=== PATIENT | female | born 1955 | race Caucasian/White ===

== ENCOUNTER → 2019-03-15 14:53 | Outpatient (BNVA) | payer MEDICAID, SELFPAY | PROVIDERS: Family Provider Registered Nurse; PCP Registered Nurse; Visit Provider Specialist | DX: G40.209 Localization-related (focal) (partial) symptomatic epilepsy and epileptic syndromes with complex partial seizures, not intractable, without status epilepticus (principal) | CPT/HCPCS: 99213 ==

== ENCOUNTER → 2019-07-28 15:02 | Outpatient (BNVA) | payer MEDICAID, SELFPAY | PROVIDERS: Family Provider Registered Nurse; PCP Registered Nurse; Visit Provider Specialist | DX: G40.209 Localization-related (focal) (partial) symptomatic epilepsy and epileptic syndromes with complex partial seizures, not intractable, without status epilepticus (principal) | CPT/HCPCS: 99214 ==

== ENCOUNTER → 2019-11-30 13:39 | Outpatient (BNVA) | payer MEDICAID, SELFPAY | PROVIDERS: Family Provider Registered Nurse; PCP Registered Nurse; Visit Provider Specialist | DX: G40.209 Localization-related (focal) (partial) symptomatic epilepsy and epileptic syndromes with complex partial seizures, not intractable, without status epilepticus (principal) | CPT/HCPCS: 99214 ==

== ENCOUNTER → 2020-05-02 12:50 | Outpatient (BNVA) | payer MEDICAID, SELFPAY | PROVIDERS: Family Provider Registered Nurse; PCP Registered Nurse; Visit Provider Specialist | DX: G40.209 Localization-related (focal) (partial) symptomatic epilepsy and epileptic syndromes with complex partial seizures, not intractable, without status epilepticus (principal) | CPT/HCPCS: 99213 ==

== ENCOUNTER → 2020-05-08 16:02 | Outpatient (BNVA) | payer MEDICAID, SELFPAY | PROVIDERS: Family Provider Registered Nurse; PCP Registered Nurse; Visit Provider Registered Nurse | DX: I10 Essential (primary) hypertension (principal) | CPT/HCPCS: 80053; 80061; 85025 ==

== ENCOUNTER → 2020-09-12 10:46 | Outpatient (BNVA) | payer MEDICAID, SELFPAY | PROVIDERS: Family Provider Registered Nurse; PCP Registered Nurse; Visit Provider Specialist | DX: M51.16 Intervertebral disc disorders with radiculopathy, lumbar region (principal); G40.209 Localization-related (focal) (partial) symptomatic epilepsy and epileptic syndromes with complex partial seizures, not intractable, without status epilepticus; G40.309 Generalized idiopathic epilepsy and epileptic syndromes, not intractable, without status epilepticus; R41.3 Other amnesia; R20.0 Anesthesia of skin | CPT/HCPCS: 99215 ==

== ENCOUNTER 2020-10-10 10:32 | Outpatient (CLI) | payer MEDICAID, SELFPAY ==
--- NOTE | 2020-10-10 11:00 | MR_ITS ---
WS: [id number] MRI LUMBAR SPINE NONCONTRAST TECHNIQUE: Sagittal T1, T2 and STIR imaging. Axial T1 and T2 imaging. CLINICAL INFORMATION: R20.0 - Anesthesia of skin COMPARISON: None. FINDINGS: Mild lumbar curve. No acute compression. Chronic compression superior endplate T12. Chronic biconcave compression at L1. Mild chronic biconcave compression L4. No acute compression fractures. L1 and L4 compression deformities have progressed since 2012. Mild disc bulging T12-L1 with slight effacement o f ventral thecal sac and mild central canal stenosis. L1-L2: Central disc protrusion with moderate central canal stenosis. Crowding of the cauda equina ner ve rootlets. Prominent dorsal epidural fat and facet arthropathy contributes to stenosis. This is sli ghtly progressed since 2012. Right foraminal protrusion impinges the exiting right L1 nerve root with moderate right foraminal narrowing. This is progressed from previous. L2-L3: Mild annular bulging with mild central canal stenosis. Moderate facet arthropathy with ligamen t flavum hypertrophy. Mild bilateral foraminal narrowing. L3-L4: Mild disc bulging with osteophytic ridging. Shallow central protrusion with moderate central c anal stenosis. Moderate facet arthropathy with ligament flavum hypertrophy. Left foraminal protrusion with moderate left foraminal narrowing. Mild right foraminal narrowing. Moderate facet arthropathy. Spinal canal narrowing at this level is new since 2012 L4-L5: Mild disc bulging with moderate central canal stenosis. Impingement traversing L5 nerve roots bilaterally. Moderate facet arthropathy and ligamentum flavum hypertrophy. Left facet edema. Left for aminal protrusion impinges the exiting left L4 nerve root with severe left foraminal narrowing. Centr al canal stenosis at this level has progressed. L5-S1: Mild disc bulging with osteophytic ridging. Central canal is patent. Moderate left and mild ri ght foraminal narrowing. Moderate facet arthropathy. Visualized pelvic bony structures: Normal. Paravertebral soft tissues: Normal. MR/MR lumbar spine wo con* [id number] IMPRESSION: 1. Chronic compression deformities described above. No acute compression fract ures. 2. Moderate central canal narrowing at L1-2, L3-4 and L4-5 progressed since 13. Prominent dorsal epidural fat in combination with facet arthropathy and lig amentum flavum hypertrophy contributes to central canal stenosis. 3. Moderate right L1-2 foraminal narrowing impinges the exiting right L1 nerv e root. This is progressed compared to previous. 4. Moderate left L3-4 and moderate to severe left L4-5 foraminal narrowing wit h small foraminal protrusions impinges the exiting left L3 and L4 nerve roots r espectively. This is progressed compared to previous. 5. Moderate facet arthropathy worse at left L4-L5 and bilateral L5-S1. 6. Mild central canal stenosis in the fighter pilot imaging cervical spine due to disc osteophyte complexes.
== END 2020-10-10 10:33 | disposition home or self-care (01) ==
LOC: RADSHAW 10:35
PROVIDERS: PCP Registered Nurse; Visit Provider Specialist
DX: R20.0 Anesthesia of skin (principal); M48.02 Spinal stenosis, cervical region; M25.78 Osteophyte, vertebrae; M47.816 Spondylosis without myelopathy or radiculopathy, lumbar region; M47.817 Spondylosis without myelopathy or radiculopathy, lumbosacral region; M48.061 Spinal stenosis, lumbar region without neurogenic claudication
CPT/HCPCS: 72148

== ENCOUNTER → 2020-11-01 09:35 | Outpatient (BNVA) | payer MEDICAID, SELFPAY | PROVIDERS: PCP Registered Nurse; Visit Provider Specialist | DX: G40.209 Localization-related (focal) (partial) symptomatic epilepsy and epileptic syndromes with complex partial seizures, not intractable, without status epilepticus (principal); R41.3 Other amnesia; M51.16 Intervertebral disc disorders with radiculopathy, lumbar region | CPT/HCPCS: 99214 ==

== ENCOUNTER 2021-05-06 14:48 | Observation (INO) | payer MEDICARE, MEDICAID, SELFPAY ==
--- NOTE | 2021-05-06 14:52 | ECG_ITS ---
[facility] Test Date: 2021-05-06 Pat Name: Kelly Kwong Department: Room: 250 Gender: Female Manager Customer: : 1955 Requested By: Zahira Dumont Order Number: [id number] Serafin MD: Silke Franco M.D. Measurements Intervals [place] Rate: 89 P: 28 SC: 175 QRS: -10 QRSD: 102 T: 13 QT: 351 QTc: 429 Interpretive Statements SINUS RHYTHM POSSIBLE LEFT ATRIAL ENLARGEMENT [-0.1mV P-WAVE IN V1/V2] POSSIBLE LEFT VENTRICULAR HYPERTROPHY [VOLTAGE CRITERIA PLUS LAE OR QRS WIDENING] POSSIBLE ANTERIOR MYOCARDIAL INFARCTION , PROBABLY OLD [30 ms Q WAVE IN V3/V4, OR R < 0.2 mV IN V4] No previous ECG available for comparison Electronically Signed On 05-07-2021 16:13:42 DAIRY PROCESSING SUPERVISOR by Silke Franco M.D. [id number]
--- NOTE | 2021-05-06 14:52 | XRR_ITS ---
PROCEDURE INFORMATION: Exam: XR Chest Exam date and time: 05/06/2021 2:52 PM Age: 66 years old Clinical indication: Pain; Chest pressure; Patient HX: C/O intermittent cp/pressure w near syncope x 2 weeks; Additional info: Dyspnea TECHNIQUE: Imaging protocol: XR of the chest. Views: 1 view. COMPARISON: No relevant prior studies available. FINDINGS: Lungs: Unremarkable. No consolidation. Pleural spaces: Unremarkable. No pleural effusion. No pneumothorax. Heart/Mediastinum: Unremarkable. No cardiomegaly. Bones/joints: Unremarkable. XR/XR chest 1V portable [id number] IMPRESSION: No acute findings.
[2021-05-06 14:54] VITALS: BP 135/87; PULSE 103; RESP 20; TEMP 36.3; O2SAT 95; BMI 36.5
[2021-05-06] MEDS: sodium chloride 0.9% 500 ML IV (15:00)
--- NOTE | 2021-05-06 15:07 | W.ED.GENADLT ---
HPI - General Adult General: Chief complaint: Arrhythmia/Palpitations Stated complaint: CHEST PAIN Time Seen by Provider: 05/06/21 14:51 History of Present Illness: CC: Chest Pain HPI: This is a [66] yo patient hx of HTN, HLD presenting to the ED w/ acute onset intermittent substernal chest pain since 2 hrs ago after experiencing 3 minutes of significant palptiations and diaphoresis. Patient alerted her son who is a cemetery vault installer and was told to call EMS. On arrival, patient still reports 5 out of 10 squeezing chest pain. Of note, patient tells me that she has had similar episodes of lightheadedness in the last 2 weeks. Pain is not tearing in nature and does not radiate to the back. Endorse nausea but has no associated with vomiting or decreased PO intake. Denies any recent sympathomimetic drug use. Patient denies any cough. Denies palpitations, syncope symptoms. Pain not positional. Norecent immobility, surgery, unilateral leg swelling, or prior PE. Patient denies any orthopnea, paroxysmal nocturnal dyspnea, weight gain, or increased leg swellings. En route, patient received nitroglycerin tablet and 325mg of ASA with some improvement in chest pain. Onset: 2 hrs of chest pain Duration: ongoing for the last 2 hrs Location: home Severity: moderate Associated symptoms: Reports chest pain and palpitations; Deny dyspnea, nausea, rash or vomiting Review of Systems Const: Denies: fever(s) or chills Eyes: Denies: change in vision ENMT: Denies: mouth pain Card: Reports: chest pain and palpitations Resp: Denies: dyspnea or non-productive cough GI: Denies: abdominal pain, nausea, vomiting or diarrhea : Denies: dysuria Musc: Denies: extremity pain Skin/Breast: Denies: rash or new lesions Neuro: Reports: other (+light-headedness); Denies: weakness in extremities Psych: Reports: other (Normal mood) [place]/Lymph: Denies: easy bruising PFSH ED PFSH: Medical History (Updated 05/06/21 @ 15:10 by Zahira Dumont MD) Hyperlipidemia Hypertension Family History Other CAD (coronary artery disease) Social History (Updated 05/06/21 @ 15:10 by Zahira Dumont MD) Smoking and tobacco status: never smoked Alcohol intake: never History of recent travel: No Physical Exam Const: COMMON NORMALS: alert HENMT: COMMON NORMALS: atraumatic HEAD & SCALP: atraumatic MOUTH: moist mucous membranes not abnormal Eye: COMMON NORMALS: EOMs intact bilaterally and conjunctivae normal CONJUNCTIVA: Yes conjunctivae normal Neck/C-Spine: COMMON NORMALS: full ROM and supple Resp: COMMON NORMALS: normal respiratory effort and clear to auscultation bilaterally AUSCULTATION: clear to auscultation bilaterally Cardio: COMMON NORMALS: regular rate RATE: regular rate OTHER: 2+ radial pulse, +diastolic murmur GI: COMMON NORMALS: Soft to palpation and non-tender PALPATION: Yes Soft to palpation Extremity: COMMON NORMALS: full ROM Neuro: SENSORIUM/ORIENTATION: Yes alert MOTOR EXAM: No Abnormal motor strength present and Other motor observations present (no focal motor deficits) OTHER: Mental status? Awake, alert, and oriented to self, year, month, location, and situation.? Following simple axial and appendicular commands.? Has appropriate fund of knowledge, comprehension, and insight.? Able to recall and understands pertinent aspects of medical history and current treatment status.? ? Language? Speech is fluent without word-finding difficulties.? Intact naming, expression, reception interviewer, and repetition.? ? Cranial nerves? 2,3,4,6: PERRL, EOMI with no nystagmus. 5: Intact sensation to light touch, symmetric? 7: Smile symmetrical, no facial droop.? 8: Hearing grossly intact.? 9,10: Normal palate movement.? 11: Normal strength in trapezius bilaterally 12: Tongue protrudes midline.? ? Motor examination? Normal bulk & tone. Strength as follows (R/L): Delts (5/5), Biceps (5/5), Triceps (5/5), Wrist ext (5/5), hip flexors (5/5), plantarflexors (5/5), dorsiflexors (5/5). ? Sensation? Light Touch: Grossly intact and equal in upper and lower extremities bilaterally? Romberg: Negative.? Distal joint position sense intact ? Coordination? [id number]-[id number]-finger movements intact without dysmetria or past-pointing.? Rapid fingertaps: preserved amplitude without decriment.? No tremor, myoclonus or truncal ataxia.? ? Gait/stance? Steady, normal narrow base gait with appropriate arm swing and turning.? Tandem gait without hesitation or loss of balance. Psych: COMMON NORMALS: speech normal SPEECH: Yes normal speech MOOD & AFFECT: Yes euthymic mood Course Vital Signs: Vital signs: Vital Signs Temperature 97.4 F L 05/06/21 14:54 Pulse Rate 84 05/06/21 15:42 Respiratory Rate 14 05/06/21 15:42 Blood Pressure 143/79 05/06/21 15:42 Pulse Oximetry 93 05/06/21 15:42 MDM - General Adult Medical Decision Making [66]yo patient w/ hx of HTN, HLD presenting to the ED With acute substernal chest pain X 2 hrs with hx of similar prior pain. Currently 5/10 chest pain. En route, patient received ASA 325mg and nitroSL. Given History And Exam today I have moderate to high suspicion for ACS/UA/NSTEMI. Today, I have NO suspicion for pneumothorax, pneumonia, pulmonary embolus, tamponade, aortic dissection or other emergent problem as a cause for this presentation. ECG did not show any signs of acute STEMI. Workup: ECG x2, CXR, CBC, BMP, Troponin x 2 Intervention: SL nitro, morphine, 500 cc of NS Findings: ECG: No overt evidence of STEMI, no hyperacute T waves, localizable STD or T wave inversions. No evidence of Brugada?s sign, delta wave, epsilon wave, significantly prolonged QTc, or malignant arrhythmia. No Q waves. Other Labs unremarkable for emergent problems. CXR: Without PTX, PNA, or widened mediastinum HEART score: 5 [4:30pm] On reassessment, the patient is currently chest pain free. S/p aspirin 325mg. Will defer antiplatelet and anticoagulation to the inpatient team. Pending repeat troponin. HDS, AAOx3. Troponin x 1 of 27. Chest pain improved after medication. Will be admitted for high risk light-headadness and chest pain workup. Disposition: Inpatient admission. Lab Data : 05/06/21 15:00 05/06/21 15:00 Radiology Impressions Chest X-Ray 05/06/21 14:52 IMPRESSION: No acute findings. Laboratory Results WBC 8.8 10^3/uL (4.0-10.0) 05/06/21 15:00 RBC 4.43 10^6/uL (4.1-5.3) 05/06/21 15:00 Hgb 13.9 g/dL (11.5-15.3) 05/06/21 15:00 Hct 41.9 % (37.0-47.0) 05/06/21 15:00 MCV 94.6 fl (81-99) 05/06/21 15:00 MCH 31.4 pg (28.0-34.0) 05/06/21 15:00 MCHC 33.2 g/dL (30.0-36.0) 05/06/21 15:00 RDW 12.5 % (12.1-15.1) 05/06/21 15:00 Plt Count 343 10^3/cmm (130-400) 05/06/21 15:00 MPV 11.0 fL (7.4-10.4) H 05/06/21 15:00 Neut % (Auto) 72.3 % 05/06/21 15:00 Lymph % (Auto) 20.9 % 05/06/21 15:00 [place] % (Auto) 5.5 % 05/06/21 15:00 Eos % (Auto) 0.3 % 05/06/21 15:00 Baso % (Auto) 0.8 % 05/06/21 15:00 Neut # (Auto) 6.38 10^3/uL (1.8-7.7) 05/06/21 15:00 Lymph # (Auto) 1.9 10^3/uL (0.8-4.8) 05/06/21 15:00 [place] # (Auto) 0.5 10^3/uL (0.2-0.9) 05/06/21 15:00 Eos # (Auto) 0.0 10^3/uL (0.0-0.8) 05/06/21 15:00 Baso # (Auto) 0.1 10^3/uL (0.0-0.1) 05/06/21 15:00 Nucleated RBC % (auto) 0 % 05/06/21 15:00 Nucleated RBCs # 0.0 /100WBC 05/06/21 15:00 Sodium 140 mmol/L (136-145) 05/06/21 15:00 Potassium 3.5 mmol/L (3.5-5.1) 05/06/21 15:00 Chloride 104 mmol/L (98-107) 05/06/21 15:00 Carbon Dioxide 24 mmol/L (22-29) 05/06/21 15:00 Anion Gap 15.5 (5-19) 05/06/21 15:00 BUN 12 mg/dL (8-23) 05/06/21 15:00 Creatinine 0.8 mg/dL (0.5-0.9) 05/06/21 15:00 GFR Calculation 72.0 mL/min (90-130) L 05/06/21 15:00 Glucose 146 mg/dL (65-115) H 05/06/21 15:00 Calculated Osmolality 292 mOsm/kg (285-295) 05/06/21 15:00 Calcium 9.4 mg/dL (8.5-10.5) 05/06/21 15:00 Troponin T Baseline 27 ng/L (0-10) H 05/06/21 15:00 Imaging Data Other Imaging: Radiologist's impression: [address] [address] XRay Report Signed Patient: Kelly Kwong Unit #: [id number] : 1955 Age/Sex: 66 / F ADM Date: 05/06/21 Loc: ER Room/Bed: Attending Dr: Ordering Provider/Ordering MD: Zahira Dumont MD Date of Service: 05/06/21 Procedure(s): XR chest 1V portable [id number] Accession Number(s): [id number] Report Number: [id number] PROCEDURE INFORMATION: Exam: XR Chest Exam date and time: 05/06/2021 2:52 PM Age: 66 years old Clinical indication: Pain; Chest pressure; Patient HX: C/O intermittent cp/pressure w near syncope x 2 weeks; Additional info: Dyspnea TECHNIQUE: Imaging protocol: XR of the chest. Views: 1 view. COMPARISON: No relevant prior studies available. FINDINGS: Lungs: Unremarkable. No consolidation. Pleural spaces: Unremarkable. No pleural effusion. No pneumothorax. Heart/Mediastinum: Unremarkable. No cardiomegaly. Bones/joints: Unremarkable. XR/XR chest 1V portable [id number] IMPRESSION: No acute findings. ? Dictated By: Angeline Barber MD Signed By: Angeline Barber MD Signed Date/Time: 05/06/21 154 DD/ 1452 Discharge Plan Discharge Patient Disposition: Admitted As Inpatient Clinical Impression: Near syncope, Diaphoresis, Chest pain Condition: Stable Coding Level of Care Code ED Correctional Officer Chief for Chg Fwd Exam Comprehensive
[2021-05-06 15:30] LABS: Basophils # 0.1 10^3/uL (0.0-0.1); Basophils % 0.8 %; Eosinophils % 0.3 %; Hematocrit 41.9 % (37.0-47.0); Hemoglobin 13.9 g/dL (11.5-15.3); Lymphocytes # 1.9 10^3/uL (0.8-4.8); Lymphocytes % 20.9 %; Mean Corpuscular HGB Conc 33.2 g/dL (30.0-36.0); Mean Corpuscular Hemoglobin 31.4 pg (28.0-34.0); Mean Corpuscular Volume 94.6 fl (81-99); Monocytes # 0.5 10^3/uL (0.2-0.9); Monocytes % 5.5 %; Neutrophils # 6.38 10^3/uL (1.8-7.7); Neutrophils % 72.3 %; Nucleated Red Blood Cells % 0 %; Platelet Count 343 10^3/cmm (130-400); Red Blood Count 4.43 10^6/uL (4.1-5.3); Red Cell Distribution Width 12.5 % (12.1-15.1); White Blood Count 8.8 10^3/uL (4.0-10.0)
[2021-05-06 15:42] VITALS: BP 143/79; PULSE 84; RESP 14; O2SAT 93
[2021-05-06 16:19] LABS: Anion Gap 15.5 (5-19); Blood Urea Nitrogen 12 mg/dL (8-23); Calcium 9.4 mg/dL (8.5-10.5); Carbon Dioxide 24 mmol/L (22-29); Chloride 104 mmol/L (98-107); Glucose 146 mg/dL (65-115); Osmolality Calculated 292 mOsm/kg (285-295); Potassium 3.5 mmol/L (3.5-5.1); Sodium 140 mmol/L (136-145)
[2021-05-06 16:21] LABS: Troponin(5th) Baseline 27 ng/L (0-10)
[2021-05-06 16:31] VITALS: BP 130/80; PULSE 88; RESP 16; O2SAT 95
[2021-05-06] MEDS: morphine 4 mg/mL SDV 1 mL 2 MG IVP (16:41)
--- NOTE | 2021-05-06 16:52 | ECG_ITS ---
[facility] Test Date: 2021-05-06 Pat Name: Kelly Kwong Department: Room: 250 Gender: Female Mover: : 1955 Requested By: Zahira Dumont Order Number: [id number] Serafin MD: Silke Franco M.D. Measurements Intervals [place] Rate: 72 P: 16 ME: 176 QRS: -14 QRSD: 86 T: 2 QT: 370 QTc: 408 Interpretive Statements SINUS RHYTHM VOLTAGE CRITERIA FOR LVH [MEETS CRITERIA IN ONE OF: R(aVL), S(V1), R(V5), R(V5/V6)+S(V1)] POSSIBLE ANTERIOR MYOCARDIAL INFARCTION , PROBABLY OLD [30 ms Q WAVE IN V3/V4, OR R < 0.2 mV IN V4] Compared to ECG 05/06/2021 15:16:15 No significant changes Electronically Signed On 05-07-2021 16:22:26 POWER PLANT SUPERINTENDENT by Silke Franco M.D. [id number]
--- NOTE | 2021-05-06 16:58 | PM.HP ---
Providers/Chief Complaint Admitting Physician: Spencer Napier MD Primary Care Provider: IVY Serra Chief Complaint: CHEST PAIN History of Present Illness Kelly Kwong is a 66 year old female with a past medical history of hypertension, lumbar disc disease, seizures, who presents to [facility] due to chest pain. Patient tells me that today after temple, she got home, and she felt lightheaded, dizzy almost as if she was in a pass out but never passed out that she start develop anterior chest pain, substernal, pressure-like pain, nonradiating, associate with shortness of breath, she also felt her heart beating she tells out of control, it was beating so hard and fast that she could hear in her ear, she is worried that she was having a heart attack so she called her brother who came over, who suggested for her to come to the hospital. Baseline troponin 29, EKG no acute ST-T wave changes, no current chest pain, hospitalist team was called for admission Review of Systems Const: Denies: fever(s) Eyes: Denies: change in vision or blurry vision ENMT: Denies: nasal congestion Resp: Denies: dyspnea, productive cough, non-productive cough or wheezing GI: Denies: abdominal pain, nausea, vomiting, hematemesis, diarrhea or constipation : Denies: flank pain, dysuria or urinary frequency Musc: Denies: neck pain or back pain Skin/Breast: Denies: rash Neuro: Denies: headache(s) Endo: Denies: polyuria or polydipsia Medications/Allergies Home Medications Medication Instructions Recorded Confirmed Last Taken Type ferrous sulfate 325 mg (65 mg 325 mg PO DAILY tab 03/15/19 05/06/21 05/06/21 History iron) tablet (iron) clobazam 20 mg tablet (Onfi) 20 mg PO BID #60 tab 04/02/21 05/06/21 05/06/21 Rx benazepril 20 mg tablet 20 mg PO DAILY 05/06/21 05/06/21 05/06/21 History citalopram 40 mg tablet 40 mg PO DAILY 05/06/21 05/06/21 05/06/21 History lovastatin 40 mg tablet 40 mg PO DAILY 05/06/21 05/06/21 05/05/21 History Allergies Allergy/AdvReac Type Severity Reaction Status Date / Time carbamazepine Allergy itching Verified 03/15/21 09:52 [From Carbatrol] PFSH Acute PFSH: Medical History Hyperlipidemia Hypertension Surgical History (Updated 05/06/21 @ 16:59 by Spencer Napier MD) History of open reduction and internal fixation (ORIF) procedure Family History Other CAD (coronary artery disease) Social History (Updated 05/06/21 @ 15:10 by Zahira Dumont MD) Smoking and tobacco status: never smoked Alcohol intake: never History of recent travel: No Vitals/I&O/Wt Last Vital Signs Temp 97.4 F L 05/06/21 14:54 Pulse 88 05/06/21 16:31 Resp 16 05/06/21 16:31 BP 130/80 05/06/21 16:31 Pulse Ox 95 05/06/21 16:31 Weight last 48 hrs Weight 93.44 kg Physical Exam Const: COMMON NORMALS: no acute distress and patient oriented x3 HENMT: COMMON NORMALS: normocephalic HEAD & SCALP: normocephalic Eye: COMMON NORMALS: Equal, round and reactive pupils present Neck/C-Spine: COMMON NORMALS: full ROM and no lymphadenopathy Lymph: LYMPHATIC: no lymphadenopathy noted Resp: COMMON NORMALS: normal respiratory effort, No retractions, No use of accessory muscles and clear to auscultation bilaterally AUSCULTATION: clear to auscultation bilaterally Cardio: COMMON NORMALS: no JVD, regular rate, regular rhythm, S1 normal heart sound present and S2 normal heart sound present RATE: regular rate RHYTHM: regular rhythm HEART SOUNDS: S1 normal heart sound present and S2 normal heart sound present GI: COMMON NORMALS: Normal to inspection, nondistended, normoactive bowel sounds present, Soft to palpation, non-tender, No hepatosplenomegaly present, no masses and no bruits PALPATION: Yes Soft to palpation and Yes No hepatosplenomegaly present Extremity: COMMON NORMALS: capillary refill normal, no clubbing, cyanosis or edema, no calf tenderness and no pedal edema Neuro: COMMON NORMALS: patient oriented x3 Psych: COMMON NORMALS: mental status grossly normal Data : 05/06/21 15:00 05/06/21 15:00 A&P Assessment and plan (1) Near syncope: Status: Acute (2) Chest pain: Status: Acute Plan Chest pain -Serial EKGs, serial troponins -Telemetry monitoring -Monitor for chest pain -Aspirin 325, 81 mg thereafter -Continue statin -Coreg 3.125 twice daily -Cardiac echocardiogram -Cardiac stress test tomorrow morning -N.p.o. midnight -Full code -Lovenox for DVT prophylaxis Presyncope -Monitor, telemetry monitoring -Cardiac echo -Carotid artery ultrasound History of seizures, continue clobazam Hypertension: Continue meds Attestations Medical Necessity Statement*: Patient requires hospitalization, outpatient with observation for chest pain Coding Level of Care Code Acute Field Account Manager for Shayy Guardado Diagnoses Near syncope R55 Chest pain R07.9
[2021-05-06 17:18] VITALS: BP 135/82; PULSE 81; RESP 18; O2SAT 96
--- NOTE | 2021-05-06 17:18 | ECG_ITS ---
[facility] Test Date: 2021-05-07 Pat Name: Kelly Kwong Department: Room: 250 Gender: Female Physician General Practice: Hetal Clark : 1955 Requested By: Spencer Napier Order Number: [id number] Betancourt MD: Silke Franco M.D. Interpretive Statements NAME OF STUDY: LEXISCAN SESTAMIBI STRESS TEST INDICATION: Chest Pain PROCEDURE: At the baseline, the blood pressure was 148/97 mmHg, oxygen saturation at 89% with a heart rate of 64 bpm. The electrocardiogram showed normal sinus rhythm, normal axis with poor anterior R wave progression. Nonspecific T wave inversion in lead III and aVF. The Lexiscan was infused over a period of 20 seconds. A total of 0.4 milligrams of Lexiscan was infused. The stress phase was continued for a total of 5 minutes. Heart rate at the end of the stress phase was 78 bpm and blood pressure of 154/85 mmHg. The EKG at the peak infusion revealed sinus rhythm with no significant ST-T wave changes. The study was terminated due to protocol completion. Sestamibi was injected 20 seconds after the Lexiscan infusion. Blood pressure at the end of the recovery phase was 152/90 mmHg, oxygen saturation 89% with a heart rate of 79 beats per minute. CONCLUSION: 1. No significant EKG changes with the LexiScan infusion. 2. No LexiScan induced chest pain or cardiac arrhythmia. 3. Normal blood pressure and heart rate response. 4. Sestamibi/sestamibi perfusion scan pending; see separate report. Electronically Signed On 05-07-2021 16:55:15 SALES DATA ANALYST by Silke Franco M.D. [id number]
[2021-05-06 17:19] VITALS: BMI 36.5
[2021-05-06] MEDS: aspirin 325 mg EC Tablet PO (17:45)
[2021-05-06] MEDS: enoxaparin 40 mg/0.4 mL Syringe SUBCUT (17:45)
[2021-05-06] MEDS: carvedilol 3.125 mg Tablet PO (17:45)
[2021-05-06] MEDS: famotidine 20 mg Tablet PO (17:45)
[2021-05-06 17:52] LABS: Troponin 5 2HR Delta 0 ABS# (0-10)
[2021-05-06 17:58] LABS: Estmated Average Glucose 108; Hemoglobin A1C 5.4 % (4.0-6.0)
[2021-05-06 18:37] LABS: Magnesium 1.8 mg/dL (1.7-2.3); NT Pro B Type Natriuretic Pept 85 pg/mL (0-125); Thyroid Stimulating Hormone 0.85 uIU/mL (0.27-4.20)
[2021-05-06 20:00] VITALS: BP 134/80; PULSE 72; RESP 17; TEMP 36.4; O2SAT 93
--- NOTE | 2021-05-06 20:52 | ECG_ITS ---
[facility] Test Date: 2021-05-07 Pat Name: Kelly Kwong Department: Room: 250 Gender: Female Practice Managers: : 1955 Requested By: Zahira Dumont Order Number: [id number] Serafin MD: Silke Franco M.D. Measurements Intervals [place] Rate: 57 P: 20 SC: 174 QRS: -8 QRSD: 92 T: 4 QT: 397 QTc: 389 Interpretive Statements SINUS BRADYCARDIA MINIMAL VOLTAGE CRITERIA FOR LVH, CONSIDER NORMAL VARIANT NONSPECIFIC T-WAVE ABNORMALITY Compared to ECG 05/06/2021 17:59:12 T-wave abnormality now present Sinus rhythm no longer present Myocardial infarct finding no longer present Electronically Signed On 05-07-2021 16:19:37 COMMISSIONING SPECIALIST by Silke Franco M.D. [id number]
[2021-05-06 21:26] LABS: Troponin 5 6HR 27.78 ng/L (0-10)
[2021-05-06 21:40] LABS: Troponin 5 6HR Delta 0.78 ng/L (0-12)
[2021-05-06 22:00] VITALS: PULSE 65
[2021-05-07] VITALS (7 sets, daily range): BP systolic 152–196; BP diastolic 79–92; PULSE 60–77; RESP 13–17; TEMP 36.6–37; O2SAT 94–96
[2021-05-07 04:30] LABS: Add Urine Microscopic? YES; Bilirubin Urine 1+ (Negative); Blood Urine 2+ (Negative); Glucose Urine UA Norm (Normal); Ketones Urine 1+ (Negative); Leukocyte Esterase Urine Negative (Negative); Nitrate Urine Negative (Negative); Protein Urine Trace (Negative); Specific Gravity, Urine 1.025 (1.005-1.030); Urine Appearance Clear (CLEAR); Urine Color Yellow (Yellow); Urobilinogen Urine 1 mg/dL (Negative); pH Urine 5 (5-7)
[2021-05-07 04:33] LABS: Add Urine Culture? No; Bacteria Urine 1+ /hpf; Mucus Urine 3+ /hpf; WBC Urine 0-4 /hpf (0-5)
[2021-05-07 04:55] LABS: Basophils % 0.7 %; Eosinophils # 0.1 10^3/uL (0.0-0.8); Eosinophils % 1.8 %; Hematocrit 35.7 % (37.0-47.0); Hemoglobin 11.7 g/dL (11.5-15.3); Lymphocytes # 1.6 10^3/uL (0.8-4.8); Lymphocytes % 27.1 %; Mean Corpuscular HGB Conc 32.8 g/dL (30.0-36.0); Mean Corpuscular Hemoglobin 31.6 pg (28.0-34.0); Mean Corpuscular Volume 96.5 fl (81-99); Mean Platelet Volume 10.1 fL (7.4-10.4); Monocytes # 0.6 10^3/uL (0.2-0.9); Monocytes % 9.1 %; Neutrophils # 3.71 10^3/uL (1.8-7.7); Neutrophils % 61.1 %; Nucleated Red Blood Cells % 0 %; Platelet Count 254 10^3/cmm (130-400); Red Cell Distribution Width 12.6 % (12.1-15.1); White Blood Count 6.1 10^3/uL (4.0-10.0)
[2021-05-07 05:19] LABS: Alanine Aminotransferase 10 U/L (0-33); Albumin Level 3.6 g/dL (3.5-5.2); Alkaline Phosphatase 70 IU/L (35-105); Anion Gap 13.3 (5-19); Aspartate Amino Transferase 16 U/L (0-32); Blood Urea Nitrogen 11 mg/dL (8-23); Calcium 8.7 mg/dL (8.5-10.5); Carbon Dioxide 26 mmol/L (22-29); Chloride 106 mmol/L (98-107); Chol HDL Ratio 2.63 mg/dL (0.0-4.40); Cholesterol 134 mg/dL (0-200); Globulin 1.9 g/dL (1.3-4.6); Glomerular Filtration Rate 100.3 mL/min (90-130); Glucose 103 mg/dL (65-115); HDL Cholesterol 51 mg/dL (60-100); LDL Cholesterol Calculated 71 mg/dL (50-129); LDL HDL Ratio 1.39 RATIO (0.00-3.22); Magnesium 1.9 mg/dL (1.7-2.3); Osmolality Calculated 292 mOsm/kg (285-295); Phosphorus 3.9 mg/dL (2.5-4.5); Potassium 4.3 mmol/L (3.5-5.1); Sodium 141 mmol/L (136-145); Total Bilirubin 0.2 mg/dL (0.15-1.2); Total Protein 5.5 g/dL (6.6-8.7); Triglycerides 61 mg/dL (0-150)
--- NOTE | 2021-05-07 06:36 | PC.NURSE ---
patient c/o chest pain, Bp 203/114, puse 72, tele reading normal sinus, 02 sat 95% in room air, c/o bilat carotid veins pounding, no bruitt, hospitalist notified, order received for nitro patch.
[2021-05-07] MEDS: nitroglycerin 1 gm/inch oint Pkt 1 INCH TOPICAL ×2 (06:50→14:18)
--- NOTE | 2021-05-07 07:00 | USCV_ITS ---
Kelly Kwong Age: 66 Gender: F : 1955 Exam Date: 05/07/2021 08:51 Ordering Phys: Spencer Napier MD Technologist: [place] [facility] [place]: [place] BP: 143 / 80 HR: 61 Rhythm: Sinus Technical Quality: Adequate MEASUREMENTS (Male / Female) Normal Values 2D ECHO LV Diastolic Diameter PLAX 4.0 cm 4.2 - 5.9 / 3.9 - 5.3 cm LV Systolic Diameter PLAX 2.3 cm IVS Diastolic Thickness 0.9 cm 0.6 - 1.0 / 0.6 - 0.9 cm IVS Systolic Thickness 1.3 cm LVPW Diastolic Thickness 1.1 cm 0.6 - 1.0 / 0.6 - 0.9 cm LVPW Systolic Thickness 1.5 cm LVOT Diameter 2.0 cm LV Ejection Fraction 2D Teich 72.1 % LV Ejection Fraction MOD 2C 64.8 % LV Ejection Fraction 2C AL 65.1 % LA Diameter 3.0 cm Aorta at Sinotubular Diameter 2.9 cm M-MODE Aortic Annulus Diameter 3.5 cm LA Ao Ratio MM 0.8 MV E Point Septal Separation 0.5 cm DOPPLER AV Peak Velocity 145.7 cm/s LVOT Peak Velocity 100.0 cm/s AV Area Cont Eq vti 2.3 cm squared AV Area Cont Eq pk 2.2 cm squared MV Area PHT 5.0 cm squared Mitral E to A Ratio 0.5 MV E' Velocity 30.5 cm/s Mitral E to MV E' Ratio 8.0 Mitral E to LV E' Lateral Ratio 6.9 Mitral E to LV E' Septal Ratio 9.4 TR Peak Velocity 237.7 cm/s TR Peak Gradient 22.6 mmHg TV Peak E Velocity 82.0 cm/s Right Atrial Pressure 3.0 mmHg Pulmonary Artery Systolic Pressu 25.6 mmHg RV Acceleration Time 0.1 s FINDINGS Left Ventricle Normal left ventricular size. LV systolic function is normal with EF of 55-60%. No regional wall motion abnormalities. Grade 1 diastolic dysfunction Right Ventricle The right ventricle is normal in size and function. Right Atrium The right atrium is normal in size. Left Atrium The left atrium is mildly dilated Mitral Valve Structurally normal mitral valve without significant stenosis or prolapse. There is mild mitral regurgitation. Aortic Valve Structurally normal aortic valve without significant sclerosis or stenosis. There is no aortic regurgitation. Tricuspid Valve Structurally normal tricuspid valve without significant stenosis. Trace tricuspid regurgitation. Pulmonary artery systolic pressure is normal. Pulmonic Valve Structurally normal pulmonic valve without significant stenosis. There is no pulmonic regurgitation. Pericardium Normal pericardium without effusion. Aorta Normal ascending aorta dimension. CONCLUSIONS LV systolic function is normal with EF of 55-60% Grade 1 diastolic dysfunction Left atrium is mildly dilated Mild mitral regurgitation No comparison studies are available Jose Luis Mcdonald MD (Electronically Signed) Final Date: 07 May 2021 17:12 S
--- NOTE | 2021-05-07 08:58 | ECG_ITS ---
[facility] Test Date: 2021-05-07 Pat Name: Kelly Kwong Department: Room: 250 Gender: Female Rouge Miller: : 1955 Requested By: Spencer Napier Order Number: [id number] Betancourt MD: Silke Franco M.D. Measurements Intervals [place] Rate: 63 P: 3 [place]: 165 QRS: -15 QRSD: 122 T: -11 QT: 378 QTc: 390 Interpretive Statements SINUS RHYTHM MODERATE INTRAVENTRICULAR CONDUCTION DELAY [110+ ms QRS DURATION] MODERATE VOLTAGE CRITERIA FOR LVH, CONSIDER NORMAL VARIANT [MEETS CRITERIA IN ONE OF: R(aVL), S(V1), R(V5), R(V5/V6)+S(V1)] NONSPECIFIC T-WAVE ABNORMALITY Compared to ECG 05/07/2021 04:24:23 Intraventricular conduction delay now present Sinus bradycardia no longer present T-wave abnormality still present Electronically Signed On 05-07-2021 16:10:57 BINDERY TECHNICIAN by Silke Franco M.D. [id number]
[2021-05-07] MEDS: regadenoson 0.4 Mg/5 ml Syringe IVP (11:19)
--- NOTE | 2021-05-07 11:56 | PC.CHAP ---
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 and tender visit [] Patient/Family/Request visit [] Outpatient visit [] Follow-up visit [] Physician referral [] Code/Alert [] Routine visit [] Staff referral [] Actively dying [] Patient sleeping [] Family support [] [] Out of room [] Palliative care [] [] Receiving care in room [] Pre-surgical visit [] Trauma [] Long length of stay [] ICU visit [] Other: Relational/Emotional Strength [] Patient feels connected with others/family/visitors/staff [] Distress [] Loneliness/isolation [] Abandonment Spirituality of Patient [] Person of Belén [] Attends Sikhism of their Belén [] Believes in Prayer [] Reads Bible or Pentecostalism materials [] There are Spiritual issues to be addressed Tech Ed Teacher Interventions [] Prayer [] Active listening [] Non-anxious presence [] Spiritual/emotional support [] Crisis/trauma care [] Spiritual counseling [] Bereavement support [] Provided bereavement packet [] Provided Bible/devotional materials [] Provided toy/stuffed animal, coloring book to patient or family member [] Provided Communion [] Anointing/[place] [] Salvation [] Completed spiritual assessment [] Other: Impact on Illness or Injury [] Angry [] Fearful [] Anxious [] Often cries [] Exhaustion [] Unable to work [] Unable to attend mormon [] Unable to walk/stand [] Unable to read [] Unable to drive [] Unable to eat/drink [] Unable to sleep [] Unable to be with family [] Patient intubated [] Other: Summary Time spent with patient 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 and tender 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 [] Patient/Family/Request visit [] Outpatient visit [] Follow-up visit [] Physician referral [] Code/Alert [x] Routine visit [] Staff referral [] Actively dying [] Patient sleeping [] Family support [] [] Out of room [] Palliative care [] [] Receiving care in room [] Pre-surgical visit [] Trauma [] Long length of stay [] ICU visit [] Other: Relational/Emotional Strength [x] Patient feels connected with others/family/visitors/staff [] Distress [] Loneliness/isolation [] Abandonment Spirituality of Patient [x] Person of Belén [] Attends Sikhism of their Belén [x] Believes in Prayer [] Reads Bible or Pentecostalism materials [] There are Spiritual issues to be addressed Tech Ed Teacher Interventions [x] Prayer [x] Active listening [] Non-anxious presence [] Spiritual/emotional support [] Crisis/trauma care [] Spiritual counseling [] Bereavement support [] Provided bereavement packet [] Provided Bible/devotional materials [] Provided toy/stuffed animal, coloring book to patient or family member [] Provided Communion [] Anointing/[place] [] Salvation [x] Completed spiritual assessment [] Other: Impact on Illness or Injury [] Angry [] Fearful [] Anxious [] Often cries [] Exhaustion [] Unable to work [] Unable to attend mormon [] Unable to walk/stand [] Unable to read [] Unable to drive [] Unable to eat/drink [] Unable to sleep [] Unable to be with family [] Patient intubated [] Other: Summary Time spent with patient 10 min
--- NOTE | 2021-05-07 13:39 | PM.PN ---
Subjective Subjective: Patient was seen this morning, she tells me that overnight she had a couple episodes of chest pain, one significant episode of chest pain this morning, requiring nitro patch, the pain has improved with nitro patch, currently chest pain-free, she is having her echocardiogram, Vitals/I&O/Wt Last Vital Signs Temp 98.6 F 05/07/21 07:12 Pulse 76 05/07/21 11:24 Resp 13 05/07/21 07:12 BP 152/90 05/07/21 11:24 Pulse Ox 95 05/07/21 07:12 05/06/21 05/07/21 05/07/21 22:59 06:59 14:59 Intake Total 860 / 860 Balance 860 / 860 Weight last 48 hrs Weight 93.44 kg Weight 93.44 kg Physical Exam Const: COMMON NORMALS: no acute distress and patient oriented x3 Resp: COMMON NORMALS: normal respiratory effort, No retractions, No use of accessory muscles and clear to auscultation bilaterally AUSCULTATION: clear to auscultation bilaterally Cardio: COMMON NORMALS: regular rate, regular rhythm, S1 normal heart sound present and S2 normal heart sound present RATE: regular rate RHYTHM: regular rhythm HEART SOUNDS: S1 normal heart sound present and S2 normal heart sound present GI: COMMON NORMALS: Normal to inspection, nondistended, normoactive bowel sounds present, Soft to palpation, non-tender and No hepatosplenomegaly present PALPATION: Yes Soft to palpation and Yes No hepatosplenomegaly present Extremity: COMMON NORMALS: no pedal edema Neuro: COMMON NORMALS: patient oriented x3 Psych: COMMON NORMALS: mental status grossly normal Data : 05/07/21 04:13 05/07/21 04:13 A&P Assessment and plan (1) Near syncope: Status: Acute (2) Chest pain: Status: Acute Plan Chest pain -EKG nonspecific ST-T wave changes, interventricular conduction delay, troponin 27 -Continues have chest pain complaints -Telemetry monitoring -Monitor for chest pain -Aspirin 81 mg -Continue statin -Coreg 3.125 twice daily -Cardiac echocardiogram pending -Cardiac stress test at noon -N.p.o. 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
[2021-05-07] MEDS: famotidine 20 mg Tablet PO ×2 (14:16→17:42)
[2021-05-07] MEDS: ferrous sulfate EC 325 mg Tablet PO (14:16)
[2021-05-07] MEDS: aspirin 81 mg EC Tablet PO (14:16)
[2021-05-07] MEDS: lisinopril 20 mg Tablet PO (14:17)
[2021-05-07] MEDS: citalopram 20 mg Tablet 40 MG PO (14:17)
[2021-05-07] MEDS: cloNIDine 0.1 mg Tablet PO (14:18)
[2021-05-07] MEDS: atorvastatin 40 mg Tablet 20 MG PO (14:18)
--- NOTE | 2021-05-07 14:58 | XRR_ITS ---
PROCEDURE INFORMATION: Exam: XR Abdomen Exam date and time: 05/07/2021 2:58 PM Age: 66 years old Clinical indication: Screening exam; Other: Swallowed foreign object; Patient HX: Swalowed possible foreign object; No abdominal complaints or pain TECHNIQUE: Imaging protocol: XR of the abdomen. Views: Frontal supine view of the abdomen. 1 View. COMPARISON: CR (CHEST, ) 05/06/2021 3:06 PM FINDINGS: Gastrointestinal tract: Moderate retained feces. Bones/joints: Levoscoliosis. XR/XR KUB portable [id number] IMPRESSION: 1. Moderate retained feces. 2. No obvious radiopaque foreign body.
--- NOTE | 2021-05-07 17:01 | PM.DCS ---
Discharge Providers Date of Admission: 05/06/21 16:27 Date of Discharge: May 07, 2021 Attending Provider at Admission: Spencer Napier MD Attending Provider at Discharge: Spencer Napier MD Primary Care Provider: IVY Serra Diagnoses at Discharge Discharge Diagnosis (1) Near syncope: Status: Acute (2) Chest pain: Status: Acute Reason for Visit Reason for Visit: CHEST PAIN Discharge Data Studies Completed and Pending Completed Studies During Hospitalization Category Date Time Status Sestamibi Stress Test Request Routine Exams 05/06/21 17:18 Completed XR KUB portable [id number] Routine Exams 05/07/21 14:58 Completed XR chest 1V portable [id number] Urgent Exams 05/06/21 14:52 Completed NM roby perf SPECT r/s* [id number] Routine Nuc Med 05/07/21 17:18 Completed CV carotid duplex BI* [id number] Routine Ultrasound 05/07/21 17:18 Completed Pending at discharge Category Date Time Status Complete Blood Count w/Auto AM LABS Lab 05/08/21 04:00 Ordered Complete Blood Count w/Auto AM LABS Lab 05/09/21 04:00 Ordered Comprehensive Metabolic Panel AM LABS Lab 05/08/21 04:00 Ordered Comprehensive Metabolic Panel AM LABS Lab 05/09/21 04:00 Ordered Magnesium AM LABS Lab 05/08/21 04:00 Ordered Magnesium AM LABS Lab 05/09/21 04:00 Ordered Phosphorus AM LABS Lab 05/08/21 04:00 Ordered Phosphorus AM LABS Lab 05/09/21 04:00 Ordered CV. echo complete* [id number] Routine Ultrasound 05/07/21 07:00 Taken Radiology Impressions Chest X-Ray 05/06/21 14:52 IMPRESSION: No acute findings. KUB X-Ray 05/07/21 14:58 IMPRESSION: 1. Moderate retained feces. 2. No obvious radiopaque foreign body. Laboratory Results WBC 6.1 10^3/uL (4.0-10.0) 05/07/21 04:13 RBC 3.70 10^6/uL (4.1-5.3) L 05/07/21 04:13 Hgb 11.7 g/dL (11.5-15.3) 05/07/21 04:13 Hct 35.7 % (37.0-47.0) L 05/07/21 04:13 MCV 96.5 fl (81-99) 05/07/21 04:13 MCH 31.6 pg (28.0-34.0) 05/07/21 04:13 MCHC 32.8 g/dL (30.0-36.0) 05/07/21 04:13 RDW 12.6 % (12.1-15.1) 05/07/21 04:13 Plt Count 254 10^3/cmm (130-400) 05/07/21 04:13 MPV 10.1 fL (7.4-10.4) 05/07/21 04:13 Neut % (Auto) 61.1 % 05/07/21 04:13 Lymph % (Auto) 27.1 % 05/07/21 04:13 Snyder % (Auto) 9.1 % 05/07/21 04:13 Eos % (Auto) 1.8 % 05/07/21 04:13 Baso % (Auto) 0.7 % 05/07/21 04:13 Neut # (Auto) 3.71 10^3/uL (1.8-7.7) 05/07/21 04:13 Lymph # (Auto) 1.6 10^3/uL (0.8-4.8) 05/07/21 04:13 Snyder # (Auto) 0.6 10^3/uL (0.2-0.9) 05/07/21 04:13 Eos # (Auto) 0.1 10^3/uL (0.0-0.8) 05/07/21 04:13 Baso # (Auto) 0.0 10^3/uL (0.0-0.1) 05/07/21 04:13 Nucleated RBC % (auto) 0 % 05/07/21 04:13 Nucleated RBCs # 0.0 /100WBC 05/07/21 04:13 Sodium 141 mmol/L (136-145) 05/07/21 04:13 Potassium 4.3 mmol/L (3.5-5.1) 05/07/21 04:13 Chloride 106 mmol/L (98-107) 05/07/21 04:13 Carbon Dioxide 26 mmol/L (22-29) 05/07/21 04:13 Anion Gap 13.3 (5-19) 05/07/21 04:13 BUN 11 mg/dL (8-23) 05/07/21 04:13 Creatinine 0.6 mg/dL (0.5-0.9) 05/07/21 04:13 GFR Calculation 100.3 mL/min (90-130) 05/07/21 04:13 Glucose 103 mg/dL (65-115) 05/07/21 04:13 Estimat Average Glucose 108 05/06/21 15:00 Hemoglobin A1c 5.4 % (4.0-6.0) 05/06/21 15:00 Calculated Osmolality 292 mOsm/kg (285-295) 05/07/21 04:13 Calcium 8.7 mg/dL (8.5-10.5) 05/07/21 04:13 Phosphorus 3.9 mg/dL (2.5-4.5) 05/07/21 04:13 Magnesium 1.9 mg/dL (1.7-2.3) 05/07/21 04:13 Total Bilirubin 0.2 mg/dL (0.15-1.2) 05/07/21 04:13 AST 16 U/L (0-32) 05/07/21 04:13 ALT 10 U/L (0-33) 05/07/21 04:13 Alkaline Phosphatase 70 IU/L (35-105) 05/07/21 04:13 Troponin T Baseline 27 ng/L (0-10) H 05/06/21 15:00 Troponin T 120 Minute 27.00 ng/L (0-10) H 05/06/21 17:18 Delta Troponin T 0 ABS# (0-10) 05/06/21 17:18 Troponin T Hi Sens 6Hr 27.78 ng/L (0-10) H 05/06/21 20:40 Troponin T Hi Sens 6Hr Delta 0.78 ng/L (0-12) 05/06/21 20:40 NT-Pro-B Natriuret Pep 85 pg/mL (0-125) 05/06/21 15:00 Total Protein 5.5 g/dL (6.6-8.7) L 05/07/21 04:13 Albumin 3.6 g/dL (3.5-5.2) 05/07/21 04:13 Globulin 1.9 g/dL (1.3-4.6) 05/07/21 04:13 Triglycerides 61 mg/dL (0-150) 05/07/21 04:13 Cholesterol 134 mg/dL (0-200) 05/07/21 04:13 LDL Cholesterol, Calc 71 mg/dL (50-129) 05/07/21 04:13 HDL Cholesterol 51 mg/dL (60-100) L 05/07/21 04:13 LDL/HDL Ratio 1.39 RATIO (0.00-3.22) 05/07/21 04:13 Cholesterol/HDL Ratio 2.63 mg/dL (0.0-4.40) 05/07/21 04:13 TSH 0.85 uIU/mL (0.27-4.20) 05/06/21 15:00 Urine Color Yellow (Yellow) 05/07/21 03:00 Urine Appearance Clear (CLEAR) 05/07/21 03:00 Urine pH 5 (5-7) 05/07/21 03:00 Ur Specific [place] 1.025 (1.005-1.030) 05/07/21 03:00 Urine Protein Trace (Negative) 05/07/21 03:00 Urine Glucose (UA) Norm (Normal) 05/07/21 03:00 Urine Ketones 1+ (Negative) H 05/07/21 03:00 Urine Blood 2+ (Negative) H 05/07/21 03:00 Urine Nitrate Negative (Negative) 05/07/21 03:00 Urine Bilirubin 1+ (Negative) H 05/07/21 03:00 Urine Urobilinogen 1 mg/dL (Negative) H 05/07/21 03:00 Ur Leukocyte Esterase Negative (Negative) 05/07/21 03:00 Urine RBC 5-10 /hpf (0-2) H 05/07/21 03:00 Urine WBC 0-4 /hpf (0-5) H 05/07/21 03:00 Ur Squamous Epith Cells 10-15 /hpf (0-5) H 05/07/21 03:00 Amorphous Sediment Not Reportable 05/07/21 03:00 Urine Bacteria 1+ /hpf (NONE) H 05/07/21 03:00 Urine Mucus 3+ /hpf 05/07/21 03:00 Vitals Last Vital Signs Temp 98.6 F 05/07/21 07:12 Pulse 76 05/07/21 11:24 Resp 13 05/07/21 07:12 BP 152/90 05/07/21 14:18 Pulse Ox 95 05/07/21 07:12 Discharge Plan Discharge Patient Disposition: Home Condition: Stable Prescriptions: No Action ferrous sulfate [iron] 325 mg (65 mg iron) tablet 325 mg PO DAILY 0RF clobazam [Onfi] 20 mg tablet 20 mg PO BID Qty: 60 5RF citalopram 40 mg tablet 40 mg PO DAILY 0RF lovastatin 40 mg tablet 40 mg PO DAILY 0RF benazepril 20 mg tablet 20 mg PO DAILY 0RF Referrals: Cherelle Quinn, RADIAL DRILL PRESS OPERATOR FOR PLASTIC [Primary Care Provider] - Patient Instructions: Opioid Safety Coding Level of Care Code Acute Chg FW DC note Diagnoses Near syncope R55 Chest pain R07.9
--- NOTE | 2021-05-07 17:02 | P.CONIM_ITS ---
Providers/Reason For Consult Consulting Physician/Specialty*: Jose Luis Mcdonald MD/ Cardiology Reason for Consult*: Chest pain Requesting Physician: Dr Napier Attending Physician: Spencer Napier MD Primary Care Provider: IVY Serra History of Present Illness History of Present Illness Kelly Kwong is a 66 year old female with past medical history of hypertension presented to the hospital palpitations and chest discomfort. According to patient she went to scientologist yesterday and after getting home she felt lightheaded and dizzy. With that she also felt her shortness of breath and anterior chest chest discomfort that was more like palpitations that she would hear in her ears as well. She got worried and called her brother who suggested to come to the hospital. Troponins in 20s and have not trended up. EKG does not show acute ST-T wave changes. Echocardiogram performed today shows normal systolic function with grade 1 diastolic dysfunction. No significant valvular abnormalities. Lexiscan was also obtained that does not show ischemia.TID ratio is elevated. Review of Systems Narrative: GENERAL: Patient is alert, awake and oriented x3. [] NECK: No jugular vein distension. [] HEENT: No cyanosis. No icterus. No pallor. [] HEART: Regular S1 and S2. No murmur, rub or gallop. [] LUNGS: Clear to auscultate bilaterally. [] ABDOMEN: Soft, nontender and nondistended. Positive bowel sounds. No guarding, rebound or tenderness. [] CENTRAL NERVOUS SYSTEM: Grossly nonfocal. [] EXTREMITIES: Lower extremities with 1+ edema bilaterally. Pulses palpable in the lower extremities, both dorsalis pedis and posterior tibial. [] Medications/Allergies Home Medications Medication Instructions Recorded Confirmed Last Taken Type ferrous sulfate 325 mg (65 mg 325 mg PO DAILY tab 03/15/19 05/06/21 05/06/21 History iron) tablet (iron) clobazam 20 mg tablet (Onfi) 20 mg PO BID #60 tab 04/02/21 05/06/21 05/06/21 Rx benazepril 20 mg tablet 20 mg PO DAILY 05/06/21 05/06/21 05/06/21 History citalopram 40 mg tablet 40 mg PO DAILY 05/06/21 05/06/21 05/06/21 History lovastatin 40 mg tablet 40 mg PO DAILY 05/06/21 05/06/21 05/05/21 History Allergies Allergy/AdvReac Type Severity Reaction Status Date / Time carbamazepine Allergy itching Verified 03/15/21 09:52 [From Carbatrol] Current Medications Generic Name Dose Route Start Last Admin Trade Name Chadwick PRN Reason Stop Dose Admin Aspirin 81 mg 05/07/21 09:00 05/07/21 14:16 Aspirin 81 Mg Ec Tablet PO 81 mg DAILY DARLEEN Administration Atorvastatin Calcium 20 mg 05/07/21 09:00 05/07/21 14:18 Atorvastatin 40 Mg Tablet PO 20 mg DAILY DARLEEN Administration Carvedilol 3.125 mg 05/06/21 18:00 05/07/21 14:18 Carvedilol 3.125 Mg Tablet PO Not Given BID DARLEEN Citalopram Hydrobromide 40 mg 05/07/21 09:00 05/07/21 14:17 Citalopram 20 Mg Tablet PO 40 mg DAILY DARLEEN Administration Clonidine HCl 0.1 mg 05/07/21 08:00 05/07/21 14:18 Clonidine 0.1 Mg Tablet PO 0.1 mg Q12H DARLEEN Administration Enoxaparin Sodium 40 mg 05/06/21 17:18 05/06/21 17:45 Enoxaparin 40 Mg/0.4 Ml Syringe SUBCUT 40 mg Q24H DARLEEN Administration Famotidine 20 mg 05/06/21 18:00 05/07/21 14:16 Famotidine 20 Mg Tablet PO 20 mg BID DARLEEN Administration Ferrous Sulfate 325 mg 05/07/21 09:00 05/07/21 14:16 Ferrous Sulfate Ec 325 Mg Tablet PO 325 mg DAILY DARLEEN Administration Lisinopril 20 mg 05/07/21 09:00 05/07/21 14:17 Lisinopril 20 Mg Tablet PO 20 mg DAILY DARLEEN Administration Nitroglycerin 1 inch 05/07/21 06:45 05/07/21 14:18 Nitroglycerin 1 Gm/Inch Oint Pkt TOPICAL 1 inch Q6H DARLEEN Administration Non-Formulary Medication 20 mg 05/06/21 18:00 05/07/21 14:18 Clobazam [Onfi] PO Not Given BID DARLEEN PFSH Acute PFSH: Medical History (Updated 05/07/21 @ 17:19 by Jose Luis Mcdonald M.D) Hyperlipidemia Hypertension Surgical History History of open reduction and internal fixation (ORIF) procedure Family History Other CAD (coronary artery disease) Social History Smoking and tobacco status: never smoked Alcohol intake: never History of recent travel: No Vitals/I&O/Wt Last Vital Signs Temp 98.6 F 05/07/21 07:12 Pulse 76 05/07/21 11:24 Resp 13 05/07/21 07:12 BP 152/90 05/07/21 14:18 Pulse Ox 95 05/07/21 07:12 Weight last 48 hrs Weight 206 lb Weight 206 lb Physical Exam Narrative: GENERAL: Patient is alert, awake and oriented x3. [] NECK: No jugular vein distension. [] HEENT: No cyanosis. No icterus. No pallor. [] HEART: Regular S1 and S2. No murmur, rub or gallop. [] LUNGS: Clear to auscultate bilaterally. [] ABDOMEN: Soft, nontender and nondistended. Positive bowel sounds. No guarding, rebound or tenderness. [] CENTRAL NERVOUS SYSTEM: Grossly nonfocal. [] EXTREMITIES: Lower extremities with 1+ edema bilaterally. Pulses palpable in the lower extremities, both dorsalis pedis and posterior tibial. [] Data : 05/07/21 04:13 05/07/21 04:13 A&P Assessment and plan (1) Chest pain: Status: Acute (2) Hypertension: Status: Acute Qualifiers: Hypertension type: essential hypertension Qualified Code(s): I10 - Essential (primary) hypertension (3) Hyperlipidemia: Status: Acute Plan Patient has presented with chest discomfort episodes that are atypical and more consistent with palpitations. Her stress test does not reveal significant ischemia. Echo shows normal LV systolic function. Troponins havent trended up and no significant EKG changes. At this time we will recommend managing patient medically. Aggressive risk factor control. We will recommend outpatient event monitor Patient can follow-up with us in cardiology office. Thank you for involving us with care of this patient. Please call with questions. Coding Level of Care Code Acute Aircraft Engineer for Chg Fwd Diagnoses Chest pain R07.9 Hypertension I10 Hypertension type: essential hypertension Hyperlipidemia E78.5
--- NOTE | 2021-05-07 17:08 | PM.DCS ---
Discharge Providers Date of Admission: 05/06/21 16:27 Date of Discharge: May 07, 2021 Attending Provider at Admission: Spencer Napier MD Attending Provider at Discharge: Spencer Napier MD Primary Care Provider: IVY Serra Diagnoses at Discharge Discharge Diagnosis (1) Near syncope: Status: Acute (2) Chest pain: Status: Acute Reason for Visit Reason for Visit: CHEST PAIN Hospital Course Hospital Course Kelly Kwong is a 66 year old female with a past medical history of hypertension, lumbar disc disease, seizures, who presents to [facility] due to chest pain Patient was admitted to [facility] for chest pain, no significant delta troponin, EKG no acute ST-T wave changes, cardiac stress testing was performed: ?1. Normal myocardial perfusion imaging with no evidence of ischemia ?2. LV systolic function is normal ?3. Elevated TID ratio may indicate subendocardial ischemia -Given her continued complaints of chest pain, cardiology was consulted, recommended medical management with a close follow-up with cardiology as outpatient -Patient will be discharged on aspirin, statin, nitro as needed for chest pain, instruction to come back to the emergency room if she were to have recurrent chest pain -Follow-up with cardiology as outpatient For her syncopal symptoms, carotid artery ultrasound no hemodynamically significant carotid artery stenosis, no strokelike symptoms, follow-up with Dr. Bustos as outpatient During her hospitalization, patient had a vomiting episode that contained what it looks like as pill packets, she denies any suicidal ideation, no homicidal ideation, denies any unintentional or an intentional ingestion, they seem like pill packets have been cut up, she only takes medications from a bottle. She does tell me that she ate at her synagogue function and and after that she was not feeling well and started to have lightheadedness and chest pain. She did well as inpatient, no recurrent chest pain symptoms, no recurrent vomiting, advised to continue to monitor. KUB did not show any radiopaque objects. Had good stooling. Advised to continue to monitor Physical Exam Const: COMMON NORMALS: no acute distress and patient oriented x3 Resp: COMMON NORMALS: normal respiratory effort, No retractions, No use of accessory muscles and clear to auscultation bilaterally AUSCULTATION: clear to auscultation bilaterally GI: COMMON NORMALS: Normal to inspection, nondistended, normoactive bowel sounds present, Soft to palpation, non-tender, No hepatosplenomegaly present, no masses and no bruits PALPATION: Yes Soft to palpation and Yes No hepatosplenomegaly present Extremity: COMMON NORMALS: no pedal edema Neuro: COMMON NORMALS: patient oriented x3 Psych: COMMON NORMALS: mental status grossly normal Discharge Data Studies Completed and Pending Completed Studies During Hospitalization Category Date Time Status Sestamibi Stress Test Request Routine Exams 05/06/21 17:18 Completed XR KUB portable [id number] Routine Exams 05/07/21 14:58 Completed XR chest 1V portable [id number] Urgent Exams 05/06/21 14:52 Completed NM roby perf SPECT r/s* [id number] Routine Nuc Med 05/07/21 17:18 Completed CV carotid duplex BI* [id number] Routine Ultrasound 05/07/21 17:18 Completed Pending at discharge Category Date Time Status Complete Blood Count w/Auto AM LABS Lab 05/08/21 04:00 Ordered Complete Blood Count w/Auto AM LABS Lab 05/09/21 04:00 Ordered Comprehensive Metabolic Panel AM LABS Lab 05/08/21 04:00 Ordered Comprehensive Metabolic Panel AM LABS Lab 05/09/21 04:00 Ordered Magnesium AM LABS Lab 05/08/21 04:00 Ordered Magnesium AM LABS Lab 05/09/21 04:00 Ordered Phosphorus AM LABS Lab 05/08/21 04:00 Ordered Phosphorus AM LABS Lab 05/09/21 04:00 Ordered CV. echo complete* [id number] Routine Ultrasound 05/07/21 07:00 Taken Radiology Impressions Chest X-Ray 05/06/21 14:52 IMPRESSION: No acute findings. KUB X-Ray 05/07/21 14:58 IMPRESSION: 1. Moderate retained feces. 2. No obvious radiopaque foreign body. Laboratory Results WBC 6.1 10^3/uL (4.0-10.0) 05/07/21 04:13 RBC 3.70 10^6/uL (4.1-5.3) L 05/07/21 04:13 Hgb 11.7 g/dL (11.5-15.3) 05/07/21 04:13 Hct 35.7 % (37.0-47.0) L 05/07/21 04:13 MCV 96.5 fl (81-99) 05/07/21 04:13 MCH 31.6 pg (28.0-34.0) 05/07/21 04:13 MCHC 32.8 g/dL (30.0-36.0) 05/07/21 04:13 RDW 12.6 % (12.1-15.1) 05/07/21 04:13 Plt Count 254 10^3/cmm (130-400) 05/07/21 04:13 MPV 10.1 fL (7.4-10.4) 05/07/21 04:13 Neut % (Auto) 61.1 % 05/07/21 04:13 Lymph % (Auto) 27.1 % 05/07/21 04:13 [place] % (Auto) 9.1 % 05/07/21 04:13 Eos % (Auto) 1.8 % 05/07/21 04:13 Baso % (Auto) 0.7 % 05/07/21 04:13 Neut # (Auto) 3.71 10^3/uL (1.8-7.7) 05/07/21 04:13 Lymph # (Auto) 1.6 10^3/uL (0.8-4.8) 05/07/21 04:13 [place] # (Auto) 0.6 10^3/uL (0.2-0.9) 05/07/21 04:13 Eos # (Auto) 0.1 10^3/uL (0.0-0.8) 05/07/21 04:13 Baso # (Auto) 0.0 10^3/uL (0.0-0.1) 05/07/21 04:13 Nucleated RBC % (auto) 0 % 05/07/21 04:13 Nucleated RBCs # 0.0 /100WBC 05/07/21 04:13 Sodium 141 mmol/L (136-145) 05/07/21 04:13 Potassium 4.3 mmol/L (3.5-5.1) 05/07/21 04:13 Chloride 106 mmol/L (98-107) 05/07/21 04:13 Carbon Dioxide 26 mmol/L (22-29) 05/07/21 04:13 Anion Gap 13.3 (5-19) 05/07/21 04:13 BUN 11 mg/dL (8-23) 05/07/21 04:13 Creatinine 0.6 mg/dL (0.5-0.9) 05/07/21 04:13 GFR Calculation 100.3 mL/min (90-130) 05/07/21 04:13 Glucose 103 mg/dL (65-115) 05/07/21 04:13 Estimat Average Glucose 108 05/06/21 15:00 Hemoglobin A1c 5.4 % (4.0-6.0) 05/06/21 15:00 Calculated Osmolality 292 mOsm/kg (285-295) 05/07/21 04:13 Calcium 8.7 mg/dL (8.5-10.5) 05/07/21 04:13 Phosphorus 3.9 mg/dL (2.5-4.5) 05/07/21 04:13 Magnesium 1.9 mg/dL (1.7-2.3) 05/07/21 04:13 Total Bilirubin 0.2 mg/dL (0.15-1.2) 05/07/21 04:13 AST 16 U/L (0-32) 05/07/21 04:13 ALT 10 U/L (0-33) 05/07/21 04:13 Alkaline Phosphatase 70 IU/L (35-105) 05/07/21 04:13 Troponin T Baseline 27 ng/L (0-10) H 05/06/21 15:00 Troponin T 120 Minute 27.00 ng/L (0-10) H 05/06/21 17:18 Delta Troponin T 0 ABS# (0-10) 05/06/21 17:18 Troponin T Hi Sens 6Hr 27.78 ng/L (0-10) H 05/06/21 20:40 Troponin T Hi Sens 6Hr Delta 0.78 ng/L (0-12) 05/06/21 20:40 NT-Pro-B Natriuret Pep 85 pg/mL (0-125) 05/06/21 15:00 Total Protein 5.5 g/dL (6.6-8.7) L 05/07/21 04:13 Albumin 3.6 g/dL (3.5-5.2) 05/07/21 04:13 Globulin 1.9 g/dL (1.3-4.6) 05/07/21 04:13 Triglycerides 61 mg/dL (0-150) 05/07/21 04:13 Cholesterol 134 mg/dL (0-200) 05/07/21 04:13 LDL Cholesterol, Calc 71 mg/dL (50-129) 05/07/21 04:13 HDL Cholesterol 51 mg/dL (60-100) L 05/07/21 04:13 LDL/HDL Ratio 1.39 RATIO (0.00-3.22) 05/07/21 04:13 Cholesterol/HDL Ratio 2.63 mg/dL (0.0-4.40) 05/07/21 04:13 TSH 0.85 uIU/mL (0.27-4.20) 05/06/21 15:00 Urine Color Yellow (Yellow) 05/07/21 03:00 Urine Appearance Clear (CLEAR) 05/07/21 03:00 Urine pH 5 (5-7) 05/07/21 03:00 Ur Specific [place] 1.025 (1.005-1.030) 05/07/21 03:00 Urine Protein Trace (Negative) 05/07/21 03:00 Urine Glucose (UA) Norm (Normal) 05/07/21 03:00 Urine Ketones 1+ (Negative) H 05/07/21 03:00 Urine Blood 2+ (Negative) H 05/07/21 03:00 Urine Nitrate Negative (Negative) 05/07/21 03:00 Urine Bilirubin 1+ (Negative) H 05/07/21 03:00 Urine Urobilinogen 1 mg/dL (Negative) H 05/07/21 03:00 Ur Leukocyte Esterase Negative (Negative) 05/07/21 03:00 Urine RBC 5-10 /hpf (0-2) H 05/07/21 03:00 Urine WBC 0-4 /hpf (0-5) H 05/07/21 03:00 Ur Squamous Epith Cells 10-15 /hpf (0-5) H 05/07/21 03:00 Amorphous Sediment Not Reportable 05/07/21 03:00 Urine Bacteria 1+ /hpf (NONE) H 05/07/21 03:00 Urine Mucus 3+ /hpf 05/07/21 03:00 Vitals Last Vital Signs Temp 98.6 F 05/07/21 07:12 Pulse 76 05/07/21 11:24 Resp 13 05/07/21 07:12 BP 152/90 03/07/22 14:18 Pulse Ox 95 05/07/21 07:12 Discharge Plan Discharge Patient Disposition: Home Condition: Stable Prescriptions: New carvedilol 3.125 mg Tablet 3.125 mg PO BID 30 Days Qty: 60 0RF nitroglycerin 0.4 mg Tablet, Sublingual 0.4 mg sublingual Q5M PRN (Reason: Chest Pain) 30 Days Qty: 30 0RF aspirin 81 mg Tablet,Delayed Release (Dr/Ec) 81 mg PO DAILY 30 Days Qty: 30 0RF clonidine HCl 0.1 mg Tablet 0.1 mg PO Q12H 30 Days Qty: 60 0RF Continued ferrous sulfate [iron] 325 mg (65 mg iron) tablet 325 mg PO DAILY 0RF clobazam [Onfi] 20 mg tablet 20 mg PO BID Qty: 60 5RF citalopram 40 mg tablet 40 mg PO DAILY 0RF lovastatin 40 mg tablet 40 mg PO DAILY 0RF benazepril 20 mg tablet 20 mg PO DAILY 0RF Discharge Orders: Discharge Order (Routine); Ordered 05/07/21 Ordered By: Spencer Napier Referrals: Cherelle Quinn FNP [Primary Care Provider] - Patient Instructions: Opioid Safety Discharge Attestations Time Spent in Discharge Care*: less than 30 min Quality Metrics Clinical Quality Measures [ No reported AMI, CVA or VTE this stay] Coding Level of Care Code Acute Chg FW DC note Diagnoses Near syncope R55 Chest pain R07.9
--- NOTE | 2021-05-07 17:18 | USCV_ITS ---
KwongKelly Age: 66 Gender: F : 1955 Exam Date: 05/07/2021 09:15 Ordering Phys: Spencer Napier MD Technologist: Exam Location: [facility] [place]_ Indication: syncope Risk Factors: Previous Vascular Surgery: Right Brachial BP: / Left Brachial BP: / Right Left Velocity (cm/s) Spectral Plaque Velocity (cm/s) Spectral Plaque Syst/Diast Broadening Syst/Diast Broadening 79.40/ 14.30 Prox CCA 93.10 / 27.80 84.60/ 17.10 Mid CCA 96.30 / 19.30 92.10/ 31.00 Distal CCA 79.20 / 23.50 46.80/ 12.10 Prox ICA 76.00 / 23.50 119.90/45.00 Mid ICA 64.20 / 23.50 100.60/39.60 Distal ICA 71.90 / 25.50 106.50 ECA 95.30 1.30 ICA/CCA 0.79 Antegrade Vertebral Antegrade 58.90/ 16.10 cm/s 128.0/ 32.00 cm/s 0 Tri Subclavian Tri 50.30 210.0 0 FINDINGS Comparison: none available. No significant elevation of systolic or diastolic velocities. Mild diffuse bilateral scattered calcified plaque and intimal thickening throughout the common carotid arteries and extending through the bifurcation. Antegrade vertebral arteries. CONCLUSIONS Bilateral ICA stenosis less than 50%. Mild carotid atherosclerosis. Dr. Jessica Emery DO (Electronically Signed) Final Date: 07 May 2021 16:09 S
--- NOTE | 2021-05-07 17:18 | NMCV_ITS ---
NM roby perf SPECT r/s* [id number] Kelly Kwong Age: 66 Gender: F : 1955 Exam Date: 05/07/2021 17:18 Ordering Phys: Spencer Napier MD Technologist: JAMAL Pennington Exam Location: [facility] Indications: CHEST PAIN STRESS TEST Please see separate stress test report in [facility] for full findings IMAGE PROTOCOL Rest/Stress 1 Lexiscan Day Radiopharmaceutical Dose (mCi) Administration Site Administered by Rest: Tc-99m 10.7 IV JAMAL Cali Sestamibi Stress:Tc-99m 32.7 IV JAMAL Cali Sestamibi Rest: 07-May-2021 60 Discovery 630 Stress: 07-May-2021 30 Discovery 630 0.4mg Lexiscan. Images obtained in supine and prone position. SPECT RESULTS Technical Quality: Excellent Raw Data Analysis: Breast attenuation Image Corrections: No attenuation or motion correction applied Summed Stress Score: 0 Summed Rest Score: 0 Summed Difference Score: 0 PERFUSION FINDINGS SPECT images demonstrate homogeneous tracer distribution throughout the myocardium. FUNCTIONAL RESULTS (calculated via Gated SPECT) Stress Image LV EF (%): 68 Stress EDV (mL):72 TID: 1.42 Stress ESV (mL):23 FUNCTIONAL FINDINGS: There is normal left ventricular systolic function. IMPRESSIONS 1. Normal myocardial perfusion imaging with no evidence of ischemia 2. LV systolic function is normal 3. Elevated TID ratio may indicate subendocardial ischemia Jose Luis Mcdonald MD (Electronically Signed) Final Date: 07 May 2021 12:53 S
[2021-05-07] MEDS: carvedilol 3.125 mg Tablet PO (17:42)
== END 2021-05-07 17:45 | disposition home or self-care (01) ==
LOC: ER 15:25 → MEDSURG 16:43
PROVIDERS: Admitting Provider Family Medicine; Emergency Provider Emergency Medicine; PCP Registered Nurse; Visit Provider Family Medicine
DX: R55 Syncope and collapse (principal); R07.9 Chest pain, unspecified; I65.23 Occlusion and stenosis of bilateral carotid arteries; I10 Essential (primary) hypertension; Z82.49 Family history of ischemic heart disease and other diseases of the circulatory system; E78.5 Hyperlipidemia, unspecified
CPT/HCPCS: 36415; 71045; 74018; 78452; 80048; 80053; 80061; 81001; 83036; 83735; 83880; 84100; 84443; 84484; 85025; 93005; 93017; 93306; 93880; 96372; 96374; 99285; A9500; G0378; J1650; J2270; J2785; J7040

== ENCOUNTER 2021-05-13 11:21 | Emergency (ER) | payer MEDICARE, MEDICAID, SELFPAY ==
[2021-05-13 11:21] VITALS: BP 169/93; PULSE 70; RESP 20; TEMP 36.9; O2SAT 96; BMI 37.6
--- NOTE | 2021-05-13 11:22 | ECG_ITS ---
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 Measurements Intervals [place] Rate: 58 P: 25 OR: 175 QRS: -11 QRSD: 88 T: 17 QT: 384 QTc: 378 Interpretive Statements SINUS BRADYCARDIA POSSIBLE ANTERIOR MYOCARDIAL INFARCTION , PROBABLY OLD [30 ms Q WAVE IN V3/V4, OR R < 0.2 mV IN V4] Compared to ECG 05/13/2021 11:35:35 Sinus rhythm no longer present Sinus arrhythmia no longer present Myocardial infarct finding still present Electronically Signed On 05-13-2021 15:38:30 CDT by Jose Luis Mcdonald M.D. [id number]
--- NOTE | 2021-05-13 11:22 | XRR_ITS ---
PROCEDURE INFORMATION: Exam: XR Chest Exam date and time: 05/13/2021 11:22 AM Age: 66 years old Clinical indication: Pain; Chest pressure; Additional info: Cp TECHNIQUE: Imaging protocol: XR of the chest. Views: 1 view. COMPARISON: CR (CHEST, ) 05/06/2021 3:06 PM FINDINGS: Lungs: Low lung volumes seen. The lungs are otherwise clear. No consolidation. Pleural spaces: Unremarkable. No pleural effusion. No pneumothorax. Heart/Mediastinum: Unremarkable. No cardiomegaly. Bones/joints: There is dorsolumbar dextroscoliosis. XR/XR chest 1V portable [id number] IMPRESSION: 1. No acute findings. 2. Dorsolumbar dextroscoliosis 3. Low lung volumes
--- NOTE | 2021-05-13 11:24 | ED_ITS ---
HPI - Chest Pain General: Chief Complaint: Chest Pain Stated Complaint: CHEST DISCOMFORT Time Seen by Provider: 05/13/21 11:22 Source: patient Mode of arrival: ambulatory Limitations: no limitations History of Present Illness: 66-year-old female who states she has been having some intermittent chest pains. She is actually admitted here a week ago had a perfusion scan that was normal has not a follow-up with cardiology next week but states that this morning at 4 AM started having some chest pain again. States is a pressure type pain she currently completely pain-free denies any shortness of breath denies any radiation of her pain. Denies any worsening improving factors. Associated symptoms: Deny abdominal pain, dyspnea, fever(s), nausea or vomiting Review of Systems Const: Denies: fever(s), chills, body aches or change in appetite Eyes: Denies: blurry vision or eye discomfort ENMT: Denies: throat pain or dental pain Card: Reports: chest pain Resp: Denies: dyspnea GI: Denies: abdominal pain, nausea, vomiting or diarrhea : Denies: dysuria Musc: Denies: neck pain or back pain Skin/Breast: Denies: rash Neuro: Denies: headache(s) Psych: Denies: depression [place]ota/Lymph: Denies: easy bruising All/Imm: Denies: urticaria PFSH ED PFSH: Medical History Hyperlipidemia Hypertension Surgical History History of open reduction and internal fixation (ORIF) procedure Family History Other CAD (coronary artery disease) Social History Smoking and tobacco status: never smoked Alcohol intake: never History of recent travel: No Physical Exam Const: COMMON NORMALS: no acute distress, patient oriented x3 and healthy appearing HENMT: COMMON NORMALS: normocephalic and atraumatic HEAD & SCALP: normocephalic and atraumatic Eye: COMMON NORMALS: Equal, round and reactive pupils present and EOMs intact bilaterally PUPIL: Yes Equal, round and reactive pupils present Neck/C-Spine: COMMON NORMALS: full ROM and supple Chest: COMMONS NORMALS: normal inspection of the chest and normal palpation of entire chest wall Resp: COMMON NORMALS: normal respiratory effort, No retractions, No use of accessory muscles and clear to auscultation bilaterally AUSCULTATION: clear to auscultation bilaterally Cardio: COMMON NORMALS: regular rate, regular rhythm and No murmurs present (C ardio) RATE: regular rate RHYTHM: regular rhythm GI: COMMON NORMALS: Normal to inspection, nondistended, normoactive bowel sounds present, Soft to palpation, non-tender and no masses PALPATION: Yes Soft to palpation Extremity: COMMON NORMALS: normal to inspection and full ROM Neuro: COMMON NORMALS: patient oriented x3, moves all extremities and no focal motor deficits Psych: COMMON NORMALS: mental status grossly normal, Normal thought process present and cooperative THOUGHT PROCESS: Normal thought process present Skin: COMMON NORMALS: no rashes or lesions noted and no wounds GENERAL SKIN EXAM: no rashes or lesions noted Course Vital Signs: Vital signs: Vital Signs Temperature 98.4 F 05/13/21 11:21 Pulse Rate 70 05/13/21 11:21 Respiratory Rate 20 H 05/13/21 11:21 Blood Pressure 169/93 05/13/21 11:21 Pulse Oximetry 96 05/13/21 11:21 MDM - Chest Pain Medical Decision Making Patient presents here with chest pain atypical in nature patient had a stress test last week showed no acute abnormalities her troponins here are negative she has an appoint with cardiology next week she has no signs of dissection or pulmonary embolism she is stable for discharge and is to follow-up with cardiology as scheduled next week she understands agrees to plan. Lab Data : 05/13/21 11:30 05/13/21 11:30 Radiology Impressions Chest X-Ray 05/13/21 11:22 IMPRESSION: 1. No acute findings. 2. Dorsolumbar dextroscoliosis 3. Low lung volumes Laboratory Results WBC 6.7 10^3/uL (4.0-10.0) 05/13/21 11:30 RBC 4.18 10^6/uL (4.1-5.3) 05/13/21 11:30 Hgb 13.1 g/dL (11.5-15.3) 05/13/21 11:30 Hct 39.4 % (37.0-47.0) 05/13/21 11: MCV 94.3 fl (81-99) 05/13/21 11: MCH 31.3 pg (28.0-34.0) 05/13/21 11: MCHC 33.2 g/dL (30.0-36.0) 05/13/21 11: RDW 12.5 % (12.1-15.1) 05/13/21 11: Plt Count 299 10^3/cmm (130-400) 05/13/21 11: MPV 10.1 fL (7.4-10.4) 05/13/21 11: Neut % (Auto) 73.6 % 05/13/21 11: Lymph % (Auto) 17.3 % 05/13/21 11:30 [place] % (Auto) 6.8 % 05/13/21 11: Eos % (Auto) 1.1 % 05/13/21 11: Baso % (Auto) 0.9 % 05/13/21 11: Neut # (Auto) 4.91 10^3/uL (1.8-7.7) 05/13/21 11: Lymph # (Auto) 1.2 10^3/uL (0.8-4.8) 05/13/21 11: [place] # (Auto) 0.5 10^3/uL (0.2-0.9) 05/13/21 11:30 Eos # (Auto) 0.1 10^3/uL (0.0-0.8) 05/13/21 11: Baso # (Auto) 0.1 10^3/uL (0.0-0.1) 05/13/21 11: Nucleated RBC % (auto) 0 % 05/13/21 11: Nucleated RBCs # 0.0 /100WBC 05/13/21 11: PT 13.30 SECONDS (12.1-14.9) 05/13/21 11:30 INR 0.98 (0.8-1.2) 05/13/21 11:30 Sodium 135 mmol/L (136-145) L 05/13/21 11:30 Potassium 3.5 mmol/L (3.5-5.1) 05/13/21 11:30 Chloride 99 mmol/L (98-107) 05/13/21 11:30 Carbon Dioxide 28 mmol/L (22-29) 05/13/21 11:30 Anion Gap 11.5 (5-19) 05/13/21 11:30 BUN 8 mg/dL (8-23) 05/13/21 11:30 Creatinine 0.7 mg/dL (0.5-0.9) 05/13/21 11:30 GFR Calculation 84.0 mL/min (90-130) L 05/13/21 11:30 Glucose 107 mg/dL (65-115) 05/13/21 11:30 Calculated Osmolality 279 mOsm/kg (285-295) L 05/13/21 11:30 Calcium 9.0 mg/dL (8.5-10.5) 05/13/21 11:30 Total Bilirubin 0.3 mg/dL (0.15-1.2) 05/13/21 11:30 AST 16 U/L (0-32) 05/13/21 11:30 ALT 14 U/L (0-33) 05/13/21 11:30 Alkaline Phosphatase 78 IU/L (35-105) 05/13/21 11:30 Troponin T Baseline 27 ng/L (0-10) H 05/13/21 11:30 Troponin T 120 Minute 25.76 ng/L (0-10) H 05/13/21 13:27 Delta Troponin T -1.24 ABS# (0-10) L 05/13/21 13: Total Protein 6.1 g/dL (6.6-8.7) L 05/13/21 11:30 Albumin 3.8 g/dL (3.5-5.2) 05/13/21 11:30 Globulin 2.3 g/dL (1.3-4.6) 05/13/21 11:30 Discharge Plan Discharge Patient Disposition: Home Clinical Impression: Chest pain Condition: Stable Prescriptions: No Action ferrous sulfate [iron] 325 mg (65 mg iron) tablet 325 mg PO DAILY 0RF clobazam [Onfi] 20 mg tablet 20 mg PO BID Qty: 60 5RF citalopram 40 mg tablet 40 mg PO DAILY 0RF lovastatin 40 mg tablet 40 mg PO BEDTIME 0RF benazepril 20 mg tablet 20 mg PO DAILY 0RF clonidine HCl 0.1 mg Tablet 0.1 mg PO Q12H 30 Days Qty: 60 0RF aspirin 81 mg Tablet,Delayed Release (Dr/Ec) 81 mg PO DAILY 30 Days Qty: 30 0RF carvedilol 3.125 mg Tablet 3.125 mg PO BID 30 Days Qty: 60 0RF nitroglycerin 0.4 mg Tablet, Sublingual 0.4 mg sublingual Q5M PRN (Reason: Chest Pain) 30 Days Qty: 30 0RF Discharge Orders: Discharge ED (Routine); Ordered 05/13/21 Ordered By: Suraj Huynh Referrals: Cherelle Quinn, BONE GLUE MAKER [Primary Care Provider] - 1-3 days Discharge Diet: Advance as tolerated Discharge Activity: Resume usual activity Patient Instructions: Chest Pain (ED) Coding Level of Care Code ED Swimming Pool Maintenance Supervisor for Shayy Fwd Exam Comprehensive
[2021-05-13 11:48] LABS: Basophils # 0.1 10^3/uL (0.0-0.1); Basophils % 0.9 %; Eosinophils # 0.1 10^3/uL (0.0-0.8); Eosinophils % 1.1 %; Hematocrit 39.4 % (37.0-47.0); Hemoglobin 13.1 g/dL (11.5-15.3); Lymphocytes # 1.2 10^3/uL (0.8-4.8); Lymphocytes % 17.3 %; Mean Corpuscular HGB Conc 33.2 g/dL (30.0-36.0); Mean Corpuscular Hemoglobin 31.3 pg (28.0-34.0); Mean Corpuscular Volume 94.3 fl (81-99); Mean Platelet Volume 10.1 fL (7.4-10.4); Monocytes # 0.5 10^3/uL (0.2-0.9); Monocytes % 6.8 %; Neutrophils # 4.91 10^3/uL (1.8-7.7); Neutrophils % 73.6 %; Nucleated Red Blood Cells % 0 %; Platelet Count 299 10^3/cmm (130-400); Red Blood Count 4.18 10^6/uL (4.1-5.3); Red Cell Distribution Width 12.5 % (12.1-15.1); White Blood Count 6.7 10^3/uL (4.0-10.0)
[2021-05-13 12:08] LABS: Alanine Aminotransferase 14 U/L (0-33); Albumin Level 3.8 g/dL (3.5-5.2); Alkaline Phosphatase 78 IU/L (35-105); Anion Gap 11.5 (5-19); Aspartate Amino Transferase 16 U/L (0-32); Blood Urea Nitrogen 8 mg/dL (8-23); Carbon Dioxide 28 mmol/L (22-29); Chloride 99 mmol/L (98-107); Globulin 2.3 g/dL (1.3-4.6); Glucose 107 mg/dL (65-115); Osmolality Calculated 279 mOsm/kg (285-295); Potassium 3.5 mmol/L (3.5-5.1); Sodium 135 mmol/L (136-145); Total Bilirubin 0.3 mg/dL (0.15-1.2); Total Protein 6.1 g/dL (6.6-8.7)
[2021-05-13 12:09] LABS: Troponin(5th) Baseline 27 ng/L (0-10)
[2021-05-13 12:10] LABS: INR 0.98 (0.8-1.2)
[2021-05-13 13:56] LABS: Troponin 5 2HR 25.76 ng/L (0-10)
[2021-05-13 13:57] LABS: Troponin 5 2HR Delta -1.24 ABS# (0-10)
[2021-05-13 14:16] VITALS: BP 139/69; PULSE 64; RESP 17; O2SAT 98
[2021-05-13 14:26] VITALS: BP 138/97; PULSE 64; RESP 16; O2SAT 97
--- NOTE | 2021-05-13 17:22 | ECG_ITS ---
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 Measurements Intervals [place] Rate: 65 P: 27 NH: 166 QRS: -15 QRSD: 87 T: 9 QT: 366 QTc: 382 Interpretive Statements SINUS RHYTHM WITH SINUS ARRHYTHMIA MODERATE VOLTAGE CRITERIA FOR LVH, CONSIDER NORMAL VARIANT [MEETS CRITERIA IN ONE OF: R(aVL), S(V1), R(V5), R(V5/V6)+S(V1)] POSSIBLE ANTERIOR MYOCARDIAL INFARCTION , PROBABLY OLD [30 ms Q WAVE IN V3/V4, OR R < 0.2 mV IN V4] Compared to ECG 05/07/2021 09:37:03 Myocardial infarct finding now present Intraventricular conduction delay no longer present T-wave abnormality no longer present Electronically Signed On 05-13-2021 15:52:07 CDT by Jose Luis Mcdonald M.D. [id number]
== END 2021-05-13 14:32 | disposition home or self-care (01) ==
PROVIDERS: Emergency Provider Emergency Medicine; PCP Registered Nurse
DX: R07.9 Chest pain, unspecified (principal); Z79.82 Long term (current) use of aspirin; E78.5 Hyperlipidemia, unspecified; I10 Essential (primary) hypertension
CPT/HCPCS: 36415; 71045; 80053; 84484; 85025; 85610; 93005; 99283

== ENCOUNTER → 2021-05-14 12:24 | Outpatient (BNVA) | payer MEDICARE, MEDICAID, SELFPAY | PROVIDERS: PCP Registered Nurse; Visit Provider Specialist | DX: G40.209 Localization-related (focal) (partial) symptomatic epilepsy and epileptic syndromes with complex partial seizures, not intractable, without status epilepticus (principal); R55 Syncope and collapse; R07.9 Chest pain, unspecified; M51.16 Intervertebral disc disorders with radiculopathy, lumbar region; F41.9 Anxiety disorder, unspecified; F32.A Depression, unspecified | CPT/HCPCS: 99214; 99215 ==

== ENCOUNTER → 2021-05-21 10:23 | Outpatient (BNVA) | payer MEDICARE, MEDICAID, SELFPAY | PROVIDERS: PCP Registered Nurse; Visit Provider Nurse Practitioner Family | DX: R55 Syncope and collapse (principal); Z09 Encounter for follow-up examination after completed treatment for conditions other than malignant neoplasm; I10 Essential (primary) hypertension; R00.2 Palpitations | CPT/HCPCS: 99214 ==

== ENCOUNTER 2021-06-05 06:00 | Outpatient (RCR) | payer MEDICARE, MEDICAID, SELFPAY | END 2021-06-30 23:59 | disposition home or self-care (01) | LOC: WPT 06:00 | PROVIDERS: PCP Registered Nurse; Referring Provider Specialist; Visit Provider Specialist | DX: M51.16 Intervertebral disc disorders with radiculopathy, lumbar region (principal) | CPT/HCPCS: 97110; 97161; 97530 ==

== ENCOUNTER 2021-07-01 | Outpatient (RCR) | payer MEDICARE, MEDICAID, SELFPAY | END 2021-07-31 23:59 | disposition home or self-care (01) | LOC: WPT | PROVIDERS: PCP Registered Nurse; Referring Provider Specialist; Visit Provider Specialist | DX: M51.16 Intervertebral disc disorders with radiculopathy, lumbar region (principal) | CPT/HCPCS: 97110; 97164; 97530 ==

== ENCOUNTER → 2021-07-23 13:51 | Outpatient (BNVA) | payer MEDICARE, MEDICAID, SELFPAY | PROVIDERS: PCP Registered Nurse; Visit Provider Internal Medicine | DX: I10 Essential (primary) hypertension (principal); E78.5 Hyperlipidemia, unspecified; R00.2 Palpitations | CPT/HCPCS: 99213 ==

== ENCOUNTER 2021-08-01 06:00 | Outpatient (RCR) | payer MEDICARE, SELFPAY | END 2021-08-30 23:59 | disposition home or self-care (01) | LOC: WPT 06:00 | PROVIDERS: PCP Registered Nurse; Referring Provider Specialist; Visit Provider Specialist | DX: M51.16 Intervertebral disc disorders with radiculopathy, lumbar region (principal) | CPT/HCPCS: 97110 ==

== ENCOUNTER → 2021-08-06 13:41 | Outpatient (BNVA) | payer MEDICARE, MEDICAID, SELFPAY | PROVIDERS: PCP Registered Nurse; Visit Provider Specialist | DX: G40.209 Localization-related (focal) (partial) symptomatic epilepsy and epileptic syndromes with complex partial seizures, not intractable, without status epilepticus (principal); F41.9 Anxiety disorder, unspecified | CPT/HCPCS: 99213; 99214 ==

== ENCOUNTER → 2021-08-17 09:13 | Outpatient (BNVA) | payer MEDICARE, MEDICAID, SELFPAY | PROVIDERS: PCP Registered Nurse; Referring Provider Family Medicine; Visit Provider Orthopaedic Surgery | DX: S63.8X2A Sprain of other part of left wrist and hand, initial encounter (principal); X58.XXXA Exposure to other specified factors, initial encounter | CPT/HCPCS: 73110; 99203 ==

== ENCOUNTER → 2021-12-04 13:06 | Outpatient (BNVA) | payer MEDICARE, MEDICAID, SELFPAY | PROVIDERS: PCP Registered Nurse; Visit Provider Specialist | DX: G40.209 Localization-related (focal) (partial) symptomatic epilepsy and epileptic syndromes with complex partial seizures, not intractable, without status epilepticus (principal) | CPT/HCPCS: 99213 ==

== ENCOUNTER → 2022-05-22 11:08 | Outpatient (BNVA) | payer MEDICARE, MEDICAID, SELFPAY | PROVIDERS: PCP Registered Nurse; Visit Provider Registered Nurse | DX: I10 Essential (primary) hypertension (principal) | CPT/HCPCS: 80053; 80061; 85025 ==

== ENCOUNTER → 2022-07-22 13:54 | Outpatient (BNVA) | payer MEDICARE, MEDICAID, SELFPAY | PROVIDERS: PCP Registered Nurse; Visit Provider Internal Medicine | DX: E78.5 Hyperlipidemia, unspecified (principal); R00.2 Palpitations; I10 Essential (primary) hypertension | CPT/HCPCS: 99214 ==

== ENCOUNTER 2022-08-05 14:06 | Outpatient (CLI) | payer MEDICARE, MEDICAID, SELFPAY ==
--- NOTE | 2022-08-05 14:00 | XR_ITS ---
WS: [id number] SCREENING DEXA SCAN [facility] [employer] CLINICAL INFORMATION: M81.0 - Age-related osteoporosis without current patholog... COMPARISON: None. FINDINGS: The L1-L4 bone mineral density measures 1.197 g/cm2. This corresponds to a T score score of 0.1 and Z score of 0.7. Left femoral neck bone mineral density measures 0.917 g/cm2. This corresponds to a T score of -0.7 an d Z score of -0.2. Right femoral neck bone mineral density measures 0.936 g/cm2. This corresponds to a T score -0.6of an d Z score of -0.1. Mean femoral neck bone mineral density measures 0.927 g/cm2. This corresponds to a T score of -0.6 an d Z score of -0.2. XR/XR DEXA axial skeleton* [id number] IMPRESSION: Normal bone mineralization. Patient's FRAX calculated 10 year probability for major osteoporotic fracture i s 9.8 % and osteoporotic hip fracture is 0.8%.
== END 2022-08-05 14:07 | disposition home or self-care (01) ==
LOC: RAD 14:10
PROVIDERS: PCP Registered Nurse; Visit Provider Registered Nurse
DX: M81.0 Age-related osteoporosis without current pathological fracture (principal)
CPT/HCPCS: 77080

== ENCOUNTER → 2022-09-10 15:01 | Outpatient (BNVA) | payer MEDICARE, MEDICAID, SELFPAY | PROVIDERS: PCP Registered Nurse; Visit Provider Specialist | DX: G40.209 Localization-related (focal) (partial) symptomatic epilepsy and epileptic syndromes with complex partial seizures, not intractable, without status epilepticus (principal); F32.A Depression, unspecified; F81.9 Developmental disorder of scholastic skills, unspecified | CPT/HCPCS: 99213 ==

== ENCOUNTER → 2023-03-12 12:08 | Outpatient (BNVA) | payer MEDICARE, MEDICAID, SELFPAY | PROVIDERS: PCP Registered Nurse; Visit Provider Specialist | DX: G40.209 Localization-related (focal) (partial) symptomatic epilepsy and epileptic syndromes with complex partial seizures, not intractable, without status epilepticus (principal); F41.9 Anxiety disorder, unspecified; F32.A Depression, unspecified | CPT/HCPCS: 99213 ==

== ENCOUNTER → 2023-07-21 13:50 | Outpatient (BNVA) | payer MEDICARE, MEDICAID, SELFPAY | PROVIDERS: PCP Registered Nurse; Visit Provider Internal Medicine | DX: E78.5 Hyperlipidemia, unspecified (principal); R07.9 Chest pain, unspecified; R00.2 Palpitations; I10 Essential (primary) hypertension | CPT/HCPCS: 99214 ==

== ENCOUNTER → 2023-09-08 09:46 | Outpatient (BNVA) | payer MEDICARE, MEDICAID, SELFPAY | PROVIDERS: PCP Registered Nurse; Visit Provider Registered Nurse | DX: E78.5 Hyperlipidemia, unspecified (principal); E78.2 Mixed hyperlipidemia; I10 Essential (primary) hypertension; Z53.20 Procedure and treatment not carried out because of patient's decision for unspecified reasons; Z71.3 Dietary counseling and surveillance | CPT/HCPCS: 80053; 80061 ==

== ENCOUNTER → 2023-09-26 14:10 | Outpatient (BNVA) | payer MEDICARE, MEDICAID, SELFPAY | PROVIDERS: PCP Registered Nurse; Visit Provider Specialist | DX: G40.909 Epilepsy, unspecified, not intractable, without status epilepticus (principal); G40.209 Localization-related (focal) (partial) symptomatic epilepsy and epileptic syndromes with complex partial seizures, not intractable, without status epilepticus; F41.9 Anxiety disorder, unspecified; F32.A Depression, unspecified | CPT/HCPCS: 99213; 99214 ==

== ENCOUNTER → 2024-03-25 10:59 | Outpatient (BNVA) | payer MEDICARE, MEDICAID, SELFPAY | PROVIDERS: PCP Registered Nurse; Visit Provider Specialist | DX: G40.909 Epilepsy, unspecified, not intractable, without status epilepticus (principal); G40.209 Localization-related (focal) (partial) symptomatic epilepsy and epileptic syndromes with complex partial seizures, not intractable, without status epilepticus; F41.9 Anxiety disorder, unspecified; F32.A Depression, unspecified; R03.0 Elevated blood-pressure reading, without diagnosis of hypertension | CPT/HCPCS: 99213 ==

== ENCOUNTER → 2024-05-18 13:34 | Outpatient (BNVA) | payer MEDICARE, SELFPAY | PROVIDERS: PCP Registered Nurse; Visit Provider Registered Nurse | DX: R60.0 Localized edema (principal); I50.9 Heart failure, unspecified; R60.9 Edema, unspecified | CPT/HCPCS: 80053; 83880; 85025 ==

== ENCOUNTER 2024-05-31 14:54 | Outpatient (CLI) | payer MEDICARE, SELFPAY ==
--- NOTE | 2024-05-31 15:15 | USR_ITS ---
PROCEDURE INFORMATION: Exam: US Duplex Bilateral Lower Extremity Arteries Exam date and time: 05/31/2024 3:07 PM Age: 69 years old Clinical indication: Condition or disease; Peripheral vascular disease; Additional info: I73.9 - peripheral vascular disease, unspecified TECHNIQUE: Imaging protocol: Real-time ultrasound scan of the arteries of the bilateral lower extremities with 2-D whiteside scale, color Doppler flow and spectral waveform analysis. Images documented and saved. COMPARISON: No relevant prior studies available. FINDINGS: Right common femoral artery: No occlusion or significant stenosis. Normal waveform. Peak systolic velocity 99 cm/s. Right superficial femoral artery: No occlusion or significant stenosis. Normal waveform. Peak systolic velocity 90-133 cm/s. Right popliteal artery: No occlusion or significant stenosis. Normal waveform. Peak systolic velocity 62 cm/s. Right calf/foot arteries: No occlusion or significant stenosis in the visualized arteries. Monophasic waveforms within the posterior tibial and dorsalis pedis arteries. Dorsalis pedis artery is patent. Right LAINE: 0.91 Left common femoral artery: No occlusion or significant stenosis. Normal waveform. Peak systolic velocity 156 cm/s. Left superficial femoral artery: No occlusion or significant stenosis. Normal waveform. Peak systolic velocity 119-136 cm/s. Left popliteal artery: No occlusion or significant stenosis. Normal waveform. Peak systolic velocity 63 cm/s. Left calf/foot arteries: No occlusion or significant stenosis in the visualized arteries. Monophasic waveform in the posterior tibial artery. Dorsalis pedis artery is patent. Left LAINE: 1.04 US/CV arterial duplex [facility] [id number] IMPRESSION: 1. No stenosis or occlusion. 2. Borderline right LAINE (0.91). Left LAINE within normal limits (1.04).
== END 2024-05-31 14:55 | disposition home or self-care (01) ==
LOC: RAD 14:55
PROVIDERS: PCP Registered Nurse; Visit Provider Registered Nurse
DX: I73.9 Peripheral vascular disease, unspecified (principal)
CPT/HCPCS: 93925

== ENCOUNTER → 2024-07-08 13:42 | Outpatient (BNVA) | payer MEDICARE, SELFPAY | PROVIDERS: PCP Registered Nurse; Visit Provider Registered Nurse | DX: I10 Essential (primary) hypertension (principal) | CPT/HCPCS: 80048 ==

== ENCOUNTER → 2024-07-21 09:34 | Outpatient (BNVA) | payer MEDICARE, SELFPAY | PROVIDERS: PCP Registered Nurse; Visit Provider Internal Medicine | DX: R00.2 Palpitations (principal); E78.2 Mixed hyperlipidemia; R07.9 Chest pain, unspecified; I10 Essential (primary) hypertension; Z79.82 Long term (current) use of aspirin | CPT/HCPCS: 36415; 80048; 83880; 99214 ==

== ENCOUNTER 2024-07-29 09:48 | Outpatient (CLI) | payer MEDICARE, SELFPAY ==
--- NOTE | 2024-07-29 10:00 | USCV_ITS ---
Kelly Kwong Age: 69 Gender: F : 1955 Exam Date: 07/29/2024 10:19 Ordering Phys: Jose Luis Mcdonald M.D ([email or web address]) Technologist: Exam [place] [facility] [place]ication: cp sob BP: 140 / 80 HR: 75 Rhythm: Sinus Technical Quality: Adequate MEASUREMENTS (Male / Female) Normal Values 2D ECHO LV Diastolic Diameter PLAX 3.2 cm 4.2 - 5.9 / 3.9 - 5.3 cm IVS Diastolic Thickness 1.5 cm 0.6 - 1.0 / 0.6 - 0.9 cm IVS Systolic Thickness 1.7 cm LVPW Diastolic Thickness 1.3 cm 0.6 - 1.0 / 0.6 - 0.9 cm LVPW Systolic Thickness 1.7 cm LVOT Diameter 2.0 cm LV Ejection Fraction 2D Teich 67.3 % LV Ejection Fraction MOD 4C 66.5 % LV Ejection Fraction MOD 2C 63.8 % LV Ejection Fraction 2C AL 62.8 % LA Diameter 3.4 cm RA Systolic Volume 4C AL 57.9 ml RA Systolic Volume 4C MOD 56.7 ml LA Sys Volume AL 58.7 cm cubed LA Sys Volume Index AL 25.2 cm cubed/m squared Aorta at Sinotubular Diameter 3.2 cm IVC Diameter 2.0 cm M-MODE LA Ao Ratio MM 1.2 AV Cusp Separation MM 2.2 cm DOPPLER AV Peak Velocity 142.0 cm/s LVOT Peak Velocity 111.0 cm/s AV Area Cont Eq vti 3.6 cm squared AV Area Cont Eq pk 2.6 cm squared MV Peak Velocity 144.0 cm/s MV Area PHT 4.4 cm squared Mitral E to A Ratio 0.8 TV Peak Velocity 225.0 cm/s TR Peak Velocity 305.0 cm/s TR Peak Gradient 37.2 mmHg TV Peak E Velocity 92.0 cm/s PV Peak Velocity 130.0 cm/s FINDINGS Left Ventricle Left ventricle is normal size. LV systolic function is normal with EF of 60-65%. No regional wall motion abnormalities are seen. Grade 1 diastolic dysfunction. Right Ventricle Normal in size and function Right Atrium Normal in size Left Atrium Normal in size Mitral Valve Mild mitral annular calcification. Mild mitral regurgitation. Aortic Valve Grossly normal. No significant stenosis or regurgitation. Tricuspid Valve Mild tricuspid regurgitation. Pulmonary artery systolic pressure is 35-40 mmHg. This is consistent with mild pulmonary hypertension Pulmonic Valve Not well-visualized. Pericardium Normal. Aorta Normal in size IVC Not well visualized CONCLUSIONS LV systolic function is normal with EF of 60-65%. Grade 1 diastolic dysfunction. Mild mitral regurgitation. Mild tricuspid regurgitation. Mild pulmonary hypertension Jose Luis Mcdonald MD (Electronically Signed) Final Date: 15 August 2024 16:11 S
== END 2024-07-29 09:49 | disposition home or self-care (01) ==
PROVIDERS: PCP Registered Nurse; Visit Provider Internal Medicine
DX: R07.9 Chest pain, unspecified (principal); R06.02 Shortness of breath; R93.1 Abnormal findings on diagnostic imaging of heart and coronary circulation; I34.81 Nonrheumatic mitral (valve) annulus calcification; I34.0 Nonrheumatic mitral (valve) insufficiency; I07.1 Rheumatic tricuspid insufficiency; I27.20 Pulmonary hypertension, unspecified
CPT/HCPCS: 93306

== ENCOUNTER → 2024-08-18 07:53 | Outpatient (BNVA) | payer MEDICARE, SELFPAY | PROVIDERS: PCP Registered Nurse; Visit Provider Nurse Practitioner Family | DX: I10 Essential (primary) hypertension (principal); I87.2 Venous insufficiency (chronic) (peripheral); Z79.82 Long term (current) use of aspirin; R60.0 Localized edema | CPT/HCPCS: 99214 ==

== ENCOUNTER 2024-09-14 09:26 | Outpatient (CLI) | payer MEDICARE, SELFPAY ==
--- NOTE | 2024-09-14 09:30 | USR_ITS ---
PROCEDURE INFORMATION: Exam: US Duplex Lower Extremity Veins, Bilateral Exam date and time: 09/14/2024 9:46 AM Age: 69 years old Clinical indication: Edema, localized; Lower extremity, bilateral; Additional info: Le edema 2-3 months TECHNIQUE: Imaging protocol: Real-time duplex ultrasound of the bilateral extremities with 2-D whiteside scale, color Doppler flow and spectral waveform analysis including responses to compression and other maneuvers (when performed) with image documentation. Complete exam focused on the lower extremity veins. COMPARISON: No relevant prior studies available. FINDINGS: Right deep veins: Partially occlusive chronic thrombus in the mid right femoral vein extending into the right popliteal vein. The veins above and below this region appear patent. Left deep veins: Partially occlusive chronic thrombus in the proximal to mid left femoral vein into the popliteal vein. The veins above and below this region appear patent. Superficial veins: Greater saphenous veins at the saphenofemoral junctions are patent bilaterally without thrombus. Soft tissues: Unremarkable. Other findings: No significant reflux. US/CV sly dup insutayla [facility] [id number] IMPRESSION: Partially occlusive thrombus bilaterally, this appears chronic.
== END 2024-09-14 09:27 | disposition home or self-care (01) ==
LOC: RAD 09:28
PROVIDERS: PCP Registered Nurse; Visit Provider Nurse Practitioner Family
DX: I82.513 Chronic embolism and thrombosis of femoral vein, bilateral (principal); I82.533 Chronic embolism and thrombosis of popliteal vein, bilateral
CPT/HCPCS: 93970

== ENCOUNTER → 2024-09-17 10:51 | Outpatient (BNVA) | payer MEDICARE, SELFPAY | PROVIDERS: PCP Registered Nurse; Visit Provider Nurse Practitioner Family | DX: I82.403 Acute embolism and thrombosis of unspecified deep veins of lower extremity, bilateral (principal); R60.0 Localized edema; I82.513 Chronic embolism and thrombosis of femoral vein, bilateral; I10 Essential (primary) hypertension; Z79.01 Long term (current) use of anticoagulants; Z79.82 Long term (current) use of aspirin | CPT/HCPCS: 99214 ==

== ENCOUNTER → 2024-09-22 09:58 | Outpatient (BNVA) | payer MEDICARE, SELFPAY | PROVIDERS: PCP Registered Nurse; Visit Provider Specialist | DX: G40.109 Localization-related (focal) (partial) symptomatic epilepsy and epileptic syndromes with simple partial seizures, not intractable, without status epilepticus (principal); F41.9 Anxiety disorder, unspecified; F32.A Depression, unspecified; R03.0 Elevated blood-pressure reading, without diagnosis of hypertension; I82.513 Chronic embolism and thrombosis of femoral vein, bilateral; R60.0 Localized edema; G47.10 Hypersomnia, unspecified | CPT/HCPCS: 99214 ==

== ENCOUNTER 2024-10-23 18:34 | Inpatient (IN) | payer MEDICARE, MEDICAID, SELFPAY ==
[2024-10-23] VITALS (15 sets, daily range): BP systolic 105–146; BP diastolic 61–88; PULSE 68–82; RESP 17–23; TEMP 36.8; O2SAT 95–100; BMI 38.7
--- OUTSIDE RECORDS SUMMARY | 2024-10-23 18:52 | XMS_ITS | Encounter Summary ---
Author Organization [facility] Address [address] [place] [address] Care Team Providers Care Net Mobile Developer Name Role Phone IVY Beard Sr., Michael Dave Primary Care Pro vider Encounter Details Date Type Department Care Team (Latest Contact Info) Description 12/23/2002 Outpatient Historical [facility] Operating Room [address] [place] [address] Papi White III, MD [facility] [address] [address] OTHER ORTHOPEDIC AFTERCARE (Primary Dx) Social History Tobacco Use Types Packs/Day Years Used Date Smoking Tobacco: Never Assessed Comments Unknown Sex and Gender Information Value Date Recorded Sex Assigned at Not on file Legal Sex Female 3:11 AM OFFICE INSPECTOR Gender Identity Not on file Sexual Orientation Not on file documented as of this encounter Plan of Treatment Not on file documented as of this encounter Visit Diagnoses Diagnosis Other orthopedic aftercare(V54.89)- Primary Other orthopedic aftercare documented in this encounter Care Teams Net Mobile Developer Relationship Specialty Start Date End Date Reynaldo eBard Sr., FNP [address] [place] [address] PCP - General NURSE PRACTITIONER 05/28/13 documented as of this encounter
--- OUTSIDE RECORDS SUMMARY | 2024-10-23 18:52 | XMS_ITS | Encounter Summary ---
Author Organization [facility] Address [address] [place] [address] Care Team Providers Care Veterans Contact Representative Name Role Phone IVY Beard Sr., Michael Dave Primary Care Pro vider Encounter Details Date Type Department Care Team (Latest Contact Info) Description 12/17/2002 Outpatient Historical [facility] Orthopedics- 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
--- OUTSIDE RECORDS SUMMARY | 2024-10-23 18:52 | XMS_ITS | Encounter Summary ---
Author Organization [facility] Address [address] [place] [address] Care Team Providers Care Physiotherapy Assistant Name Role Phone IVY Beard Sr., Michael Dave Primary Care Pro vider Reason for Referral * Outpatient Services (Routine) - Closed Specialty Diagnoses / Procedures Referred By Contdakota t Referred To Contact Diagnoses Left leg numbness Procedures MRI LUMBAR WO CONTRAST Reynaldo Beard Sr., FNP [address] [place] [address] Phone: tel: fax: [facility] View [address] [address] [place] [address] Phone: tel: fax: Referral ID Status Reason Start Date Expiration Date Visits Re quested Visits Authorized [id number] Closed 08/20/2012 09/19/2012 1 1 Encounter Details Date Type Department Care Team (Latest Contact Info) Description 08/20/2012 Ancillary Orders [facility] Scheduling [address] [facility] [address] [place] [address] Reynaldo Beard Sr., FNP [address] [place] [id number] Left leg numbness (Primary Dx) Social History Tobacco Use Types Packs/Day Years Used Date Smoking Tobacco: Never Assessed Comments Unknown Sex and Gender Information Value Date Recorded Sex Assigned at Not on file 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 Exam: MRI LUMBAR WO CONTRAST Date/Time of Exam: Aug 26, 2012 01:27:40 PM Reason For Exam: Disturbance of skin sensation. Technique: MRI of the lumbar spine was performed without the administration of intravenous contrast. The lumbar spine is normal in sagittal alignment. The cauda equina and conus medullaris appear normal. No intradural disease is present. STIR images show no recent fractures. Mild old fractures of the T11, T12, L1, L2 vertebral bodies are present. Cupping of endplates of the L3-L4 and L5 bodies is also present. Moderate anterior spondylosis is present. The paraspinal tissues are unremarkable. L1-L2: Mild diffuse disc protrusion is present. L2-L3: Mild diffuse disc bulge is present. L3-L4: A mild diffuse disc bulge is present. L4-L5: Largely unremarkable. L5-S1: Mild facet arthritic changes are present. Mild foraminal stenosis is seen on the left from disc protrusion. Impression: 1. Multiple old fractures are present. No recent fractures are seen. 2. Disc extrusion laterally on the left at L5-S1 could affect the left L5 nerve in the extra foraminal zone. 3. Mild diffuse disc and facet changes are present. Narrative Procedure Note Santy Sherman MD - 08/26/2012 IMPRESSION IMPRESSION: See report below. Exam: MRI LUMBAR WO CONTRAST Date/Time of Exam: Aug 26, 2012 01:27:40 PM Reason For Exam: Disturbance of skin sensation. Technique: MRI of the lumbar spine was performed without the administration of intravenous contrast. The lumbar spine is normal in sagittal alignment. The cauda equina and conus medullaris appear normal. No intradural disease is present. STIR images show no recent fractures. Mild old fractures of the T11, T12, L1, L2 vertebral bodies are present. Cupping of endplates of the L3-L4 and L5 bodies is also present. Moderate anterior spondylosis is present. The paraspinal tissues are unremarkable. L1-L2: Mild diffuse disc protrusion is present. L2-L3: Mild diffuse disc bulge is present. L3-L4: A mild diffuse disc bulge is present. L4-L5: Largely unremarkable. L5-S1: Mild facet arthritic changes are present. Mild foraminal stenosis is seen on the left from disc protrusion. Impression: 1. Multiple old fractures are present. No recent fractures are seen. 2. Disc extrusion laterally on the left at L5-S1 could affect the left L5 nerve in the extra foraminal zone. 3. Mild diffuse disc and facet changes are present. us IVY Davis Sr. MR ORDERABLES F inal Result documented in this encounter Visit Diagnoses Diagnosis Left leg numbness- Primary Disturbance of skin sensation Left leg numbness Disturbance of skin sensation documented in this encounter Care Teams Physiotherapy Assistant Relationship Specialty Start Date End Date Kisha Weaver, IVY Hayward [address] [place] [address] PCP - General NURSE PRACTITIONER 05/28/13 documented as of this encounter
--- OUTSIDE RECORDS SUMMARY | 2024-10-23 18:52 | XMS_ITS | Patient Health Record ---
Author Organization [facility] Address [address] [place], [place] [address] Care Team Providers Care Space And Storage Clerk Name Role Phone Marques Webb Primary Care Provider Mitchell Garsia MD, Vincent Unavailable [phone] Akin MARS, Darwin Unavailable Unavailable Allergies Allergen (clinical drug ingredient) Drug/Non Drug Allergy documented on EMR Reaction Allergy Type Onset Date Status None or not verifiab le (uncoded) Unknown Allergy Active Reason For Referral No Information Plan Of Treatment No Information Insurance Providers Payer Name Payer Address Payer Phone Subscriber Number Group Number Insured Name Patient Relationship to Insured Coverage Start Date Coverage End Date [place] [address] [place] [address] [id number] Kelly Kwong Self - patient is the insured Medical (General) History Medical History History ICD Code See scanned documentation
--- OUTSIDE RECORDS SUMMARY | 2024-10-23 18:52 | XMS_ITS | Encounter Summary ---
Author Organization [employer] [facility] Address [address] [facility] Attn: [place] [address] Care Team Providers Care Dials Inspector Name Role Phone IVY Beard Sr., Reynaldo Shaw Primary Care Pro vider Encounter Details Date Type Department Care Team (Late st Contact Info) Description 04/10/2001 Outpatient Historical Louisa Marquez, DO [address] [place], [place] [id number] Social History Tobacco Use Types Packs/Day Years Used Date Smoking Tobacco: Never Assessed Comments Unknown Sex and Gender Information Value Date Recorded Sex Assigned at Not on file Legal Sex Female 3:11 AM CORRECTIONAL 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
--- OUTSIDE RECORDS SUMMARY | 2024-10-23 18:52 | XMS_ITS | Encounter Summary ---
Author Organization [facility] Address [address] [place] [address] Care Team Providers Care Appetizer Packer Name Role Phone IVY Beard Sr., Michael Dave Primary Care Pro vider Encounter Details Date Type Department Care Team (Latest Contact Info) Description 02/02/2003 Outpatient Historical [facility] Orthopedics- 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
--- OUTSIDE RECORDS SUMMARY | 2024-10-23 18:52 | XMS_ITS | Encounter Summary ---
Author Organization [facility] Address [address] [place] [address] Care Team Providers Care Head Soft Sugar Operator Name Role Phone VIY Beard Sr., Michael Dave Primary Care Pro vider Reason for Referral * Outpatient Services (Routine) - Closed Specialty Diagnoses / Procedures Referred By Contac t Referred To Contact Radiology Diagnoses Abdominal pain Procedures US ABDOMEN LIMITED Reynaldo Beard Sr., FNP [address] [place] [address] Phone: tel: fax: [facility] [address] [place] [address] Phone: tel: fax: Referral ID Status Reason Start Date Expiration Date V isits Requested Visits Authorized [id number] Closed [facility] CTS to Schedule (SGF) 07/12/2013 08/12/2014 1 1 Encounter Details Date Type Department Care Team (Latest Contact Info) Description 07/12/[address] 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 No hepatic focal defect or duct dilatation is seen. Common bile duct measures 4.1 mm. Gallbladder shows no stones. There is no pericystic fluid collection. Wall thickness is 2.4 mm. Kwong sign is not documented. The visualized portion of head and body of pancreas appears unremarkable. Aorta and vena cava appear unremarkable to the extent visualized. Right renal span is 10.9 cm. No renal masses, cysts or hydronephrosis are seen. IMPRESSION no acute RUQ abdominal findings seen Procedure Note Moses Vital MD - 07/13/2013 PROCEDURE US LIMITED ABDOMEN, 13 Jul 2013 DESCRIPTION RUQ evaluation shows hepatic span is 7.6 cm. No hepatic focal defect or duct dilatation is seen. Common bile duct measures 4.1 mm. Gallbladder shows no stones. There is no pericystic fluid collection. Wall thickness is 2.4 mm. Kwong sign is not documented. The visualized portion of head and body of pancreas appears unremarkable. Aorta and vena cava appear unremarkable to the extent visualized. Right renal span is 10.9 cm. No renal masses, cysts or hydronephrosis are seen. IMPRESSION no acute RUQ abdominal findings seen us IVY Davis Sr. US ORDERABLES F inal Result documented in this encounter Visit Diagnoses Diagnosis Abdominal pain- Primary Abdominal pain, unspecified site Abdominal pain Abdominal pain, unspecified site documented in this encounter Care Teams Head Soft Sugar Operator Relationship Specialty Start Date End Date Kisha Weaver, IVY Hayward [address] [place] [address] PCP - General NURSE PRACTITIONER 05/28/13 documented as of this encounter
--- OUTSIDE RECORDS SUMMARY | 2024-10-23 18:52 | XMS_ITS | Encounter Summary ---
Author Organization [facility] Address [address] [place] [address] Care Team Providers Care Assistant Professor Of Philosophy Name Role Phone IVY Beard Sr., Michael Dave Primary Care Pro vider Encounter Details Date Type Department Care Team (Latest Contact Info) Description 10/06/2002 Outpatient Historical [facility] [place] [address] [place] [address] [facility] FX TIBIA W FIB NOS-OPEN (Primary Dx) Social History Tobacco Use Types Packs/Day Years Used Date Smoking Tobacco: Never Assessed Comments Unknown Sex and Gender Information Value Date Recorded Sex Assigned at Not on file Legal Sex Female 3:11 AM FAMILY PRACTICE PHYSICIAN ASSISTANT Gender Identity Not on file Sexual Orientation Not on file documented as of this encounter Plan of Treatment Not on file documented as of this encounter Visit Diagnoses Diagnosis Open fracture of unspecified part of fibula with tibia- Primary documented in this encounter Care Teams Assistant Professor Of Philosophy Relationship Specialty Start Date End Date Reynaldo Beard Sr., FNP [address] [place] [address] PCP - General NURSE PRACTITIONER 05/28/13 documented as of this encounter
--- OUTSIDE RECORDS SUMMARY | 2024-10-23 18:52 | XMS_ITS | Encounter Summary ---
Author Organization [facility] Address [address] [place] [address] Care Team Providers Care Telehealth Nurse Educator Name Role Phone IVY Beard Sr., Michael Dave Primary Care Pro vider Encounter Details Date Type Department Care Team (Latest Contact Info) Description 11/17/2002 Outpatient Historical [facility] Orthopedics- [address] [place] [address] FX UPPER END TIBIA-CLOSE (Primary Dx) Social History Tobacco Use Types Packs/Day Years Used Date Smoking Tobacco: Never Assessed Comments Unknown Sex and Gender Information Value Date Recorded Sex Assigned at Not on file Legal Sex Female 3:11 AM PARK SERVICES SPECIALIST Gender Identity Not on file Sexual Orientation Not on file documented as of this encounter Plan of Treatment Not on file documented as of this encounter Visit Diagnoses Diagnosis Closed fracture of upper end of tibia- Primary documented in this encounter Care Teams Telehealth Nurse Educator Relationship Specialty Start Date End Date Reynaldo Beard Sr., FNP [address] [place] [address] PCP - General NURSE PRACTITIONER 05/28/13 documented as of this encounter
--- OUTSIDE RECORDS SUMMARY | 2024-10-23 18:52 | XMS_ITS | Encounter Summary ---
Author Organization [facility] Address [address] [place] [address] Care Team Providers Care Food Production Machine Operator Name Role Phone IVY Beard Sr., Michael Dave Primary Care Pro vider Encounter Details Date Type Department Care Team (Latest Contact Info) Description 10/20/2002 Outpatient Historical [facility] FX UPPER END TIBIA-CLOSE (Primary Dx) Social History Tobacco Use Types Packs/Day Years Used Date Smoking Tobacco: Never Assessed Comments Unknown Sex and Gender Information Value Date Recorded Sex Assigned at Not on file Legal Sex Female 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
--- OUTSIDE RECORDS SUMMARY | 2024-10-23 18:52 | XMS_ITS | Encounter Summary ---
Author Organization [facility] Address [address] [place] [address] Care Team Providers Care Ecotherapist Name Role Phone IVY Beard Sr., Michael Dave Primary Care Pro vider Encounter Details Date Type Department Care Team (Late st Contact Info) Description 05/08/2009 Ancillary Orders [facility] Imaging External Read [address] [place] [id number] Reynaldo Beard Sr., FNP [address] [place] [address] Screening Mammogram Social History Tobacco Use Types Packs/Day Years Used Date Smoking Tobacco: Never Assessed Comments Unknown Sex and Gender Information Value Date Recorded Sex Assigned at Not on file Legal Sex Female 3:11 AM SEASONER Gender Identity Not on file Sexual Orientation Not on file documented as of this encounter Plan of Treatment Not on file documented as of this encounter Results * MAMMO SCREENING BILAT (05/08/2009 8:36 AM SEASONER) Anatomical Region Laterality Modality Breast Bilateral Mammography Narrative 05/09/2009 10:40 AM SEASONER Bilateral Mammogram Reason for Exam: Screening Comparison: Comparison is made with the prior exam(s) dated 04.02.01 Findings: Bilateral CC and MLO views were obtained. This examination was reviewed with the aid of a computer-aided detection system(CAD). The breast tissue density is average. No significant new findings since the prior mammogram(s). Procedure Note Dejah Elkins MD - 05/09/2009 Bilateral Mammogram Reason for Exam: Screening Comparison: Comparison is made with the prior exam(s) dated 04.02.01 Findings: Bilateral CC and MLO views were obtained. This examination was reviewed with the aid of a computer-aided detectionsystem(CAD). The breast tissue density is average. No significant new findings since the prior mammogram(s). IVY Davis Sr. MAMMO ORDERABLES Final Result documented in this encounter Visit Diagnoses Diagnosis Screening mammogram Other screening mammogram documented in this encounter Care Teams Ecotherapist Relationship Specialty Start Date End Date Reynaldo Beard Sr., FNP [address] [place] [address] PCP - General NURSE PRACTITIONER 05/28/13 documented as of this encounter
--- OUTSIDE RECORDS SUMMARY | 2024-10-23 18:52 | XMS_ITS | Clinical Summary ---
Author Organization [facility] Address [address] [place] [address] Phone Care Team Providers Care Valve Fitter Name Role Phone Kisha Weaver, IVY, Reynaldo Shaw Primary Care Pro vider Allergies No known active allergies Medications HYDROcodone-quoc taminophen (NORCO) 7.5-325 mg Tablet Take 1 Tab by mouth every 4 hours as needed for Pain, Moderate. Active gabapentin (NEURONTIN) 600 mg tablet Take 600 mg by mouth Daily LATE . Active lovastatin (MEVACOR) 40 mg tablet Take 40 mg by mouth daily. Active QUEtiapine (SEROQUEL) 300 mg tablet Take 300 mg by mouth daily at bedtime. Take 1/2 Active loratadine (CLARITIN) 10 mg tablet Take 10 mg by mouth daily. Active benazepril (LOTENSIN) 20 mg tablet Take 20 mg by mouth daily. Active ferrous gluconate (FERGON) 240 mg (27 mg iron) Tablet Take 325 mg by mouth daily. Active calcium-choleca lciferol (OS-LISETH 500+D) 500 mg(1,250mg) -200 unit tablet Take 1 Tablet by mouth daily. Active citalopram (CeleXA) 40 mg tablet Take 40 mg by mouth daily. Active cetirizine (ZyrTEC) 10 mg tablet Take 10 mg by mouth daily. Active carBAMazepine (CARBATROL) 300 mg Extended Release 12 hour capsule Take 300 mg by mouth 2 times daily. Active alendronate (FOSAMAX) 70 mg tablet Take 70 mg by mouth every 7 days empty stomach before other meds,with 8oz of water, stay upright 30 min . Active predniSONE (DELTASONE) 20 mg tablet Take 1 Tablet (20 mg) by mouth 2 times daily with meals. 4 Tablet 0 11/27/2015 Active permethrin (ELIMITE) 5 % Cream Apply to entire body for 10-12 hours then shower off. 60 Gram None 11/27/2015 Active Active Problems No known active problems Social History Tobacco Use Types Packs/Day Years Used Date Smoking Tobacco: Never Alcohol Use Standard Drinks/Week Comments No 0 (1 standard drink = 0.6 oz pur e alcohol) Comments No Sex and Gender Information Value Date Recorded Sex Assigned at Not on file Legal Sex Female 3:11 AM GENERAL MATCHER Gender Identity Not on file Sexual Orientation Not on file Last Filed Vital Signs Vital Sign Reading Time Taken Comments Blood Pressure 132/71 11/27/2015 5:55 PM CDT Pulse 95 09/24/2013 9:55 AM CDT Temperature 36.9 C (98.4 F) 11/27/2015 5:55 PM CDT Respiratory Rate 18 11/27/2015 5:55 PM CDT Oxygen Saturation 94% 11/27/2015 5:55 PM CDT Inhaled Oxygen Concentration - - Weight 93 kg (205 lb) 11/27/2015 5:18 PM CDT Height 167.6 cm (5' 6 ) 11/27/2015 5:18 PM CDT Body Mass Index 33.09 11/27/2015 5:18 PM CDT Plan of Treatment Health Maintenance Due Date Last Done Comments DTAP/TDAP/TD VACCINES (1 - Tdap) 05/05/1975 COLORECTAL SCREENING 2001 Colorectal Cancer Screening 2001 FIT-DNA Q 3 years 2001 FIT/FOBT Q 1 year 2001 Flex Sig/CT Colonography Q 5 years 2001 PNEUMOCOCCAL VACCINE 50+ YEARS (1 of 1 - PCV) 05/05/19 07 ZOSTER VACCINE (1 of 2) 2006 BREAST CANCER SCREENING 05/08/2010 05/08/2009 OSTEOPOROSIS SCREENING 2021 INFLUENZA VACCINE (#1) 2024 RSV VACCINE (60+ or ) (1 - 1-dose 75+ series) 05/05/2031 Procedures Procedure Name Priority Date/Time Associated Diagnosis Comments MAMMO SCREENING BILAT Routine 05/08/2009 8:36 AM GENERAL MATCHER Screening Mammogram from Last 3 Months or Most Recently Relevant to Health Maintenance Results * MAMMO SCREENING BILAT (05/08/2009 8:36 AM GENERAL MATCHER) Anatomical Region Laterality Modality Breast Bilateral Mammography Narrative 05/09/2009 10:40 AM GENERAL MATCHER Bilateral Mammogram Reason for Exam: Screening Comparison: [...] IVY Davis Sr. MAMMO ORDERABLES Final Result from Last 3 Months or Most Recently Relevant to Health Maintenance Insurance MEDICAID [place] Care Teams Valve Fitter Relationship Specialty Start Date End Date Reynaldo Beard Sr., FNP [address] [place] [address] PCP - General NURSE PRACTITIONER 05/28/13
--- OUTSIDE RECORDS SUMMARY | 2024-10-23 18:52 | XMS_ITS | Encounter Summary ---
Author Organization [facility] Address [address] [place] [address] Care Team Providers Care Shotweld Operator Name Role Phone IVY Beard Sr., Michael Dave Primary Care Pro vider Encounter Details Date Type Department Care Team (Latest Contact Info) Description 12/29/2002 Outpatient Historical [facility] Orthopedics- 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
--- OUTSIDE RECORDS SUMMARY | 2024-10-23 18:52 | XMS_ITS | Encounter Summary ---
Author Organization [facility] Address [address] [place] [address] Care Team Providers Care Athletics Director Name Role Phone IVY Beard Sr., Michael Dave Primary Care Pro vider Encounter Details Date Type Department Care Team (Latest Contact Info) Description 03/16/2003 Outpatient Historical [facility] Orthopedics- [address] [place] [address] FX UPPER END TIBIA-CLOSE (Primary Dx) Social History Tobacco Use Types Packs/Day Years Used Date Smoking Tobacco: Never Assessed Comments Unknown Sex and Gender Information Value Date Recorded Sex Assigned at Not on file Legal Sex Female 3:11 AM QUALITY ASSURANCE QA LAB ANALYST Gender Identity Not on file Sexual Orientation Not on file documented as of this encounter Plan of Treatment Not on file documented as of this encounter Visit Diagnoses Diagnosis Closed fracture of upper end of tibia- Primary documented in this encounter Care Teams Athletics Director Relationship Specialty Start Date End Date Reynaldo Beard Sr., FNP [address] [place] [address] PCP - General NURSE PRACTITIONER 05/28/13 documented as of this encounter
--- OUTSIDE RECORDS SUMMARY | 2024-10-23 18:52 | XMS_ITS | Encounter Summary ---
Author Organization [facility] Address [address] [place] [address] Care Team Providers Care Executive Vice President And Chief Operating Officer Name Role Phone IVY Beard Sr., Michael Dave Primary Care Pro vider Encounter Details Date Type Department Care Team (Latest Contact Info) Description 05/18/2003 Outpatient Historical [facility] Orthopedics- [address] [place] [address] FX UPPER END TIBIA-CLOSE (Primary Dx); BONE & CARTILAGE DIS NOS Social History Tobacco Use Types Packs/Day Years Used Date Smoking Tobacco: Never Assessed Comments Unknown Sex and Gender Information Value Date Recorded Sex Assigned at Not on file Legal Sex Female 3:11 AM CONTRACTS OFFICER Gender Identity Not on file Sexual Orientation Not on file documented as of this encounter Plan of Treatment Not on file documented as of this encounter Visit Diagnoses Diagnosis Closed fracture of upper end of tibia- Primary Disorder of bone and cartilage, unspecified documented in this encounter Care Teams Executive Vice President And Chief Operating Officer Relationship Specialty Start Date End Date Reynaldo Beard Sr., FNP [address] [place] [address] PCP - General NURSE PRACTITIONER 05/28/13 documented as of this encounter
--- OUTSIDE RECORDS SUMMARY | 2024-10-23 18:52 | XMS_ITS | Encounter Summary ---
Author Organization [facility] Address [address] [place] [address] Care Team Providers Care Global Consumer Sector Vice President Name Role Phone IVY Beard Sr., Michael Dave Primary Care Pro vider Encounter Details Date Type Department Care Team (Latest Contact Info) Description 10/06/2002 Inpatient Historical [facility] Emergency Department [address] [place] [address] Papi White III, MD [address] [address] FX SHAFT TIBIA W FIB-OPEN (Primary Dx) Social History Tobacco Use Types Packs/Day Years Used Date Smoking Tobacco: Never Assessed Comments Unknown Sex and Gender Information Value Date Recorded Sex Assigned at Not on file Legal Sex Female 3:11 AM LEARNING PROGRAM MANAGER Gender Identity Not on file Sexual Orientation Not on file documented as of this encounter Plan of Treatment Not on file documented as of this encounter Visit Diagnoses Diagnosis Open fracture of shaft of fibula with tibia- Primary documented in this encounter Care Teams Global Consumer Sector Vice President Relationship Specialty Start Date End Date Reynaldo Beard Sr., FNP [address] [place] [address] PCP - General NURSE PRACTITIONER 05/28/13 documented as of this encounter
--- OUTSIDE RECORDS SUMMARY | 2024-10-23 18:52 | XMS_ITS | Clinical Summary ---
Author Organization [employer] Address [address] [facility] Attn: Epic Prelude ADT [place] [address] Care Team Providers Care Adult Education Professional Name Role Phone Unavailable Primary Care Provider Unavailabl e Allergies No known active allergies Medications pantoprazole (PROTONIX) 40 mg Tablet, Delayed Release (E.C.) Take 40 mg by mouth daily. Active carvediloL (COREG) 3.125 mg tablet Take 3.125 mg by mouth 2 times daily with meals. Active aspirin (ECOTRIN EC) 81 mg Tablet, Delayed Release (E.C.) Take 81 mg by mouth daily. Active benazepriL (LOTENSIN) 40 mg tablet Take 40 mg by mouth daily. Active LOVASTATIN ORAL Take 1 Tablet by mouth daily. Active OTHER Seizure medication takes 2 x day. Not sure on name Active alendronate (FOSAMAX) 70 mg tablet Take 70 mg by mouth every 7 days. Active calcium-choleca lciferol (OS-LISETH 500+D) 500 mg-5 mcg (200 unit) tablet Take 1 Tablet by mouth daily. Active carBAMazepine (CARBATROL) 300 mg Extended Release 12 hour capsule Take 300 mg by mouth 2 times daily. Active cetirizine (ZyrTEC) 10 mg tablet Take 10 mg by mouth daily. Active citalopram (CeleXA) 40 mg tablet Take 40 mg by mouth daily. Active citalopram (CeleXA) 40 mg tablet TAKE 1 AND 1/2 TABLETS BY MOUTH DAILY 2 Active cloBAZam (ONFI) 20 mg Tablet Take 20 mg by mouth 2 times daily. 2 Active ferrous gluconate 240 mg (27 mg iron) Tablet Take 325 mg by mouth daily. Active loratadine (CLARITIN) 10 mg tablet Take 10 mg by mouth daily. Active QUEtiapine (SEROquel) 300 mg tablet Take 300 mg by mouth daily at bedtime. Active HYDROcodone-quoc taminophen (NORCO) 5-325 mg tabletIndicatio ns:Closed fracture of left wrist, initial encounter Take 1 Tablet by mouth every 4 hours as needed for Pain, Severe. Max Daily Amount: 6 Tablets 30 Tablet 2 Active gabapentin (NEURONTIN) 600 mg tablet Take 600 mg by mouth late in the day. Active carBAMazepine (CARBATROL) 300 mg Extended Release 12 hour capsule Take 300 mg by mouth 2 times daily. 6 Active cetirizine (ZyrTEC) 10 mg tablet Take 10 mg by mouth daily. 6 Active permethrin (ELIMITE) 5 % Cream Apply to entire body for 10-12 hours then shower off. 60 Gram None 6 Active calcium-choleca lciferol (OS-LISETH 500+D) 500 mg-5 mcg (200 unit) tablet Take 1 Tablet by mouth daily. 6 Active predniSONE (DELTASONE) 20 mg tablet Take 1 Tablet (20 mg) by mouth 2 times daily with meals. 4 Tablet 0 6 Active alendronate (FOSAMAX) 70 mg tablet Take 70 mg by mouth every 7 days empty stomach before other meds,with 8oz of water, stay upright 30 min . 6 Active citalopram (CeleXA) 40 mg tablet Take 40 mg by mouth daily. 6 Active amlodipine besylate (AMLODIPINE ORAL) Take 5 mg by mouth. Active Active Problems No known active problems Social History Tobacco Use Types Packs/Day Years Used Date Smoking Tobacco: Never Smokeless Tobacco: Never Tobacco Cessation:Counseling Given: Not Answered Alcohol Use Standard Drinks/Week Comments No 0 (1 standard drink = 0.6 oz pur e alcohol) Comments No Sex and Gender Information Value Date Recorded Sex Assigned at Not on file Legal Sex Female 10:52 AM PLATE EMBOSSER Gender Identity Not on file Sexual Orientation Not on file Last Filed Vital Signs Vital Sign Reading Time Taken Comments Blood Pressure 138/84 07/16/2022 11:17 AM CDT Pulse 68 10/25/2021 8:30 AM CDT Temperature 36.4 C (97.6 F) 08/07/2021 10:02 AM CDT Respiratory Rate 20 08/07/2021 10:02 AM CDT Oxygen Saturation 92% 08/07/2021 10:02 AM CDT Inhaled Oxygen Concentration - - Weight 95.3 kg (210 lb) 07/16/2022 11:17 AM CDT Height 165.1 cm (5' 5 ) 07/16/2022 11:17 AM CDT Body Mass Index 34.95 07/16/2022 11:17 AM CDT Plan of Treatment Health Maintenance Due [...] MAMMO SCREENING BILAT Routine 05/08/2009 8:36 AM PLATE EMBOSSER Other screening mammogram from Last 3 Months or Most Recently Relevant to Health Maintenance Results * MAMMO SCREENING BILAT (05/08/2009 8:36 AM PLATE EMBOSSER) Anatomical Region Laterality Modality Breast Bilateral Other Narrative 05/09/2009 10:40 AM PLATE EMBOSSER Bilateral Mammogram Reason for Exam: Screening Comparison: Comparison is made with the prior exam(s) dated 04.02.01 Findings: Bilateral CC and MLO views were obtained. This examination was reviewed with the aid of a computer-aided detection system(CAD). The breast tissue density is average. No significant new findings since the prior mammogram(s). Procedure Note Dejah Elkins MD - 05/17/2022 Bilateral Mammogram Reason for Exam: Screening Comparison: Comparison is made with the prior exam(s) dated 04.02.01 Findings: Bilateral CC and MLO views were obtained. This examination was reviewed with the aid of a computer-aided detection system(CAD). The breast tissue density is average. No significant new findings since the prior mammogram(s). Reynaldo Beard Sr., DIET ASSISTANT MAMMO ORDERABLES Final Result from Last 3 Months or Most Recently Relevant to Health Maintenance Insurance [place] [address] [place] [id number]
--- OUTSIDE RECORDS SUMMARY | 2024-10-23 18:52 | XMS_ITS | Encounter Summary ---
Author Organization [facility] Address [address] [place] [address] Care Team Providers Care Slitter Creaser Slotter Helper Name Role Phone Kisha Weaver, IVY, Reynaldo Shaw Primary Care Pro vider Encounter Details Date Type Department Care Team (Late st Contact Info) Description 09/15/2017 Ancillary Orders Smarter Agent [facility] [address] [place] [address] Cherelle Quinn, IVY [address] [place] [address] Pain and swelling of right wrist Social History Tobacco Use Types Packs/Day Years Used Date Smoking Tobacco: Never Alcohol Use Standard Drinks/Week Comments No 0 (1 standard drink = 0.6 oz pur e alcohol) Comments No Sex and Gender Information Value Date Recorded Sex Assigned at Not on file Legal Sex Female 3:11 AM CUSTOMER SERVICE ANALYST Gender Identity Not on file Sexual Orientation Not on file documented as of this encounter Plan of Treatment Not on file documented as of this encounter Results * XR WRIST 3+ VW RIGHT (09/15/2017 12:14 PM CDT) Anatomical Region Laterality Modality Wrist / Hand Computed Radiogr aphy 09/15/2017 12:1 4 PM CDT Impressions 09/15/2017 8:14 PM CDT IMPRESSION: Soft tissue swelling without evidence of an acute osseous abnormality. Moderate to advanced first carpometacarpal joint degenerative changes. [id number] Narrative 09/15/2017 8:14 PM CDT Exam: XR WRIST 3+ VW RIGHT Date/Time of Exam: 09/15/2017 12:14 PM Reason For Exam: Pain and swelling of right wrist,Pain and swelling of right wrist. Comparison: None. Findings: There is no evidence of an acute fracture or dislocation. Moderate to advanced first carpometacarpal joint degenerative changes are present. The bone density is diminished. There is soft tissue swelling. Procedure Note Rj Small, DO - 09/15/2017 Exam: XR WRIST 3+ VW RIGHT Date/Time of Exam: 09/15/2017 12:14 PM Reason For Exam: Pain and swelling of right wrist,Pain and swelling of right wrist. Comparison: None. Findings: There is no evidence of an acute fracture or dislocation. Moderate to advanced first carpometacarpal joint degenerative changes are present. The bone density is diminished. There is soft tissue swelling. IMPRESSION: Soft tissue swelling without evidence of an acute osseous abnormality. Moderate to advanced first carpometacarpal joint degenerative changes. [id number] Cherelle [facility] ORDERABL ES Final Result documented in this encounter Visit Diagnoses Diagnosis Pain and swelling of right wrist Pain and swelling of right wrist documented in this encounter Care Teams Slitter Creaser Slotter Helper Relationship Specialty Start Date End Date Kisha Weaver, IVY [facility] [address] [place] [address] PCP - General NURSE PRACTITIONER 05/28/13 documented as of this encounter
--- OUTSIDE RECORDS SUMMARY | 2024-10-23 18:52 | XMS_ITS | Encounter Summary ---
Author Organization [facility] Address [address] [place] [address] Care Team Providers Care Freezer Worker Name Role Phone IVY Beard Sr., Michael Dave Primary Care Pro vider Encounter Details Date Type Department Care Team (Latest Contact Info) Description 10/27/2002 Outpatient Historical [facility] Orthopedics- [address] [place] [address] FX UPPER END TIBIA-CLOSE (Primary Dx) Social History Tobacco Use Types Packs/Day Years Used Date Smoking Tobacco: Never Assessed Comments Unknown Sex and Gender Information Value Date Recorded Sex Assigned at Not on file Legal Sex Female 3:11 AM SOFT DRINK POWDER MIXER Gender Identity Not on file Sexual Orientation Not on file documented as of this encounter Plan of Treatment Not on file documented as of this encounter Visit Diagnoses Diagnosis Closed fracture of upper end of tibia- Primary documented in this encounter Care Teams Freezer Worker Relationship Specialty Start Date End Date Reynaldo Beard Sr., FNP [address] [place] [address] PCP - General NURSE PRACTITIONER 05/28/13 documented as of this encounter
--- NOTE | 2024-10-23 18:53 | XRR_ITS ---
PROCEDURE INFORMATION: Exam: XR Chest Exam date and time: 10/23/2024 7:19 PM Age: 69 years old Clinical indication: Other: AMS; Additional info: AMS; Lethargy; Hypotension; EMS arrival for reported seizure TECHNIQUE: Imaging protocol: Radiologic exam of the chest. Views: 1 view. COMPARISON: CR XR chest 1V portable [id number] 05/13/2021 11:11 AM FINDINGS: Lungs: Some mild elongated and patchy areas in the left lung base. This may represent some atelectasis. Combination atelectasis early pneumonia can not be excluded. Right lung appears clear. Pleural spaces: Unremarkable. No pleural effusion. No pneumothorax. Heart/Mediastinum: Borderline heart size. Stable tortuosity thoracic aorta Bones/joints: S shaped scoliosis with mild degenerative changes. Degenerative changes AC joints left glenohumeral joint. Head of the left humerus appears somewhat low with respect of the glenoid. This can be seen with laxity of the capsule Upper abdomen: XR/XR chest 1V portable [id number] IMPRESSION: 1. Maybe some patchy atelectasis and linear atelectasis base. Combination of atelectasis and pneumonia can not be entirely excluded. 2. Stable heart size. 3. Head of the humerus appears slightly low with respect left glenoid. This can be seen with laxity of the capsule. Correlate clinically
--- NOTE | 2024-10-23 18:53 | CTR_ITS ---
PROCEDURE INFORMATION: Exam: CT Head Without Contrast Exam date and time: 10/23/2024 7:27 PM Age: 69 years old Clinical indication: Altered mental status/memory loss; EMS arrival for possible seizure. Patient hypotensive and lethargic. ; Additional info: AMS, ? seizure TECHNIQUE: Imaging protocol: Computed tomography of the head without contrast. Radiation optimization: All CT scans at this facility use at least one of these dose optimization techniques: automated exposure control; mA and/or kV adjustment per patient size (includes targeted exams where dose is matched to clinical indication); or iterative reconstruction. COMPARISON: No relevant prior studies available. RADIATION DOSE METRICS: Total DLP (mGy-cm): 1026.57 FINDINGS: Brain: Mild atrophic changes. Some mild areas decreased subcortical white density can be seen seen with chronic ischemic change. Maldonado-white differentiation. No evidence acute hemorrhage mass. Faint calcification seen in the area of the cavernous portions of the internal arteries Cerebral ventricles: No ventriculomegaly. Paranasal sinuses: Opacification of the posterior right cells Mastoid air cells: Visualized mastoid air cells are well aerated. Bones: Unremarkable. No acute fracture. Soft tissues: Unremarkable. CT/CT head wo con* [id number] IMPRESSION: 1. Mild atrophic changes. 2. A few small areas decreased signal intensity subcortical white matter density can be seen chronic ischemic change. 3. No acute appearing intracranial abnormality. 4. Opacification right ethmoid air cells.
[2024-10-23 19:19] LABS: Glucose Urine UA Negative (Normal); Nitrate Urine Negative (Negative); Specific Gravity, Urine 1.022 (1.005-1.030)
--- NOTE | 2024-10-23 19:19 | ECG_ITS ---
[facility] Test Date: 2024-10-23 Pat Name: Kelly Kwong Department: Room: Gender: Female Recovery Operator: : [id number] Requested By: Marcelo Whaley Order Number: [id number] Betancourt MD: Kaleigh Flores M.D. Measurements Intervals [place] Rate: 74 P: 7 VA: 138 QRS: -16 QRSD: 126 T: -11 QT: 429 QTc: 479 Interpretive Statements SINUS RHYTHM VOLTAGE CRITERIA FOR LVH [MEETS CRITERIA IN ONE OF: R(aVL), S(V1), R(V5), R(V5/V6)+S(V1)] POSSIBLE ANTERIOR MYOCARDIAL INFARCTION , PROBABLY OLD [30 ms Q WAVE IN V3/V4, OR R < 0.2 mV IN V4] Compared to ECG 05/13/2021 12:19:30 Left ventricular hypertrophy now present Sinus bradycardia no longer present Myocardial infarct finding still present Baseline artifacts, need to repeat Electronically Signed On 10-24-2024 18:55:07 CDT by Kaleigh Flores M.D. [email or web address]
[2024-10-23 19:22] LABS: ABG PCO2 46.0 mmHg (35-45); ABG PH Result 7.41 (7.35-7.45); Add Urine Microscopic? YES; Arterial Blood Gas Hematocrit 36.5 % (37-47); Blood Gas Allen Test Pos; Blood Gas Operator Identificat gerca; Blood Gas Sample Site Brachial, left; Blood Gas Sample Type Arterial; HCO3 ABG 29.2 mmol/L (22-26); PO2 ABG 78.5 mmHg (80.0-100.0)
[2024-10-23 19:23] LABS: Blood Gas LPM 3.5 %; PO2 FiO2 Ratio Arterial Blood 230
[2024-10-23 19:25] LABS: PCP Screen Urine Negative (Negative)
[2024-10-23 19:43] LABS: UA Slide Review UA Slide Review Perf
[2024-10-23 19:54] LABS: Hematocrit 37.3 % (36-47); Hemoglobin 12.10 g/dL (11.27-16.99); Mean Corpuscular HGB Conc 32.4 g/dL (30-55); Mean Corpuscular Hemoglobin 32.1 pg (27-33); Mean Corpuscular Volume 98.9 fl (85-98); Nucleated Red Blood Cells % 0 %; Platelet Count 333 10^3/cmm (157-399); Red Blood Count 3.77 10^6/uL (3.85-5.65); White Blood Count 9.47 10^3/uL (3.29-11.43)
--- NOTE | 2024-10-23 20:04 | W.ED.AMS ---
HPI - Altered Mental Status General: Chief Complaint: Altered Mental Status Stated Complaint: ams; hypotension Time Seen by Provider: 10/23/24 18:38 History of Present Illness: Patient is a 69-year-old female who presented from home with multiple complaints. She reports experiencing three unwitnessed seizures today, though she states it has been 'a long time' since her last seizure prior to today. The patient also reports cough, shortness of breath, and leg swelling. She denies productive cough or fever. She has a history of deep vein thrombosis (DVT) for which she is on Eliquis (apixaban). The patient initially presented with severe hypotension with a blood pressure of 68/32 , requiring three push doses of epinephrine (1 mL of 1:100,000 each time) to stabilize her blood pressure. The patient appears to have been started on anticoagulation approximately one month ago (September 14, 2024). The patient's living conditions are noted to be 'not optimal.' She has received nearly two L of IV fluids prior to arrival. Related Data Home Medications ?Medication ?Instructions ?Recorded ?Confirmed ferrous sulfate 325 mg (65 mg 325 mg PO DAILY 03/15/19 09/22/24 iron) tablet (iron) aspirin 81 mg tablet,delayed 81 mg PO DAILY 07/23/21 09/22/24 release (Adult Aspirin Regimen) calcium PO 07/21/23 09/22/24 Previous Rx's ?Medication ?Instructions ?Recorded amlodipine 2.5 mg tablet 2.5 mg PO DAILY #90 tabs 05/03/24 carvedilol 3.125 mg tablet (Coreg) 3.125 mg PO BID #180 tabs 05/03/24 potassium chloride 10 mEq 10 meq PO DAILY 30 days #30 tabs 07/08/24 tablet,extended release(part/cryst) (Klor-Con M) benazepril 40 mg tablet 40 mg PO DAILY #90 tabs 07/27/24 bumetanide 2 mg tablet See Rx Instructions PO BID #60 tabs 08/18/24 lovastatin 40 mg tablet See Rx Instructions .Route 08/18/24 .COMPLEX 90 days #90 tabs apixaban 5 mg tablet (Eliquis) 5 mg PO BID #180 tabs 09/14/24 aripiprazole 5 mg tablet (Abilify) 5 mg PO DAILY #90 tabs 09/22/24 citalopram 40 mg tablet See Rx Instructions .Route 09/22/24 .COMPLEX #45 tabs clobazam 20 mg tablet (Onfi) 20 mg PO BID #60 tabs 09/22/24 pantoprazole 20 mg tablet,delayed See Rx Instructions .Route 09/22/24 release .COMPLEX #90 tabs Allergies Allergy/AdvReac Type Severity Reaction Status Date / Time carbamazepine (From Allergy itching Verified 09/22/24 09:59 Carbatrol) PFSH ED PFSH: Medical History Hyperlipidemia Hypertension Surgical History History of open reduction and internal fixation (ORIF) procedure Family History Other CAD (coronary artery disease) Social History Smoking and tobacco/nicotine status: never used tobacco/nicotine Second hand smoke exposure: No Alcohol intake: never Substance/Drug Use: never Adopted: No Caregiver/support person: No Lives independently: Yes Do you think of yourself as: Straight/Heterosexual Current gender identity: Female Physical Exam Const: GENERAL APPEARANCE: cooperative, disheveled, lethargic (mildly), ill appearing (mildly) and frail appearing NUTRITIONAL APPEARANCE: obese ORIENTATION/CONSCIOUSNESS: Yes awake, Yes oriented to person, Yes oriented to place and Yes lethargic (mildly); not oriented to time HENMT: COMMON NORMALS: normocephalic, atraumatic and Normal external nose present HEAD & SCALP: normocephalic and atraumatic FACE & SINUS: normal facial exam and face symmetric NOSE: Normal external nose present MOUTH: moist mucous membranes abnormal Details: parched Eye: COMMON NORMALS: Equal, round and reactive pupils present and EOMs intact bilaterally PUPIL: Yes Equal, round and reactive pupils present Resp: COMMON NORMALS: clear to auscultation bilaterally AUSCULTATION: clear to auscultation bilaterally and diminished lung sounds Cardio: COMMON NORMALS: regular rate and regular rhythm RATE: regular rate RHYTHM: regular rhythm Extremity: NARRATIVE EXTREMITY EXAM: Edema and stasis dermatitis bilaterally Neuro: SENSORIUM/ORIENTATION: Yes oriented to person, Yes oriented to place, No oriented to time and Yes lethargic (mildly) Course Vital Signs: Vital signs: Vital Signs Temperature 98.3 F 10/23/24 18:35 Pulse Rate 75 10/23/24 21:30 Respiratory Rate 17 10/23/24 21:30 Blood Pressure 121/72 10/23/24 21:30 Pulse Oximetry 99 10/23/24 21:30 Oxygen Delivery Me thod Room Air 10/23/24 19:14 MDM - Altered Mental Status Medical Decision Making 69-year-old female with altered mental status, improving, and significantly low blood pressure which is also improved. Current blood pressure 130/70. Heart rate 75. She has been hypoxic initially, but currently improved on room air. Potassium is 3.2, sodium 148. Creatinine is 1.1. CK is significantly elevated at 2800. Her first troponin is [address]-T wave changes on EKG she does not complain of chest discomfort. Chest x-ray reveals mild pulmonary vascular congestion and some atelectasis. Her BNP is not remarkable. She has had 3 L of fluid now, which is the equivalent of a sepsis bolus for her. She is not requiring pressors. Hospitalist has evaluated the patient. She will be admitted Lab Data 10/23/24 19:41 10/23/24 19:41 Radiology Impressions Chest X-Ray 10/23/24 18:53 IMPRESSION: 1. Maybe some patchy atelectasis and linear atelectasis base. Combination of atelectasis and pneumonia can not be entirely excluded. 2. Stable heart size. 3. Head of the humerus appears slightly low with respect left glenoid. This can be seen with laxity of the capsule. Correlate clinically Head CT 10/23/24 18:53 IMPRESSION: 1. Mild atrophic changes. 2. A few small areas decreased signal intensity subcortical white matter density can be seen chronic ischemic change. 3. No acute appearing intracranial abnormality. 4. Opacification right ethmoid air cells. Laboratory Results WBC 9.47 10^3/uL (3.29-11.43) 10/23/24 19:41 RBC 3.77 10^6/uL (3.85-5.65) L 10/23/24 19:41 Hgb 12.10 g/dL (11.27-16.99) 10/23/24 19:41 Hct 37.3 % (36-47) 10/23/24 19:41 MCV 98.9 fl (85-98) H 10/23/24 19:41 MCH 32.1 pg (27-33) 10/23/24 19:41 MCHC 32.4 g/dL (30-55) 10/23/24 19:41 RDW 12.8 % (12.1-15.1) 10/23/24 19:41 Plt Count 333 10^3/cmm (157-399) 10/23/24 19:41 MPV 10.2 fL (7.4-10.4) 10/23/24 19:41 Neut % (Auto) 77.1 % 10/23/24 19:41 Lymph % (Auto) 10.5 % 10/23/24 19:41 Charles % (Auto) 11.1 % 10/23/24 19:41 Eos % (Auto) 0.4 % 10/23/24 19:41 Baso % (Auto) 0.5 % 10/23/24 19:41 Neut # (Auto) 7.30 10^3/uL (1.8-7.7) 10/23/24 19:41 Lymph # (Auto) 1.0 10^3/uL (0.8-4.8) 10/23/24 19:41 Charles # (Auto) 1.1 10^3/uL (0.2-0.9) H 10/23/24 19:41 Eos # (Auto) 0.0 10^3/uL (0.0-0.8) 10/23/24 19:41 Baso # (Auto) 0.1 10^3/uL (0.0-0.1) 10/23/24 19:41 Nucleated RBC % (auto) 0 % 10/23/24 19:41 Nucleated RBCs # 0.0 /100WBC 10/23/24 19:41 PT 18.20 SECONDS (12.1-14.9) H 10/23/24 19:41 INR 1.41 (0.8-1.2) H 10/23/24 19:41 APTT 34.3 SECONDS (23.9-36.7) 10/23/24 19:41 Specimen Type Arterial 10/23/24 19:09 Sample Site Brachial, left 10/23/24 19:09 ABG pH 7.41 (7.35-7.45) 10/23/24 19:09 ABG pCO2 46.0 mmHg (35-45) H 10/23/24 19:09 ABG pO2 78.5 mmHg (80.0-100.0) L 10/23/24 19:09 ABG PO2/FiO2 Ratio 230 10/23/24 19:09 ABG HCO3 29.2 mmol/L (22-26) H 10/23/24 19:09 ABG Base Excess 3.9 mmol/L (-2.0-2.0) H 10/23/24 19:09 Gabe Test Pos 10/23/24 19:09 Hematocrit 36.5 % (37-47) L 10/23/24 19:09 O2 Delivery Device Nc 10/23/24 19:09 O2 Liters/Min 3.5 % 10/23/24 19:09 FiO2 34.0 % 10/23/24 19:09 Environmental Services Manager ID gerca 10/23/24 19:09 Sodium 148 mmol/L (136-145) H 10/23/24 19:41 Potassium 3.2 mmol/L (3.5-5.1) L 10/23/24 19:41 Chloride 106 mmol/L (98-107) 10/23/24 19:41 Carbon Dioxide 26 mmol/L (22-29) 10/23/24 19:41 Anion Gap 19.2 (5-19) H 10/23/24 19:41 BUN 13 mg/dL (8-23) 10/23/24 19:41 Creatinine 1.1 mg/dL (0.5-0.9) H 10/23/24 19:41 GFR Calculation 49.4 mL/min (90-130) L 10/23/24 19:41 Glucose 92 mg/dL (65-115) 10/23/24 19:41 Calculated Osmolality 306 mOsm/kg (285-295) H 10/23/24 19:41 Lactic Acid 1.6 mmol/L (0.5-2.2) 10/23/24 19:41 Calcium 9.1 mg/dL (8.5-10.5) 10/23/24 19:41 Phosphorus 2.7 mg/dL (2.5-4.5) 10/23/24 19:41 Magnesium 2.2 mg/dL (1.7-2.3) 10/23/24 19:41 Total Bilirubin 0.4 mg/dL (0.15-1.2) 10/23/24 19:41 AST 70 U/L (0-32) H 10/23/24 19:41 ALT 49 U/L (0-33) H 10/23/24 19:41 Alkaline Phosphatase 66 U/L (35-105) 10/23/24 19:41 Creatine Kinase 2782 U/L (26-192) H* 10/23/24 19:41 Troponin T Baseline 116 ng/L (0-10) H* 10/23/24 19:41 C-Reactive Protein 5.2 mg/L (0.0-4.9) H 10/23/24 19:41 NT-Pro-B Natriuret Pep 222 pg/mL (0-125) H 10/23/24 19:41 Total Protein 5.5 g/dL (6.6-8.7) L 10/23/24 19:41 Albumin 3.4 g/dL (3.5-5.2) L 10/23/24 19:41 Globulin 2.1 g/dL (1.3-4.6) 10/23/24 19:41 Urine Color Yellow (Yellow) 10/23/24 19:09 Urine Appearance Cloudy (CLEAR) A 10/23/24 19:09 Urine pH 5.5 (5-7) 10/23/24 19:09 Ur Specific [place] 1.022 (1.005-1.030) 10/23/24 19:09 Urine Protein 2+ (Negative) A 10/23/24 19:09 Urine Glucose (UA) Negative (Normal) 10/23/24 19:09 Urine Ketones Trace (Negative) 10/23/24 19:09 Urine Blood 3+ (Negative) A 10/23/24 19:09 Urine Nitrate Negative (Negative) 10/23/24 19:09 Urine Bilirubin Negative (Negative) 10/23/24 19:09 Urine Urobilinogen 1.0 mg/dL (Negative) 10/23/24 19:09 Ur Leukocyte Esterase Negative (Negative) 10/23/24 19:09 Urine RBC 11-20 /hpf (0-2) H 10/23/24 19:09 Urine WBC 0-5 /hpf (0-5) 10/23/24 19:09 Ur Squamous Epith Cells 0-5 /hpf (0-5) 10/23/24 19:09 Amorphous Sediment Not Reportable 10/23/24 19:09 Urine Bacteria None seen /hpf (NONE) 10/23/24 19:09 Hyaline Casts 117.10 /lpf 10/23/24 19:09 Urine Opiates Screen Negative ng/mL (Negative) 10/23/24 19:09 Ur Barbiturates Screen Negative ng/mL (Negative) 10/23/24 19:09 Ur Phencyclidine Scrn Negative ng/mL (Negative) 10/23/24 19:09 Ur Amphetamines Screen Negative ng/mL (Negative) 10/23/24 19:09 U Benzodiazepines Scrn Positive ng/mL (Negative) H 10/23/24 19:09 Urine Cocaine Screen Negative ng/mL (Negative) 10/23/24 19:09 U Marijuana (THC) Screen Negative ng/mL (Negative) 10/23/24 19:09 Ethyl Alcohol < 10 mg/dL (0-10) 10/23/24 19:41 All radiology interpretation(s) finalized by discharge Discharge Plan Discharge Patient Disposition: Admitted As Inpatient Clinical Impression: Rhabdomyolysis, Elevated troponin, Syncope Condition: Fair Coding Level of Care Code ED Telegraphic Service Dispatcher for Shayy Guardado
[2024-10-23 20:12] LABS: INR 1.41 (0.8-1.2); Prothrombin Time 18.20 SECONDS (12.1-14.9)
[2024-10-23 20:13] LABS: Partial Thromboplastin Time 34.3 SECONDS (23.9-36.7)
[2024-10-23 20:17] LABS: Alanine Aminotransferase 49 U/L (0-33); Albumin Level 3.4 g/dL (3.5-5.2); Alkaline Phosphatase 66 U/L (35-105); Anion Gap 19.2 (5-19); Aspartate Amino Transferase 70 U/L (0-32); Blood Urea Nitrogen 13 mg/dL (8-23); Calcium 9.1 mg/dL (8.5-10.5); Carbon Dioxide 26 mmol/L (22-29); Chloride 106 mmol/L (98-107); Globulin 2.1 g/dL (1.3-4.6); Glucose 92 mg/dL (65-115); Magnesium 2.2 mg/dL (1.7-2.3); Osmolality Calculated 306 mOsm/kg (285-295); Potassium 3.2 mmol/L (3.5-5.1); Sodium 148 mmol/L (136-145); Total Protein 5.5 g/dL (6.6-8.7)
[2024-10-23 20:18] LABS: Lactic Sepsis W/Reflex 1.6 mmol/L (0.5-2.2)
[2024-10-23 20:20] LABS: Alcohol Level < 10 mg/dL (0-10); Creatinine Clr Calc Pharmacy 52.9510; Troponin(5th) Baseline 116 ng/L (0-10)
[2024-10-23 20:59] LABS: NT Pro B Type Natriuretic Pept 222 pg/mL (0-125)
--- NOTE | 2024-10-23 22:01 | CTR_ITS ---
PROCEDURE INFORMATION: Exam: CTA Chest With Contrast Exam date and time: 10/23/2024 10:14 PM Age: 69 years old Clinical indication: Abnormal findings; Abnormal lab test; Bloating; Abnormal diagnostic tests; Abnormal wbc; Shortness of breath; SOB with hypoxemia and hypotension. Abd distention with hematuria. ; Additional info: SOB, distention, pain TECHNIQUE: Imaging protocol: Computed tomographic angiography of the chest with contrast. Exam focused on the arteries. 3D rendering (Not supervised by radiologist): MIP and/or 3D reconstructed images were created by the technologist. Radiation optimization: All CT scans at this facility use at least one of these dose optimization techniques: automated exposure control; mA and/or kV adjustment per patient size (includes targeted exams where dose is matched to clinical indication); or iterative reconstruction. Contrast material: OMNI 350; Contrast volume: 100 ml; Contrast route: INTRAVENOUS (IV); COMPARISON: CR (CHEST, ) 10/23/2024 7:19 PM RADIATION DOSE METRICS: Total DLP (mGy-cm): 1395.14 FINDINGS: Pulmonary arteries: Compromised evaluation of the bilateral lower lobe subsegmental arterie due to artifact. Main pulmonary artery, right left pulmonary arteries, lobar arteries, right middle lobe, right upper lobe, left upper lobe and left lingular arteries normal. Aorta: Mild atherosclerosis. Mild ectasia ascending thoracic aorta measuring 3.6 cm in diameter Lungs: Some motion artifact involving the lower lobes. There are scattered calcified granulomas. Areas of atelectasis lower lobes. Areas ground-glass density lower lobes suspicious for pneumonia Pleural spaces: Unremarkable. No pneumothorax. No pleural effusion. Heart: Borderline heart size. Calcification mitral annulus. Lymph nodes: Unremarkable. No enlarged lymph nodes. Bones/joints: Moderate compression fractures indeterminate age per probably nonacute bodies T9 and T10. Degenerative changes. Soft tissues: Unremarkable. PROCEDURE INFORMATION: Exam: CT Abdomen And Pelvis With Contrast Exam date and time: 10/23/2024 10:14 PM Age: 69 years old Clinical indication: Abnormal findings; Abnormal lab test; Bloating; Abnormal diagnostic tests; Abnormal wbc; Shortness of breath; SOB with hypoxemia and hypotension. Abd distention with hematuria. ; Additional info: SOB, distention, pain TECHNIQUE: Imaging protocol: Computed tomography of the abdomen and pelvis with contrast. Radiation optimization: All CT scans at this facility use at least one of these dose optimization techniques: automated exposure control; mA and/or kV adjustment per patient size (includes targeted exams where dose is matched to clinical indication); or iterative reconstruction. Contrast material: OMNI 350; Contrast volume: 100 ml; Contrast route: INTRAVENOUS (IV); COMPARISON: CR XR KUB portable [id number] 05/07/2021 3:08 PM RADIATION DOSE METRICS: Total DLP (mGy-cm): 1395.14 FINDINGS: Liver: Normal. No mass. Gallbladder and biliary ducts: Normal. No calcified stones. No ductal dilation. Pancreas: Normal. No ductal dilation. Spleen: Normal. No splenomegaly. Adrenal glands: Normal. No mass. Kidneys and ureters: Simple cysts both kidneys. No hydronephrosis . No follow-up imaging recommendedBenign simple renal cyst requiring no follow-up. (Reference: Librado) References: Librado PARR, et al. Bosniak Classification of Cystic Renal Masses, Version 2019: An Update Proposal and Needs Assessment. Radiology. 2019;292(2):475-488. Stomach and bowel: Scattered contrast in the stomach, small bowel colon. Stomach and small bowel. Mild diverticulosis of the sigmoid. Appendix: No evidence of appendicitis. Intraperitoneal space: Unremarkable. No free air. No significant fluid collection. Vasculature: Mild atherosclerosis. No abdominal aortic aneurysm. Lymph nodes: Unremarkable. No enlarged lymph nodes. Urinary bladder: Contains Hogan catheter. Wall thickening measuring up to 9 1 mm thickness with some perivesical stranding. Findings those of cystitis/UTI. Reproductive: Uterus unremarkable. Simple appearing cyst measuring 2.8 cm in diameter left ovary Bones/joints: No previous lumbar spine images. Report states previous compression fractures. Present study shows moderate 3 or disc posterior 1 Soft tissues: Small umbilical hernia fat. CT/CT angio chest w abd pel w con IMPRESSION: 1. Compromised evaluation of the lower lobe subsegmental arteries bilaterally due to artifact. Otherwise no demonstrable pulmonary emboli. 2. Mild cardiomegaly. Calcification of the annulus 3. Mild atherosclerosis thoracic aorta ectasia ascending thoracic. 4. Age indeterminate but probably old moderate compression fractures of the T9 and T10. 5. Atelectasis lower lobes. Ground-glass density seen in the lower lobes suspicious for pneumonia. IMPRESSION: 1. Wall thickening urinary bladder with surrounding stranding. Findings consistent with cystitis/UTI. Contains a Hogan catheter. 2. Bilateral simple cysts. No follow-up imaging recommended. 3. Mild diverticulosis sigmoid 4. 2.8 cm simple appearing cyst left ovary. 5. Umbilical hernia containing fat. 6. Degenerative changes and compression deformities/fractures described previously and are probably chronic . However no images available to compare
[2024-10-23] MEDS: iohexol 350 mg/mL 500 mL Btl (per mL) IV (22:17)
--- NOTE | 2024-10-23 22:37 | PC.NURSE ---
Verbal order from Dr. Napier to administer pt night dose of Clobazam 20mg due to use not having medication in our pyxis at this time. This nurse and Elizabeth, ELLEN counted Clobazam at 19 pills. After administration of Clobazam, there is now 18 pills.
[2024-10-23 22:51] LABS: Troponin 5 2HR 110.2 ng/L (0-10); Troponin 5 2HR Delta -5.8 ABS# (0-10)
[2024-10-24] VITALS (80 sets, daily range): BP systolic 95–152; BP diastolic 54–100; PULSE 61–127; RESP 10–37; TEMP 35.8–37.2; O2SAT 65–100; BMI 39.1
--- NOTE | 2024-10-24 00:32 | ECG_ITS ---
PAK Test Date: 2024-10-24 Pat Name: Kelly Kwong Department: Room: ICU07 Gender: Female [employer]: : [id number] Requested By: Marcelo Whaley Order Number: [id number] Betancourt MD: Kaleigh Flores M.D. Measurements Intervals [place] Rate: 72 P: 9 MS: 151 QRS: -11 QRSD: 90 T: -11 QT: 408 QTc: 447 Interpretive Statements SINUS RHYTHM WITH OCCASIONAL VENTRICULAR PREMATURE COMPLEXES MODERATE VOLTAGE CRITERIA FOR LVH, CONSIDER NORMAL VARIANT [MEETS CRITERIA IN ONE OF: R(aVL), S(V1), R(V5), R(V5/V6)+S(V1)] Compared to ECG 10/23/2024 19:19:09 Ventricular premature complex(es) now present Myocardial infarct finding no longer present Heavy baseline artifacts; Need to repeat the study. Electronically Signed On 10-24-2024 19:02:49 CDT by Kaleigh Flores M.D. [email or web address]
[2024-10-24 01:00] LABS: NT Pro B Type Natriuretic Pept 218 pg/mL (0-125); Procalcitonin 0.14 ng/mL (0-0.5)
--- NOTE | 2024-10-24 01:13 | PC.NURSE ---
Clobazam with patient on arrival. Counted verified with ER nurse, Kelly Hall. 18 total, placed in patient bin.
[2024-10-24] MEDS: levETIRAcetam 500 MG/100 ML PREMIX 400 MG IV ×2 (01:18→13:39)
[2024-10-24 01:28] LABS: Troponin 5 6HR 106.4 ng/L (0-10); Troponin 5 6HR Delta -9.6 ng/L (0-12)
[2024-10-24 04:36] LABS: Hematocrit 37.1 % (36-47); Hemoglobin 12.00 g/dL (11.27-16.99); Mean Corpuscular HGB Conc 32.3 g/dL (30-55); Mean Corpuscular Hemoglobin 31.9 pg (27-33); Mean Corpuscular Volume 98.7 fl (85-98); Nucleated Red Blood Cells % 0 %; Platelet Count 307 10^3/cmm (157-399); Red Blood Count 3.76 10^6/uL (3.85-5.65); White Blood Count 6.93 10^3/uL (3.29-11.43)
[2024-10-24 05:07] LABS: Cholesterol 148 mg/dL (0-200); HDL Cholesterol 46 mg/dL (60-100); Thyroid Stimulating Hormone 0.55 uIU/mL (0.27-4.20); Triglycerides 108 mg/dL (0-150)
[2024-10-24 05:08] LABS: Alanine Aminotransferase 108 U/L (0-33); Albumin Level 3.4 g/dL (3.5-5.2); Alkaline Phosphatase 72 U/L (35-105); Anion Gap 14.0 (5-19); Aspartate Amino Transferase 257 U/L (0-32); Blood Urea Nitrogen 11 mg/dL (8-23); Calcium 9.2 mg/dL (8.5-10.5); Carbon Dioxide 28 mmol/L (22-29); Chloride 103 mmol/L (98-107); Creatinine Clr Calc Pharmacy 65.0344; Globulin 2.1 g/dL (1.3-4.6); Glucose 96 mg/dL (65-115); Osmolality Calculated 293 mOsm/kg (285-295); Potassium 3.0 mmol/L (3.5-5.1); Sodium 142 mmol/L (136-145); Total Protein 5.5 g/dL (6.6-8.7)
[2024-10-24 05:24] LABS: Estmated Average Glucose 105; Hemoglobin A1C 5.3 % (4.0-6.0)
[2024-10-24] MEDS: CLOBAZAM 20 MG 20 EACH PO ×2 (09:11→17:33)
[2024-10-24] MEDS: nystatin 100,000 unit/mL UDC 5 mL 100000 UNIT PO ×3 (09:23→20:57)
--- NOTE | 2024-10-24 11:48 | PM.HP ---
Providers/Chief Complaint Admitting Physician: Spencer Napier MD Primary Care Provider: IVY Serra Chief Complaint: ams; hypotension History of Present Illness Ms. Kwong is a 69-year-old lady with a past medical history of seizure disorder, lower extremity DVT currently on Eliquis, who was brought to the hospital overnight after being found down at home. Patient was last seen normal at around 11:30 AM by her jhwsaa-ys-doy who lives on the same property and helps take care of the patient. At around 5:30 PM as one of her friends was driving by her home, she noticed that the patient's front door was open and patient was lying on the floor. It is unclear if patient was awake and alert at the time or not. Reportedly the friend called patient's brother who lives on the same property and then EMS was called. When EMS arrived patient was hypotensive and did receive 2 doses of epinephrine. There was no CPR. Patient recalls falling at home. States that just before the event she felt her heart was racing and then she fell to the floor. She does not recall the events between being down and being found later on. She remembers waking up in the hospital. Patient has a history of seizure disorder and currently maintained on clobazam 20 mg twice daily. She follows with Dr. Bustos as an outpatient and has been on several other antiseizure medications in the past. Possibility of breakthrough seizure is considered and Keppra was started overnight. Her rojlwe-bk-frl reports a similar episode about 1 week ago where patient was sitting in her chair and then slid out as if she had no strength. Her family helped her back into the chair. Bdtqep-hv-evn additionally reports that over the past 3 to 4 months patient has been having increasing weakness which has particularly worsened in the past 1 week. At baseline patient ambulates with a walker, is able to get to the kitchen, fix her own food etc. however over the past week she is found to have an increased weakness. On exam today patient is alert awake and oriented. She is laying in bed and is unable to lift her left lower extremity off the bed when instructed to do so. She does try to make an effort however is unable to lift the extremity against gravity. The right lower extremity is also weak however faring better than the left lower extremity on exam. While she is able to lift it off the bed she is unable to hold the extremity for longer than 3 seconds. She has no known history of a stroke. Her lower extremity weakness was attributed by the family to her recent discovery of DVT. They report that she had been undergoing evaluation for lower extremity swelling for the past 3 to 4 months and eventually a DVT was discovered for which she is currently on Eliquis. Family attributed the lower extremity weakness to swelling and the DVT. Review of Systems General: Reports: ROS unobtainable due to medical condition and ROS unobtainable due to mental status Medications/Allergies Home Medications ?Medication ?Instructions ?Recorded ?Confirmed ?Last Taken ?Type ferrous sulfate 325 mg (65 mg 325 mg PO DAILY 03/15/19 10/24/24 10/23/24 History iron) tablet (iron) aspirin 81 mg tablet,delayed 81 mg PO DAILY 07/23/21 10/24/24 10/23/24 History release (Adult Aspirin Regimen) calcium 500 mg PO BID 07/21/23 10/24/24 10/23/24 History amlodipine 2.5 mg tablet 2.5 mg PO DAILY #90 tabs 05/03/24 10/24/24 Unknown Rx carvedilol 3.125 mg tablet (Coreg) 3.125 mg PO BID #180 tabs 05/03/24 10/24/24 10/23/24 Rx potassium chloride 10 mEq 10 meq PO DAILY 30 days #30 tabs 07/08/24 10/24/24 10/23/24 Rx tablet,extended release(part/cryst) (Klor-Con M) benazepril 40 mg tablet 40 mg PO DAILY #90 tabs 07/27/24 10/24/24 10/23/24 Rx lovastatin 40 mg tablet See Rx Instructions .Route 08/18/24 10/24/24 10/23/24 Rx .COMPLEX 90 days #90 tabs apixaban 5 mg tablet (Eliquis) 5 mg PO BID #180 tabs 09/14/24 10/24/24 10/23/24 Rx aripiprazole 5 mg tablet (Abilify) 5 mg PO DAILY #90 tabs 09/22/24 10/24/24 10/23/24 Rx citalopram 40 mg tablet See Rx Instructions .Route 09/22/24 10/24/24 10/23/24 Rx .COMPLEX #45 tabs clobazam 20 mg tablet (Onfi) 20 mg PO BID #60 tabs 09/22/24 10/24/24 10/24/24 Rx pantoprazole 20 mg tablet,delayed See Rx Instructions .Route 09/22/24 10/24/24 10/23/24 Rx release .COMPLEX #90 tabs Allergies Allergy/AdvReac Type Severity Reaction Status Date / Time carbamazepine (From Allergy itching Verified 09/22/24 09:59 Carbatrol) PFSH Acute PFSH: Medical History Hyperlipidemia Hypertension Surgical History History of open reduction and internal fixation (ORIF) procedure Family History Other CAD (coronary artery disease) Social History Smoking and tobacco/nicotine status: never used tobacco/nicotine Second hand smoke exposure: No Alcohol intake: never Substance/Drug Use: never Adopted: No Caregiver/support person: No Lives independently: Yes Do you think of yourself as: Straight/Heterosexual Current gender identity: Female Vitals/I&O/Wt Last Vital Signs Temp 96.5 F L 10/24/24 08:00 Pulse 69 10/24/24 08:00 Resp 17 10/24/24 08:00 BP 133/72 10/24/24 08:00 Pulse Ox 86 L 10/24/24 08:00 O2 Del Method Room Air 10/24/24 07:45 O2 Flow Rate 2 10/24/24 00:28 10/23/24 10/24/24 10/24/24 22:59 06:59 14:59 Intake Total 1240 / 1240 30 / 30 Output Total 550 / 550 Balance 690 / 690 30 / 30 Weight last 48 hrs Weight 97 kg Weight 97 kg Weight 96.162 kg Physical Exam Narrative: General: No acute distress, AO x3 HEENT: PERRLA, pupils bilaterally equal and reactive, pallors not present Chest: Normal vesicular breath sounds, no added sounds, equal good air entry bilaterally CVS: S1-S2 regular, no murmurs, no tachycardia, no gallops, no rubs Abdomen: Soft, nontender, no organomegaly, bowel sounds present Neuro: Alert awake and oriented x 3. No facial asymmetry noted. RESULT SUMMARY: points : 5 NIH Stroke Scale INPUTS: 1A: Level of consciousness ?> 0 = Alert; keenly responsive 1B: Ask month and age ?> 0 = Both questions right 1C: 'Blink eyes' & 'squeeze hands' ?> 0 = Performs both tasks 2: Horizontal extraocular movements ?> 0 = Normal 3: Visual bone ?> 0 = Normal 4: Facial palsy ?> 0 = Normal symmetry 5A: Left arm motor drift ?> 0 = No drift for 10 seconds 5B: Right arm motor drift ?> 0 = No drift for 10 seconds 6A: Left leg motor drift ?> +3: No effort against gravity 6B: Right leg motor drift ?> +2: Drifts, hits bed 7: Limb Ataxia ?> 0 = No ataxia 8: Sensation ?> 0 = Normal; no sensory loss 9: Language/aphasia ?> 0 = Normal; no aphasia 10: Dysarthria ?> 0 = Normal 11: Extinction/inattention ?> 0 = No abnormality Data 10/24/24 03:58 10/24/24 03:58 Micro: Microbiology 10/23/24 23:54 Blood Culture - Preliminary Blood SPECIMEN COLLECTED 10/23/24 23:57 Blood Culture - Preliminary Blood SPECIMEN COLLECTED 10/23/24 19:46 Blood Culture - Preliminary Blood SPECIMEN COLLECTED 10/23/24 19:41 Blood Culture - Preliminary Blood SPECIMEN COLLECTED Other data: Radiology Impressions Chest X-Ray 10/23/24 18:53 IMPRESSION: 1. Maybe some patchy atelectasis and linear atelectasis base. Combination of atelectasis and pneumonia can not be entirely excluded. 2. Stable heart size. 3. Head of the humerus appears slightly low with respect left glenoid. This can be seen with laxity of the capsule. Correlate clinically Head CT 10/23/24 18:53 IMPRESSION: 1. Mild atrophic changes. 2. A few small areas decreased signal intensity subcortical white matter density can be seen chronic ischemic change. 3. No acute appearing intracranial abnormality. 4. Opacification right ethmoid air cells. Chest/Abdomen/Pelvis CT 10/23/24 22:01 IMPRESSION: 1. Compromised evaluation of the lower lobe subsegmental arteries bilaterally due to artifact. Otherwise no demonstrable pulmonary emboli. 2. Mild cardiomegaly. Calcification of the annulus 3. Mild atherosclerosis thoracic aorta ectasia ascending thoracic. 4. Age indeterminate but probably old moderate compression fractures of the T9 and T10. 5. Atelectasis lower lobes. Ground-glass density seen in the lower lobes suspicious for pneumonia. IMPRESSION: 1. Wall thickening urinary bladder with surrounding stranding. Findings consistent with cystitis/UTI. Contains a Hogan catheter. 2. Bilateral simple cysts. No follow-up imaging recommended. 3. Mild diverticulosis sigmoid 4. 2.8 cm simple appearing cyst left ovary. 5. Umbilical hernia containing fat. 6. Degenerative changes and compression deformities/fractures described previously and are probably chronic . However no images available to compare Laboratory Results WBC 6.93 10^3/uL (3.29-11.43) 10/24/24 03:58 RBC 3.76 10^6/uL (3.85-5.65) L 10/24/24 03:58 Hgb 12.00 g/dL (11.27-16.99) 10/24/24 03:58 Hct 37.1 % (36-47) 10/24/24 03:58 MCV 98.7 fl (85-98) H 10/24/24 03:58 MCH 31.9 pg (27-33) 10/24/24 03:58 MCHC 32.3 g/dL (30-55) 10/24/24 03:58 RDW 13.0 % (12.1-15.1) 10/24/24 03:58 Plt Count 307 10^3/cmm (157-399) 10/24/24 03:58 MPV 10.3 fL (7.4-10.4) 10/24/24 03:58 Neut % (Auto) 66.3 % 10/24/24 03:58 Lymph % (Auto) 19.9 % 10/24/24 03:58 Powell % (Auto) 11.4 % 10/24/24 03:58 Eos % (Auto) 1.4 % 10/24/24 03:58 Baso % (Auto) 0.7 % 10/24/24 03:58 Neut # (Auto) 4.59 10^3/uL (1.8-7.7) 10/24/24 03:58 Lymph # (Auto) 1.4 10^3/uL (0.8-4.8) 10/24/24 03:58 Powell # (Auto) 0.8 10^3/uL (0.2-0.9) 10/24/24 03:58 Eos # (Auto) 0.1 10^3/uL (0.0-0.8) 10/24/24 03:58 Baso # (Auto) 0.1 10^3/uL (0.0-0.1) 10/24/24 03:58 Nucleated RBC % (auto) 0 % 10/24/24 03:58 Nucleated RBCs # 0.0 /100WBC 10/24/24 03:58 PT 18.20 SECONDS (12.1-14.9) H 10/23/24 19:41 INR 1.41 (0.8-1.2) H 10/23/24 19:41 APTT 34.3 SECONDS (23.9-36.7) 10/23/24 19:41 Specimen Type Arterial 10/23/24 19:09 Sample Site Brachial, left 10/23/24 19:09 ABG pH 7.41 (7.35-7.45) 10/23/24 19:09 ABG pCO2 46.0 mmHg (35-45) H 10/23/24 19:09 ABG pO2 78.5 mmHg (80.0-100.0) L 10/23/24 19:09 ABG PO2/FiO2 Ratio 230 10/23/24 19:09 ABG HCO3 29.2 mmol/L (22-26) H 10/23/24 19:09 ABG Base Excess 3.9 mmol/L (-2.0-2.0) H 10/23/24 19:09 Gabe Test Pos 10/23/24 19:09 Hematocrit 36.5 % (37-47) L 10/23/24 19:09 O2 Delivery Device Nc 10/23/24 19:09 O2 Liters/Min 3.5 % 10/23/24 19:09 FiO2 34.0 % 10/23/24 19:09 Commercial Green Retrofit Architect ID [email or web address] 10/23/24 19:09 Sodium 142 mmol/L (136-145) 10/24/24 03:58 Potassium 3.0 mmol/L (3.5-5.1) L 10/24/24 03:58 Chloride 103 mmol/L (98-107) 10/24/24 03:58 Carbon Dioxide 28 mmol/L (22-29) 10/24/24 03:58 Anion Gap 14.0 (5-19) 10/24/24 03:58 BUN 11 mg/dL (8-23) 10/24/24 03:58 Creatinine 0.9 mg/dL (0.5-0.9) 10/24/24 03:58 GFR Calculation 62.3 mL/min (90-130) L 10/24/24 03:58 Glucose 96 mg/dL (65-115) 10/24/24 03:58 Estimat Average Glucose 105 10/24/24 03:58 Hemoglobin A1c 5.3 % (4.0-6.0) 10/24/24 03:58 Calculated Osmolality 293 mOsm/kg (285-295) 10/24/24 03:58 Lactic Acid 1.6 mmol/L (0.5-2.2) 10/23/24 19:41 Calcium 9.2 mg/dL (8.5-10.5) 10/24/24 03:58 Phosphorus 2.7 mg/dL (2.5-4.5) 10/23/24 19:41 Magnesium 2.2 mg/dL (1.7-2.3) 10/23/24 19:41 Total Bilirubin 0.5 mg/dL (0.15-1.2) 10/24/24 03:58 AST 257 U/L (0-32) H 10/24/24 03:58 ALT 108 U/L (0-33) H 10/24/24 03:58 Alkaline Phosphatase 72 U/L (35-105) 10/24/24 03:58 Creatine Kinase 2782 U/L (26-192) H* 10/23/24 19:41 Troponin T Baseline 116 ng/L (0-10) H* 10/23/24 19:41 Troponin T 120 Minute 110.2 ng/L (0-10) H 10/23/24 21:42 Delta Troponin T -5.8 ABS# (0-10) L 10/23/24 21:42 Troponin T Hi Sens 6Hr 106.4 ng/L (0-10) H 10/24/24 00:37 Troponin T Hi Sens 6Hr Delta -9.6 ng/L (0-12) L 10/24/24 00:37 C-Reactive Protein 5.2 mg/L (0.0-4.9) H 10/23/24 19:41 NT-Pro-B Natriuret Pep 218 pg/mL (0-125) H 10/23/24 23:54 Total Protein 5.5 g/dL (6.6-8.7) L 10/24/24 03:58 Albumin 3.4 g/dL (3.5-5.2) L 10/24/24 03:58 Globulin 2.1 g/dL (1.3-4.6) 10/24/24 03:58 Triglycerides 108 mg/dL (0-150) 10/24/24 03:58 Cholesterol 148 mg/dL (0-200) 10/24/24 03:58 LDL Cholesterol, Calc 80 mg/dL (50-129) 10/24/24 03:58 HDL Cholesterol 46 mg/dL (60-100) L 10/24/24 03:58 LDL/HDL Ratio 1.74 RATIO (0.00-3.22) 10/24/24 03:58 Cholesterol/HDL Ratio 3.22 mg/dL (0.0-4.40) 10/24/24 03:58 Procalcitonin 0.14 ng/mL (0-0.5) 10/23/24 23:54 TSH 0.55 uIU/mL (0.27-4.20) 10/24/24 03:58 Urine Color Yellow (Yellow) 10/23/24 19:09 Urine Appearance Cloudy (CLEAR) A 10/23/24 19:09 Urine pH 5.5 (5-7) 10/23/24 19:09 Ur Specific Santa [place] 1.022 (1.005-1.030) 10/23/24 19:09 Urine Protein 2+ (Negative) A 10/23/24 19:09 Urine Glucose (UA) Negative (Normal) 10/23/24 19:09 Urine Ketones Trace (Negative) 10/23/24 19:09 Urine Blood 3+ (Negative) A 10/23/24 19:09 Urine Nitrate Negative (Negative) 10/23/24 19:09 Urine Bilirubin Negative (Negative) 10/23/24 19:09 Urine Urobilinogen 1.0 mg/dL (Negative) 10/23/24 19:09 Ur Leukocyte Esterase Negative (Negative) 10/23/24 19:09 Urine RBC 11-20 /hpf (0-2) H 10/23/24 19:09 Urine WBC 0-5 /hpf (0-5) 10/23/24 19:09 Ur Squamous Epith Cells 0-5 /hpf (0-5) 10/23/24 19:09 Amorphous Sediment Not Reportable 10/23/24 19:09 Urine Bacteria None seen /hpf (NONE) 10/23/24 19:09 Hyaline Casts 117.10 /lpf 10/23/24 19:09 Urine Opiates Screen Negative ng/mL (Negative) 10/23/24 19:09 Ur Barbiturates Screen Negative ng/mL (Negative) 10/23/24 19:09 Ur Phencyclidine Scrn Negative ng/mL (Negative) 10/23/24 19:09 Ur Amphetamines Screen Negative ng/mL (Negative) 10/23/24 19:09 U Benzodiazepines Scrn Positive ng/mL (Negative) H 10/23/24 19:09 Urine Cocaine Screen Negative ng/mL (Negative) 10/23/24 19:09 U Marijuana (THC) Screen Negative ng/mL (Negative) 10/23/24 19:09 Ethyl Alcohol < 10 mg/dL (0-10) 10/23/24 19:41 A&P Assessment and plan 1. Breakthrough seizure: 2. Rhabdomyolysis: 3. Elevated troponin: 4. Chronic deep vein thrombosis (DVT): 5. 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 Stroke: 7. Syncope: Plan: Patient is a 69-year-old lady with past medical history as outlined above who is presenting to the hospital today after having had what appears to be a syncopal episode at home. Patient was reportedly down at home sometime between 11:30 AM to 5:30 PM Patient reports some palpitations prior to the event. She remembers falling to the floor but no events thereafter. Possibilities of this event include a breakthrough seizure. She is continued on clobazam 20 mg twice daily and Keppra has been added to her regimen. Discussed with her outpatient neurologist, EEG will likely be completed as an outpatient. Other possibility is that of a stroke. On exam today NIH stroke scale of 5. Patient has asymmetric lower extremity weakness. She is unable to lift the left lower extremity off the bed, the right lower extremity has a drift and falls to the bed. CT of the head shows chronic microvascular changes. Will check lipid panel and HbA1c per stroke guidelines. Patient is currently on apixaban 5 mg twice daily and aspirin 81 mg daily which we will continue. Carotid Doppler and echocardiogram have been ordered. Timeline of stroke at this time appears to be unknown given that [id number]-tbe reports a similar episode of falling out of chair 1 week ago and then just continuous weakness thereafter. Patient has evidence of rhabdomyolysis with elevated CPK. Encouraged oral hydration over IV hydration as patient has chronic lower extremity edema. Recheck CPK with a.m. labs. Family reports that patient appears to be slightly confused and not back to baseline yet. She is able to answer all orientation questions correctly. She may be postictal which is why breakthrough seizure is not excluded at this time. Noted to have elevated troponins. Baseline at 116, downtrending at 0216 hrs. She denies any chest pain though does report some palpitations prior to the events yesterday. Possibly may have had an arrhythmia. Will continue telemetry monitoring in the hospital. Echocardiogram is currently pending at this time. Will follow to assess for ejection fraction, diastolic function, any regional wall motion abnormalities. Elevated troponins may be related to type II LA, stroke, rhabdomyolysis. History of bilateral lower extremity edema related to DVT. Continue Eliquis 5 mg twice daily PT OT and speech therapy assessments ordered. 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
--- NOTE | 2024-10-24 18:35 | PC.NURSE ---
Shift summary: Pt rested in bed throughout shift. She rested with eyes closed for the first portion of the shift. So hard in fact, she did not even remember being woken for breakfast. She is oriented to self and being in a hospital but she reported she was in a different hospital [facility], conditioning room worker are equal , She is able to lift both legs off bed. She is weak. Pitting edema noted on left lower leg. Sinus rhythm noted on monitor. VSS. Urine out out of 450 ml noted. Pt did not report pain or other discomforts today. Excoriation under breatss and in perineal area, nystatin powder applied.
--- NOTE | 2024-10-24 22:01 | USCV_ITS ---
Kwong Kelly Age: 69 Gender: F : 1955 Exam Date: 10/24/2024 14:07 Ordering Phys: Spencer Napier MD Technologist: Kayden Friedman Exam Location: [facility] [place] Indication: nstemi BP: 109 / 68 HR: 67 Rhythm: Sinus Technical Quality: Adequate MEASUREMENTS (Male / Female) Normal Values 2D ECHO LV Diastolic Diameter PLAX 4.4 cm 4.2 - 5.9 / 3.9 - 5.3 cm IVS Diastolic Thickness 1.4 cm 0.6 - 1.0 / 0.6 - 0.9 cm IVS Systolic Thickness 1.3 cm LVPW Diastolic Thickness 1.1 cm 0.6 - 1.0 / 0.6 - 0.9 cm LVPW Systolic Thickness 1.8 cm LVOT Diameter 2.0 cm LV Ejection Fraction 2D Teich 64.9 % LV Ejection Fraction MOD 4C 72.2 % LV Ejection Fraction MOD 2C 65.0 % LV Ejection Fraction 2C AL 63.9 % LA Diameter 4.0 cm RA Systolic Volume 4C AL 60.0 ml RA Systolic Volume 4C MOD 59.1 ml LA Sys Volume AL 52.6 cm cubed LA Sys Volume Index AL 25.0 cm cubed/m squared Aorta at Sinotubular Diameter 2.5 cm IVC Diameter 1.9 cm M-MODE LA Ao Ratio MM 1.8 AV Cusp Separation MM 1.6 cm DOPPLER AV Peak Velocity 168.3 cm/s LVOT Peak Velocity 107.0 cm/s AV Area Cont Eq vti 2.7 cm squared AV Area Cont Eq pk 2.1 cm squared MV Peak Velocity 119.0 cm/s MV Area PHT 3.3 cm squared Mitral E to A Ratio 0.8 TV Peak Velocity 316.0 cm/s TR Peak Velocity 333.0 cm/s TR Peak Gradient 44.4 mmHg TR Mean Velocity 273.0 cm/s TR Mean Gradient 31.6 mmHg TR Velocity Time Integral 91.9 cm PV Peak Velocity 116.3 cm/s RV Ejection Time 0.3 s FINDINGS Left Ventricle Normal left ventricular size and systolic function, EF 64%.mild left ventricular hypertrophy. No regional wall motion abnormalities. . Right Ventricle The right ventricle is normal in size and function. Right Atrium The right atrium is normal in size. Left Atrium Normal left atrial size. Mitral Valve Mild mitral annular calcification. Aortic Valve No gross abnormalities noted Tricuspid Valve Trace tricuspid valve regurgitation. Estimated pulmonary artery peak systolic pressure probably within normal limits. Because of the poor Doppler signals the peak pressure calculation is misleading Pulmonic Valve Pulmonic valve not well visualized. Pericardium No pericardial effusion. Aorta Normal aortic annulus size. IVC Normal IVC dimension with <50% respiratory change of the inferior vena cava. CONCLUSIONS Structurally normal aortic valve without significant sclerosis or stenosis. There is no aortic regurgitation. Normal left ventricular size and systolic function, EF 64%.mild left ventricular hypertrophy. No regional wall motion abnormalities. . Mild mitral annular calcification. Trace tricuspid valve regurgitation. Estimated pulmonary artery peak systolic pressure, probably within normal limits. Because of the poor Doppler signals the peak pressure calculation is misleading. There is no pericardial effusion. There are no intracardiac masses. Compared to the study from 07/29/2024, there may not be a significant change. Dr Kaleigh Flores MD [facility] (Electronically Signed) Final Date: 24 October 2024 17:30 S
--- NOTE | 2024-10-24 23:19 | ECG_ITS ---
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 Measurements Intervals [place] Rate: 115 P: 0 MD: 0 QRS: 35 QRSD: 101 T: 30 QT: 318 QTc: 441 Interpretive Statements ATRIAL FIBRILLATION WITH RAPID VENTRICULAR RESPONSE LOW QRS VOLTAGE IN PRECORDIAL LEADS [QRS DEFLECTION < 1.0 mV IN CHEST LEADS] POSSIBLE ANTERIOR MYOCARDIAL INFARCTION , OF INDETERMINATE AGE [30 ms Q WAVE IN V3/V4, OR R < 0.2 mV IN V4] Compared to ECG 10/24/2024 00:32:39 Low QRS voltage now present Myocardial infarct finding now present Sinus rhythm no longer present Ventricular premature complex(es) no longer present Electronically Signed On 10-26-2024 08:09:23 CDT by Kaleigh Flores M.D. [email or web address] [email or web address]
--- NOTE | 2024-10-24 23:47 | PC.NURSE ---
Addendum entered by TA Siegel 10/25/24 00:15: Provider responded with no new orders and to continue current care. Original Note: Patient rhythm appeared to convert to afib. EKG performed. Patient asymptomatic. EKG consistent with bedside cardiac monitoring. Provider notified of changes at 1314
[2024-10-25] VITALS (27 sets, daily range): BP systolic 83–136; BP diastolic 49–97; PULSE 66–123; RESP 14–34; TEMP 36.6–37.1; O2SAT 93–99
[2024-10-25 05:23] LABS: Hematocrit 34.7 % (36-47); Hemoglobin 11.00 g/dL (11.27-16.99); Mean Corpuscular HGB Conc 31.7 g/dL (30-55); Mean Corpuscular Hemoglobin 31.6 pg (27-33); Mean Corpuscular Volume 99.7 fl (85-98); Nucleated Red Blood Cells % 0 %; Platelet Count 300 10^3/cmm (157-399); Red Blood Count 3.48 10^6/uL (3.85-5.65); White Blood Count 9.71 10^3/uL (3.29-11.43)
[2024-10-25 06:02] LABS: Alanine Aminotransferase 104 U/L (0-33); Albumin Level 3.1 g/dL (3.5-5.2); Alkaline Phosphatase 67 U/L (35-105); Anion Gap 14.5 (5-19); Aspartate Amino Transferase 175 U/L (0-32); Blood Urea Nitrogen 12 mg/dL (8-23); Calcium 8.8 mg/dL (8.5-10.5); Carbon Dioxide 27 mmol/L (22-29); Chloride 103 mmol/L (98-107); Cholesterol 127 mg/dL (0-200); Creatinine Clr Calc Pharmacy 73.1638; Globulin 2.0 g/dL (1.3-4.6); Glucose 119 mg/dL (65-115); HDL Cholesterol 46 mg/dL (60-100); Osmolality Calculated 293 mOsm/kg (285-295); Potassium 3.5 mmol/L (3.5-5.1); Sodium 141 mmol/L (136-145); Total Protein 5.1 g/dL (6.6-8.7); Triglycerides 83 mg/dL (0-150)
[2024-10-25 07:46] LABS: Estmated Average Glucose 108; Hemoglobin A1C 5.4 % (4.0-6.0)
[2024-10-25] MEDS: nystatin 100,000 unit/mL UDC 5 mL 100000 UNIT PO ×3 (09:00→21:20)
[2024-10-25] MEDS: CLOBAZAM 20 MG 20 EACH PO (09:02)
--- NOTE | 2024-10-25 14:03 | P.PN_ITS ---
Subjective 2 Subjective: 69-year-old lady with a past medical his tory of seizure disorder, lower extremity DVT currently on Eliquis, who was brought to the hospital overnight after being found down at home. lethargic but arousable afebrile Vitals/I&O/Wt Last Vital Signs Temp 98.7 F 10/25/24 08:00 Pulse 81 10/25/24 12:00 Resp 24 H 10/25/24 12:00 BP 112/65 10/25/24 12:00 Pulse Ox 97 10/25/24 12:00 O2 Del Method Room Air 10/25/24 12:00 O2 Flow Rate 2 10/24/24 16:00 10/24/24 10/25/24 10/25/24 22:59 06:59 14:59 Intake Total 1213.75 / 2718.75 650 / 650 Output Total 450 / 450 Balance 763.75 / 2268.75 650 / 650 Weight last 48 hrs Weight 213 lb 13.574 oz Weight 213 lb 13.574 oz Weight 213 lb 13.574 oz Weight 212 lb Physical Exam 2 Narrative: General: Lethargic, but arousable CVS:RRR Lung:CTA Abd:soft, NT MSK: no swelling Data 10/25/24 04:33 10/25/24 04:33 Micro: Microbiology 10/23/24 23:57 Blood Culture - Preliminary Blood NEGATIVE TO DATE 10/23/24 23:54 Blood Culture - Preliminary Blood NEGATIVE TO DATE 10/23/24 19:46 Blood Culture - Preliminary Blood NEGATIVE TO DATE 10/23/24 19:41 Blood Culture - Preliminary Blood NEGATIVE TO DATE A&P Assessment and plan 1. Anxiety and depression: 2. Hypertension: 3. Elevated troponin: 4. 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 AMS (altered mental status): 6. Focal and partial seizures: Plan: 1. PT OT consult 2. Neuro consult 3. hold keppra and clobazam 4. 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
--- NOTE | 2024-10-25 15:08 | PC.SOCIAL ---
IMM updated IMM dated and initialed, Copy placed in chart and copy given to patient
--- NOTE | 2024-10-25 15:38 | PC.NURSE ---
human resources operations coordinator rounds- @1400 met with primary RN and was given updates on the patient, patient resting with eyes closed.
--- NOTE | 2024-10-25 16:06 | USCV_ITS ---
Varghese Kelly Age: 69 Gender: F : 1955 Exam Date: 10/25/2024 08:48 Ordering Phys: Rubi Gabriel MD Technologist: DAVEY [place]am Location[place] [facility] [place] Ind[place]: Stroke Risk Factors: Previous Vascular Surgery: Right Brachial BP: / Left Brachial BP: / Right Left Velocity (cm/s) Spectral Plaque Velocity (cm/s) Spectral Plaque Syst/Diast Broadening Syst/Diast Broadening 90.30/ 18.60 Prox CCA 115.80/ 17.80 85.00/ 20.30 Mid CCA 82.00 / 12.30 75.60/ 20.00 Distal CCA 75.20 / 16.80 69.90/ 17.70 Prox ICA 53.10 / 11.50 91.20/ 18.30 Mid ICA 51.20 / 14.70 103.90/19.80 Distal ICA 58.00 / 16.80 119.00 ECA 105.40 0.90 ICA/CCA 0.70 Antegrade Vertebral Antegrade 88.90/ 17.90 cm/s 59.20/ 15.10 cm/s Tri Subclavian Tri 96.40 106.1 0 CONCLUSIONS Right ICA stenosis <50%. Mild atheromatous plaque right carotid bulb/ICA. Left ICA stenosis <50%. Mild atheromatous plaque left carotid bulb/ICA. Normal antegrade Doppler flow noted in the right vertebral artery. Normal antegrade Doppler flow noted in the left vertebral artery. Rajat Quintana MD (Electronically Signed) Final Date: 25 October 2024 11:31 S
--- NOTE | 2024-10-25 19:48 | PC.NURSE ---
Shift summary: Pt has been very somnolent this shift. She does awake for meals and answer the orientation questions appropriately. Seizure medications on hold. Neurology consulted. Pt has a good appetite, most of every meal eaten. She remains on the dysphagia 4 diet with mildly thickened liquids. No reports of pain or other discomforts. Sinus rhythm noted on monitor throughout shift. She did have 2-3 hypotensive readings today, but the then next BP would be WNL. 500ml of urine output noted. NO BM noted.
--- NOTE | 2024-10-25 22:33 | PC.NURSE ---
Patient transfered to [facility]. All belongings confirmed to be with patient. Nonformulary medication in her locked bin along with nystatin taken with patient and given to staff. Report at bedside to Katie. Patient transfered to med-surg bed
[2024-10-26 04:00] VITALS: BP 115/67; PULSE 68; RESP 16; TEMP 36.2; O2SAT 92
[2024-10-26 07:30] VITALS: BP 115/79; PULSE 71; RESP 16; TEMP 37.1; O2SAT 92
[2024-10-26] MEDS: nystatin 100,000 unit/mL UDC 5 mL 100000 UNIT PO ×3 (08:17→20:25)
[2024-10-26 10:25] LABS: Alanine Aminotransferase 84 U/L (0-33); Albumin Level 3.0 g/dL (3.5-5.2); Alkaline Phosphatase 70 U/L (35-105); Anion Gap 8.4 (5-19); Aspartate Amino Transferase 104 U/L (0-32); Blood Urea Nitrogen 14 mg/dL (8-23); Calcium 9.1 mg/dL (8.5-10.5); Carbon Dioxide 30 mmol/L (22-29); Chloride 103 mmol/L (98-107); Creatinine Clr Calc Pharmacy 75.2365; Globulin 2.6 g/dL (1.3-4.6); Glucose 117 mg/dL (65-115); Osmolality Calculated 288 mOsm/kg (285-295); Potassium 3.4 mmol/L (3.5-5.1); Sodium 138 mmol/L (136-145); Total Protein 5.6 g/dL (6.6-8.7)
[2024-10-26 10:26] LABS: Hematocrit 33.7 % (36-47); Hemoglobin 10.60 g/dL (11.27-16.99); Mean Corpuscular HGB Conc 31.5 g/dL (30-55); Mean Corpuscular Hemoglobin 31.5 pg (27-33); Mean Corpuscular Volume 100.0 fl (85-98); Nucleated Red Blood Cells % 0 %; Platelet Count 278 10^3/cmm (157-399); Red Blood Count 3.37 10^6/uL (3.85-5.65); White Blood Count 8.48 10^3/uL (3.29-11.43)
[2024-10-26 11:34] VITALS: BP 119/71; PULSE 69; RESP 15; TEMP 36.9; O2SAT 93
--- NOTE | 2024-10-26 14:06 | P.PN_ITS ---
Subjective 2 Subjective: 69-year-old lady with a past medical his tory of seizure disorder, lower extremity DVT currently on Eliquis, who was brought to the hospital overnight after being found down at home. More awake and communicative today Vitals/I&O/Wt Last Vital Signs Temp 98.5 F 10/26/24 11:34 Pulse 69 10/26/24 11:34 Resp 15 10/26/24 11:34 BP 119/71 10/26/24 11:34 Pulse Ox 93 10/26/24 11:34 O2 Del Method Nasal Cannula 10/26/24 11:34 O2 Flow Rate 2 10/26/24 08:00 10/25/24 10/26/24 10/26/24 22:59 06:59 14:59 Intake Total 250 / 900 120 / 1020 360 / 360 Output Total 500 / 500 200 / 700 Balance -250 / 400 -80 / 320 360 / 360 Weight last 48 hrs Weight 224 lb 9.6 oz Weight 213 lb 13.574 oz Physical Exam 2 Narrative: General: Awake communicative CVS:RRR Lung:CTA Abd:soft, NT MSK: no swelling Urinary Catheter Management: Hogan: Cath Placed During This Visit: no Reason for Continuing Indwelling Catheter: Other Data 10/26/24 09:38 10/26/24 09:38 A&P Assessment and plan 1. Anxiety and depression: 2. Hypertension: 3. Elevated troponin: 4. 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 AMS (altered mental status): 6. Focal and partial seizures: Plan: 1. PT OT consult 2. Neuro consult 3. hold keppra and clobazam 4. continue other home meds Disposition discharge in next 24/48-hour PDMP PDMP Reviewed: Not Reviewed Attestations 2 Medical Necessity Statement*: Monitoring mental status physical therapy Coding Level of Care Code 76501 Diagnoses Anxiety and depression F41.9; F32.A Hypertension I10 Elevated troponin R79.89 Chronic bilateral deep vein thrombosis (DVT) of femoral veins I82.513 AMS (altered mental status) R41.82 Focal and partial seizures G40.109
[2024-10-26 15:22] VITALS: BP 118/65; PULSE 88; RESP 17; TEMP 36.6; O2SAT 93
[2024-10-26 19:59] VITALS: BP 107/62; PULSE 69; RESP 15; TEMP 37.1; O2SAT 91
[2024-10-26 22:00] VITALS: PULSE 69
[2024-10-27] VITALS (11 sets, daily range): BP systolic 98–146; BP diastolic 61–82; PULSE 64–76; RESP 16–17; TEMP 36.3–37.7; O2SAT 92–95
[2024-10-27] MEDS: nystatin 100,000 unit/mL UDC 5 mL 100000 UNIT PO ×3 (08:05→19:51)
--- NOTE | 2024-10-27 13:39 | P.PN_ITS ---
Subjective 2 Subjective: 69-year-old lady with a past medical his tory of seizure disorder, lower extremity DVT currently on Eliquis, who was brought to the hospital overnight after being found down at home. mental status better but about the same as yesterday Vitals/I&O/Wt Last Vital Signs Temp 99.8 F H 10/27/24 11:40 Pulse 71 10/27/24 11:40 Resp 17 10/27/24 11:40 BP 109/63 10/27/24 11:40 Pulse Ox 95 10/27/24 11:40 O2 Del Method Nasal Cannula 10/27/24 11:40 O2 Flow Rate 1 10/27/24 11:10 10/26/24 10/27/24 10/27/24 22:59 06:59 14:59 Intake Total 340 / 700 300 / 1000 480 / 480 Output Total 250 / 250 Balance 340 / 700 50 / 750 480 / 480 Weight last 48 hrs Weight 225 lb 1.6 oz Weight 224 lb 9.6 oz Physical Exam 2 Narrative: General: Awake communicative CVS:RRR Lung:CTA Abd:soft, NT MSK: no swelling Urinary Catheter Management: Hogan: Cath Placed During This Visit: no Reason for Continuing Indwelling Catheter: Other Data 10/26/24 09:38 10/26/24 09:38 A&P Assessment and plan 1. Anxiety and depression: 2. Hypertension: 3. Elevated troponin: 4. 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 AMS (altered mental status): 6. Focal and partial seizures: Plan: 1. PT OT consulted 2. Neuro consulted 3. held keppra and clobazam 4. continue other home meds Disposition discharge in next 24/48-hour per PT recs PDMP PDMP Reviewed: Not Reviewed Attestations 2 Medical Necessity Statement*: PT OT Coding Level of Care Code 17663 Diagnoses Anxiety and depression F41.9; F32.A Hypertension I10 Elevated troponin R79.89 Chronic bilateral deep vein thrombosis (DVT) of femoral veins I82.513 AMS (altered mental status) R41.82 Focal and partial seizures G40.109
--- NOTE | 2024-10-27 13:56 | PC.SOCIAL ---
IMM Update Updated pt on IMM. No questions voiced. Provided pt a copy. Initialed, dated, & timed copy in chart.
--- NOTE | 2024-10-27 17:06 | P.CONIM_ITS ---
Providers/Reason For Consult 2 Consulting Physician/Specialty*: neurology, Dr. Bustos Reason for Consult*: Altered mental status Requesting Physician: Dionne Flowers MD Attending Physician: Dionne Flowers MD Primary Care Provider: IVY Serra History of Present Illness History of Present Illness I have known this woman for many many years. Her sister reports that on 10/23/2024 one of the ladies from [email or web address] drove by her house and saw that the front door was open and she could see Kelly laying on the floor. On arriving here her blood pressure was 68/32 and she had to be treated aggressively in the ER and that was after 2 L of IV fluids prior to arrival. It is never been clear that this patient has seizures as an adult. She had seizures in childhood. The only thing her [id number] ever witnessed was the patient complaining that her hands were numb and tingling. She has not had a generalized tonic-clonic seizure since she was a child. I started her on Onfi a long time ago because she had severe anxiety and she had been on multiple other anticonvulsants including lacosamide, Tegretol and I do not remember what else without benefit. You She is on aripiprazole for treatment resistant depression. Same with citalopram. She had a generalized tonic-clonic seizure in 1974 and her doctor had her on phenobarb and Dilantin. Later she was on Carbatrol but it gave her rash. She was managed by her family physicians in [place]. My first visit with her was sometime around 2009 or 2010 but I do not have records going back that far. I saw her in 2010 when she got overheated, landed on the floor in the living room and said she was too weak to get up. She was on Vimpat at that time. She was dehydrated. Her hands were tingling. She had a hypotensive episode in January 2014. She has had cardiac workup including unremarkable echocardiogram and Rocío scan stress test. She has leg edema. She had a DVT and for that she is on apixaban. Review of Systems 2 Const: Reports: fatigue and malaise; Denies: daytime sleepiness (She is not normally sleepy during the daytime) Card: Reports: chest pain (She has had episodes of lightheadedness and dizziness on many occasions) Resp: Denies: dyspnea GI: Denies: abdominal pain, nausea or vomiting Musc: Reports: back pain Neuro: Reports: weakness in extremities, lack of coordination, difficulty walking, dizziness and difficulty communicating thoughts (For several days); Denies: headache(s) Psych: Reports: anxiety and depression Medications/Allergies Home Medications ?Medication ?Instructions ?Recorded ?Confirmed ?Last Taken ?Type ferrous sulfate 325 mg (65 mg 325 mg PO DAILY 03/15/19 10/24/24 10/23/24 History iron) tablet (iron) aspirin 81 mg tablet,delayed 81 mg PO DAILY 07/23/21 0 10/24/24 10/23/24 History release (Adult Aspirin Regimen) calcium 500 mg PO BID 07/21/2310/2410/23/24 History amlodipine 2.5 mg tablet 2.5 mg PO DAILY #90 tabs 05/2510/24/24 Unknown Rx carvedilol 3.125 mg tablet (Coreg) 3.125 mg PO BID #18 0 tabs 05/03/24 10/24/24 10/23/24 Rx potassium chloride 10 mEq 10 meq PO DAILY 30 days #30 tabs 07/08/24 10/24/24 10/23/24 Rx tablet,extended release(part/cryst) (Klor-Con M) benazepril 40 mg tablet 40 mg PO DAILY #90 tabs 07/0210/24/24 10/23/24 Rx lovastatin 40 mg tablet See Rx Instructions .Route 0 08/18/24 10/24/24 10/23/24 Rx .COMPLEX 90 days #90 tabs apixaban 5 mg tablet (Eliquis) 5 mg PO BID #180 tabs 0 09/14/24 10/24/24 10/23/24 Rx aripiprazole 5 mg tablet (Abilify) 5 mg PO DAILY #90 t abs 09/22/24 10/24/24 10/23/24 Rx citalopram 40 mg tablet See Rx Instructions .Route 0 09/22/24 10/24/24 10/23/24 Rx .COMPLEX #45 tabs clobazam 20 mg tablet (Onfi) 20 mg PO BID #60 tabs 10/24/24 10/24/24 Rx pantoprazole 20 mg tablet,delayed See Rx Instructions .Route 09/22/24 10/24/24 10/23/24 Rx release .COMPLEX #90 tabs Allergies Allergy/AdvReac Type Severity Reaction Status Date / Time carbamazepine (From Allergy itching Verified 09/22/24 09:59 Carbatrol) Current Medications Generic Name Dose Route Start Last Admin Trade Name Freq PRN Reason Stop Dose Admin Acetaminophen 650 mg 10/24/24 00:23 10/24/24 21:51 Acetaminophen 325 Mg Tablet PO 650 mg Q6H PRN Administration Mild/Mod Pain Or Temp >/= 101 Amlodipine Besylate 2.5 mg 10/25/24 09:00 10/27/24 08:04 Amlodipine 5 Mg Tablet PO 2.5 mg DAILY DARLEEN Administration Apixaban 5 mg 10/25/24 09:00 10/27/24 16:49 Apixaban 5 Mg Tablet PO 5 mg BID DARLEEN Administration Aripiprazole 5 mg 10/24/24 09:00 10/27/24 08:04 Aripiprazole 10 Mg Tablet PO 5 mg DAILY DARLEEN Administration Aspirin 81 mg 10/24/24 09:00 10/27/24 08:04 Aspirin 81 Mg Ec Tablet PO 81 mg DAILY DARLEEN Administration Atorvastatin Calcium 20 mg 10/24/24 09:00 10/27/24 08:04 Atorvastatin 40 Mg Tablet PO 20 mg DAILY DARLEEN Administration Carvedilol 3.125 mg 10/24/24 18:00 10/27/24 16:49 Carvedilol 3.125 Mg Tablet PO 3.125 mg BID DARLEEN Administration Citalopram Hydrobromide 60 mg 10/24/24 09:00 10/27/24 08:04 Citalopram 20 Mg Tablet PO 60 mg DAILY DARLEEN Administration Non-Formulary Medication 20 mg 10/24/24 09:00 10/25/24 09:02 Clobazam [Onfi] PO 20 mg On Hold: 10/25/24 14:00 BID DARLEEN Administration Nystatin 1 applic 10/24/24 00:36 10/27/24 16:49 Nystatin Powder 15 Gm Btl TOPICAL 1 applic BID DARLEEN Administration Nystatin 100,000 unit 10/24/24 09:00 10/27/24 14:09 Nystatin 100,000 Unit/Ml Udc 5 Ml PO 100,000 unit TID DARLEEN Administration Pantoprazole Sodium 40 mg 10/24/24 09:00 10/27/24 08:[address] 40 Mg Tablet PO 40 mg DAILY DARLEEN Administration PFSH Acute 2 PFSH: Medical History (Updated 10/27/24 @ 17:24 by Fabiana Bustos MD) Hyperlipidemia Hypertension Surgical History History of open reduction and internal fixation (ORIF) procedure Family History Other CAD (coronary artery disease) Social History Smoking and tobacco/nicotine status: never used tobacco/nicotine Second hand smoke exposure: No Alcohol intake: never Substance/Drug Use: never Adopted: No Caregiver/support person: No Lives independently: Yes Do you think of yourself as: Straight/Heterosexual Current gender identity: Female Vitals/I&O/Wt Last Vital Signs Temp 98.7 F 10/27/24 16:54 Pulse 67 10/27/24 16:54 Resp 17 10/27/24 16:54 BP 119/72 10/27/24 16:54 Pulse Ox 94 10/27/24 16:54 O2 Del Method Nasal Cannula 10/27/24 16:54 O2 Flow Rate 1 10/27/24 11:10 10/27/24 10/27/24 10/27/24 06:59 14:59 22:59 Intake Total 300 / 1000 480 / 480 Output Total 250 / 250 Balance 50 / 750 480 / 480 Weight last 48 hrs Weight 225 lb 1.6 oz Weight 224 lb 9.6 oz Physical Exam 2 Narrative: GENERAL: She is overweight. MENTAL STATUS: She was wide-awake. She looks somewhat pale. She was oriented. She was able to remember what happened. She remembered falling. She remembered that she walked to the refrigerator to get to the and fell when she came back. CRANIAL NERVES: Full eye movements. Normal facial movements. Visual bone full. MOTOR: She moves all 4 extremities with equal strength. SENSATION: Touch and vibration intact distally COORDINATION: [id number] without ataxia. She is able to touch her heel to her savage on both sides. DEEP TENDON REFLEXES: Toes downgoing GAIT: Not tested HEENT: She looks pale, especially periorbital NECK: Carotid upstroke was strong bilaterally CHEST: Clear to auscultation. CARDIOVASCULAR: The heart sounds were normal without murmur or gallop. Regular rate and rhythm. EXTREMITIES: Morbidly obese Urinary Catheter Management: Hogan: Cath Placed During This Visit: no Reason for Continuing Indwelling Catheter: Other Data 10/26/24 09:38 10/26/24 09:38 A&P Assessment and plan 1. Orthostatic hypotension: I think it has been well-documented that this patient has episodic hypotension resulting in falls and loss of consciousness. Most recently she was actually documented to be severely hypotensive. Her sister says that normally she eats well and drinks well and that she should not have been dehydrated. She was a little dry when she got here with a sodium of 148 and creatinine 1.1. Her CPK was markedly elevated at 2782 which is of concern for seizure but could also have been caused by her fall. Her CPK remains elevated at 1674. Since she is not a very muscular person, the CPK elevations are significant. Her anion gap was minimally elevated on arrival at 19.2. She became much more obtunded after anticonvulsants were increased. At this point Dr. Flowers and I are in agreement that her medications should be minimized. Decrease clobazam to 10 mg twice daily or 20 mg at night. Continue citalopram 40 mg. It would be a good idea to reduce aripiprazole down to 2 mg daily or stop it altogether. I think this patient needs to stay in rehab. I do not know if she had a stroke it is possible. She is gradually recovering but I do not think she can return home and I have told her that and she agrees. Her [id number] was present. We are all concerned to find out what actually happened but I do not think this is the first time I think it is just the worst time. 2. Focal and partial seizures: 3. Chronic deep vein thrombosis (DVT): 4. Lumbar disc disease with radiculopathy: PDMP PDMP Reviewed: Not Reviewed Coding Level of Care Code Acute Code for Chg Fwd Diagnoses Orthostatic hypotension I95.1 Focal and partial seizures G40.109 Chronic deep vein thrombosis (DVT) I82.509 Lumbar disc disease with radiculopathy M51.16
[2024-10-27] MEDS: morphine 4 mg/mL SDV 1 mL 2 MG IVP (22:56)
[2024-10-28 04:00] VITALS: BP 130/73; PULSE 75; RESP 17; TEMP 36.7; O2SAT 91
[2024-10-28 05:24] LABS: Hematocrit 31.3 % (36-47); Hemoglobin 10.10 g/dL (11.27-16.99); Mean Corpuscular HGB Conc 32.3 g/dL (30-55); Mean Corpuscular Hemoglobin 32.1 pg (27-33); Mean Corpuscular Volume 99.4 fl (85-98); Nucleated Red Blood Cells % 0 %; Platelet Count 289 10^3/cmm (157-399); Red Blood Count 3.15 10^6/uL (3.85-5.65); White Blood Count 6.38 10^3/uL (3.29-11.43)
[2024-10-28 05:46] LABS: Alanine Aminotransferase 102 U/L (0-33); Albumin Level 2.5 g/dL (3.5-5.2); Alkaline Phosphatase 71 U/L (35-105); Anion Gap 11.5 (5-19); Aspartate Amino Transferase 130 U/L (0-32); Blood Urea Nitrogen 10 mg/dL (8-23); Calcium 9.0 mg/dL (8.5-10.5); Carbon Dioxide 28 mmol/L (22-29); Chloride 103 mmol/L (98-107); Creatinine Clr Calc Pharmacy 75.3134; Globulin 2.8 g/dL (1.3-4.6); Glucose 100 mg/dL (65-115); Osmolality Calculated 287 mOsm/kg (285-295); Potassium 3.5 mmol/L (3.5-5.1); Sodium 139 mmol/L (136-145); Total Protein 5.3 g/dL (6.6-8.7)
[2024-10-28 05:49] VITALS: PULSE 77
[2024-10-28 07:19] VITALS: BP 154/78; PULSE 72; RESP 18; TEMP 36.8; O2SAT 93
[2024-10-28] MEDS: nystatin 100,000 unit/mL UDC 5 mL 100000 UNIT PO ×2 (08:03→15:15)
--- NOTE | 2024-10-28 08:12 | PC.NURSE ---
child care coordinator rounds 10/26 @ 1207, gave patient stroke education book, patient was more awake and talkative
--- NOTE | 2024-10-28 10:06 | PC.NURSE ---
visitor services coordinator rounds at 0855- patient resting in bed with eyes closed
[2024-10-28 11:33] VITALS: BP 107/64; PULSE 66; RESP 17; TEMP 36.8; O2SAT 94
--- NOTE | 2024-10-28 12:06 | P.DS_ITS ---
Discharge Providers Date of Admission: 10/23/24 21:54 Date of Discharge: October 28, 2024 Attending Provider at Admission: Spencer Napier MD Attending Provider at Discharge: Ross Anderson DO Primary Care Provider: IVY Serra Diagnoses at Discharge Discharge Diagnosis 1. Orthostatic hypotension: 2. Chronic bilateral deep vein thrombosis (DVT) of femoral veins: Reason for Visit Reason for Visit: ams; hypotension Brief History: Ms. Kwong is a 69-year-old lady with a past medical history of seizure disorder, lower extremity DVT currently on Eliquis, who was brought to the hospital overnight after being found down at home. Patient was last seen normal at around 11:30 AM by her nfvryb-kc-vov who lives on the same property and helps take care of the patient. At around 5:30 PM as one of her friends was driving by her home, she noticed that the patient's front door was open and patient was lying on the floor. It is unclear if patient was awake and alert at the time or not. Reportedly the friend called patient's brother who lives on the same property and then EMS was called. When EMS arrived patient was hypotensive and did receive 2 doses of epinephrine. There was no CPR. Patient recalls falling at home. States that just before the event she felt her heart was racing and then she fell to the floor. She does not recall the events between being down and being found later on. She remembers waking up in the hospital. Patient has a history of seizure disorder and currently maintained on clobazam 20 mg twice daily. She follows with Dr. Bustos as an outpatient and has been on several other antiseizure medications in the past. Possibility of breakthrough seizure is considered and Keppra was started overnight. Her hnzqnq-ro-eia reports a similar episode about 1 week ago where patient was sitting in her chair and then slid out as if she had no strength. Her family h elped her back into the chair. Gmgkvr-vh-huz additionally reports that over the past 3 to 4 months patient has been having increasing weakness which has particularly worsened in the past 1 week. At baseline patient ambulates with a walker, is able to get to the kitchen, fix her own food etc. however over the past week she is found to have an increased weakness. On exam today patient is alert awake and oriented. She is laying in bed and is unable to lift her left lower extremity off the bed when instructed to do so. She does try to make an effort however is unable to lift the extremity against gravity. The right lower extremity is also weak however faring better than the left lower extremity on exam. While she is able to lift it off the bed she is unable to hold the extremity for longer than 3 seconds. She has no known history of a stroke. Her lower extremity weakness was attributed by the family to her recent discovery of DVT. They report that she had been undergoing evaluation for lower extremity swelling for the past 3 to 4 months and eventually a DVT was discovered for which she is currently on Eliquis. Family attributed the lower extremity weakness to swelling and the DVT. Hospital Course Hospital Course Patient was admitted to the hospital. She was found to have an elevated CPK. She was encouraged with oral hydration due to the chronic lower extremity edema. Patient had elevated troponins initially but downtrending. Telemetry was placed due to the possibility of arrhythmia and none were found. CT of the head found mild atrophic changes with a few small areas of chronic ischemic change. CT of chest abdomen and pelvis showed wall thickening of the urinary bladder consistent with possible cystitis otherwise nothing acute. Carotid Doppler showed less than 50% stenosis of the right and left ICA. With normal Doppler flow of right and left vertebral arteries. Dr. Bustos from neurology was consulted. She felt that the patient likely suffered from orthostatic hypotension and this has been documented in the past. There was also agreement with the attending physician and neurology that many of her medications needed to be discontinued or drastically reduced. As per Dr. Bustos's note: She became much more obtunded after anticonvulsants were increased. At this point Dr. Flowers and I are in agreement that her medications should be minimized. Decrease clobazam to 10 mg twice daily or 20 mg at night. Continue citalopram 40 mg. It would be a good idea to reduce aripiprazole down to 2 mg daily or stop it altogether. Patient is too weak to return home and has placement obtained at a halfway facility. Patient is in stable and improved condition and will be discharged today for rehabilitation. I recommended they continue to follow her CPK level until it returns to normal it continues to trend downward. Physical Exam Narrative: Morbidly obese white female very pale Alert and oriented to person place time and situation nonfocal exam Heart regular normal S1-S2 without loud murmur Chest clear to auscultation anteriorly without wheezes rales or rhonchi Abdomen soft nontender nondistended positive bowel sounds Extremities no clubbing cyanosis or edema Urinary Catheter Management: Hogan: Cath Placed During This Visit: no Reason for Continuing Indwelling Catheter: Other Discharge Data Studies Completed and Pending Completed Studies During Hospitalization Category Date Time Status CT Angio Chest + Abdomen Pelvis w/ contrast; [id number] + Cat Scan 10/23/24 22:[address] head wo con* [id number] Stat Cat Scan 10/23/24 18:53 Completed XR chest 1V portable [id number] Stat Exams 10/23/24 18:53 Completed CV carotid duplex BI* [id number] Routine Ultrasound 10/25/24 16:06 Completed CV. echo complete* [id number] Routine Ultrasound 10/24/24 22:01 Completed Pending at discharge Category Date Time Status Blood Culture Stat Lab 10/23/24 19:46 Results Blood Culture Stat Lab 10/23/24 23:54 Results Radiology Impressions Chest X-Ray 10/23/24 18:53 IMPRESSION: 1. Maybe some patchy atelectasis and linear atelectasis base. Combination of atelectasis and pneumonia can not be entirely excluded. 2. Stable heart size. 3. Head of the humerus appears slightly low with respect left glenoid. This can be seen with laxity of the capsule. Correlate clinically Head CT 10/23/24 18:53 IMPRESSION: 1. Mild atrophic changes. 2. A few small areas decreased signal intensity subcortical white matter density can be seen chronic ischemic change. 3. No acute appearing intracranial abnormality. 4. Opacification right ethmoid air cells. Chest/Abdomen/Pelvis CT 10/23/24 22:01 IMPRESSION: 1. Compromised evaluation of the lower lobe subsegmental arteries bilaterally due to artifact. Otherwise no demonstrable pulmonary emboli. 2. Mild cardiomegaly. Calcification of the annulus 3. Mild atherosclerosis thoracic aorta ectasia ascending thoracic. 4. Age indeterminate but probably old moderate compression fractures of the T9 and T10. 5. Atelectasis lower lobes. Ground-glass density seen in the lower lobes suspicious for pneumonia. IMPRESSION: 1. Wall thickening urinary bladder with surrounding stranding. Findings consistent with cystitis/UTI. Contains a Hogan catheter. 2. Bilateral simple cysts. No follow-up imaging recommended. 3. Mild diverticulosis sigmoid 4. 2.8 cm simple appearing cyst left ovary. 5. Umbilical hernia containing fat. 6. Degenerative changes and compression deformities/fractures described previously and are probably chronic . However no images available to compare Laboratory Results WBC 6.38 10^3/uL (3.29-11.43) 10/28/24 05:08 RBC 3.15 10^6/uL (3.85-5.65) L 10/28/24 05:08 Hgb 10.10 g/dL (11.27-16.99) L 10/28/24 05:08 Hct 31.3 % (36-47) L 10/28/24 05:08 MCV 99.4 fl (85-98) H 10/28/24 05:08 MCH 32.1 pg (27-33) 10/28/24 05:08 MCHC 32.3 g/dL (30-55) 10/28/24 05:08 RDW 12.5 % (12.1-15.1) 10/28/24 05:08 Plt Count 289 10^3/cmm (157-399) 10/28/24 05:08 MPV 10.1 fL (7.4-10.4) 10/28/24 05:08 Neut % (Auto) 63.9 % 10/28/24 05:08 Lymph % (Auto) 22.7 % 10/28/24 05:08 [place] % (Auto) 9.2 % 10/28/24 05:08 Eos % (Auto) 3.3 % 10/28/24 05:08 Baso % (Auto) 0.6 % 10/28/24 05:08 Neut # (Auto) 4.07 10^3/uL (1.8-7.7) 10/28/24 05:08 Lymph # (Auto) 1.5 10^3/uL (0.8-4.8) 10/28/24 05:08 [place] # (Auto) 0.6 10^3/uL (0.2-0.9) 10/28/24 05:08 Eos # (Auto) 0.2 10^3/uL (0.0-0.8) 10/28/24 05:08 Baso # (Auto) 0.0 10^3/uL (0.0-0.1) 10/28/24 05:08 Nucleated RBC % (auto) 0 % 10/28/24 05:08 Nucleated RBCs # 0.0 /100WBC 10/28/24 05:08 PT 18.20 SECONDS (12.1-14.9) H 10/23/24 19:41 INR 1.41 (0.8-1.2) H 10/23/24 19:41 APTT 34.3 SECONDS (23.9-36.7) 10/23/24 19:41 Specimen Type Arterial 10/23/24 19:09 Sample Site Brachial, left 10/23/24 19:09 ABG pH 7.41 (7.35-7.45) 10/23/24 19:09 ABG pCO2 46.0 mmHg (35-45) H 10/23/24 19:09 ABG pO2 78.5 mmHg (80.0-100.0) L 10/23/24 19:09 ABG PO2/FiO2 Ratio 230 10/23/24 19:09 ABG HCO3 29.2 mmol/L (22-26) H 10/23/24 19:09 ABG Base Excess 3.9 mmol/L (-2.0-2.0) H 10/23/24 19:09 Gabe Test Pos 10/23/24 19:09 Hematocrit 36.5 % (37-47) L 10/23/24 19:09 O2 Delivery Device Nc 10/23/24 19:09 O2 Liters/Min 3.5 % 10/23/24 19:09 FiO2 34.0 % 10/23/24 19:09 Drier Feeder ID gerca 10/23/24 19:09 Sodium 139 mmol/L (136-145) 10/28/24 05:08 Potassium 3.5 mmol/L (3.5-5.1) 10/28/24 05:08 Chloride 103 mmol/L (98-107) 10/28/24 05:08 Carbon Dioxide 28 mmol/L (22-29) 10/28/24 05:08 Anion Gap 11.5 (5-19) 10/28/24 05:08 BUN 10 mg/dL (8-23) 10/28/24 05:08 Creatinine 0.5 mg/dL (0.5-0.9) 10/28/24 05:08 GFR Calculation 122.7 mL/min (90-130) 10/28/24 05:08 Glucose 100 mg/dL (65-115) 10/28/24 05:08 Estimat Average Glucose 108 10/25/24 04:33 Hemoglobin A1c 5.4 % (4.0-6.0) 10/25/24 04:33 Calculated Osmolality 287 mOsm/kg (285-295) 10/28/24 05:08 Lactic Acid 1.6 mmol/L (0.5-2.2) 10/23/24 19:41 Calcium 9.0 mg/dL (8.5-10.5) 10/28/24 05:08 Phosphorus 2.7 mg/dL (2.5-4.5) 10/26/24 09:38 Magnesium 2.2 mg/dL (1.7-2.3) 10/23/24 19:41 Total Bilirubin 0.2 mg/dL (0.15-1.2) 10/28/24 05:08 AST 130 U/L (0-32) H 10/28/24 05:08 ALT 102 U/L (0-33) H 10/28/24 05:08 Alkaline Phosphatase 71 U/L (35-105) 10/28/24 05:08 Creatine Kinase 489 U/L (26-192) H* 10/28/24 05:08 Troponin T Baseline 116 ng/L (0-10) H* 10/23/24 19:41 Troponin T 120 Minute 110.2 ng/L (0-10) H 10/23/24 21:42 Delta Troponin T -5.8 ABS# (0-10) L 10/23/24 21:42 Troponin T Hi Sens 6Hr 106.4 ng/L (0-10) H 10/24/24 00:37 Troponin T Hi Sens 6Hr Delta -9.6 ng/L (0-12) L 10/24/24 00:37 C-Reactive Protein 5.2 mg/L (0.0-4.9) H 10/23/24 19:41 NT-Pro-B Natriuret Pep 218 pg/mL (0-125) H 10/23/24 23:54 Total Protein 5.3 g/dL (6.6-8.7) L 10/28/24 05:08 Albumin 2.5 g/dL (3.5-5.2) L 10/28/24 05:08 Globulin 2.8 g/dL (1.3-4.6) 10/28/24 05:08 Triglycerides 83 mg/dL (0-150) 10/25/24 04:33 Triglycerides Cancelled 10/25/24 04:33 Cholesterol 127 mg/dL (0-200) 10/25/24 04:33 Cholesterol Cancelled 10/25/24 04:33 LDL Cholesterol, Calc 64 mg/dL (50-129) 10/25/24 04:33 LDL Cholesterol, Calc Cancelled 10/25/24 04:33 HDL Cholesterol 46 mg/dL (60-100) L 10/25/24 04:33 HDL Cholesterol Cancelled 10/25/24 04:33 LDL/HDL Ratio 1.39 RATIO (0.00-3.22) 10/25/24 04:33 LDL/HDL Ratio Cancelled 10/25/24 04:33 Cholesterol/HDL Ratio 2.76 mg/dL (0.0-4.40) 10/25/24 04:33 Cholesterol/HDL Ratio Cancelled 10/25/24 04:33 Procalcitonin 0.14 ng/mL (0-0.5) 10/23/24 23:54 TSH 0.55 uIU/mL (0.27-4.20) 10/24/24 03:58 Urine Color Yellow (Yellow) 10/23/24 19:09 Urine Appearance Cloudy (CLEAR) A 10/23/24 19:09 Urine pH 5.5 (5-7) 10/23/24 19:09 Ur Specific [place] 1.022 (1.005-1.030) 10/23/24 19:09 Urine Protein 2+ (Negative) A 10/23/24 19:09 Urine Glucose (UA) Negative (Normal) 10/23/24 19:09 Urine Ketones Trace (Negative) 10/23/24 19:09 Urine Blood 3+ (Negative) A 10/23/24 19:09 Urine Nitrate Negative (Negative) 10/23/24 19:09 Urine Bilirubin Negative (Negative) 10/23/24 19:09 Urine Urobilinogen 1.0 mg/dL (Negative) 10/23/24 19:09 Ur Leukocyte Esterase Negative (Negative) 10/23/24 19:09 Urine RBC 11-20 /hpf (0-2) H 10/23/24 19:09 Urine WBC 0-5 /hpf (0-5) 10/23/24 19:09 Ur Squamous Epith Cells 0-5 /hpf (0-5) 10/23/24 19:09 Amorphous Sediment Not Reportable 10/23/24 19:09 Urine Bacteria None seen /hpf (NONE) 10/23/24 19:09 Hyaline Casts 117.10 /lpf 10/23/24 19:09 Urine Opiates Screen Negative ng/mL (Negative) 10/23/24 19:09 Ur Barbiturates Screen Negative ng/mL (Negative) 10/23/24 19:09 Ur Phencyclidine Scrn Negative ng/mL (Negative) 10/23/24 19:09 Ur Amphetamines Screen Negative ng/mL (Negative) 10/23/24 19:09 U Benzodiazepines Scrn Positive ng/mL (Negative) H 10/23/24 19:09 Urine Cocaine Screen Negative ng/mL (Negative) 10/23/24 19:09 U Marijuana (THC) Screen Negative ng/mL (Negative) 10/23/24 19:09 Ethyl Alcohol < 10 mg/dL (0-10) 10/23/24 19:41 Vitals Last Vital Signs Temp 98.2 F 10/28/24 11:33 Pulse 66 10/28/24 11:33 Resp 17 10/28/24 11:33 BP 107/64 10/28/24 11:33 Pulse Ox 94 10/28/24 11:33 O2 Del Method Nasal Cannula 10/28/24 11:33 O2 Flow Rate 2 10/28/24 08:00 Discharge Plan Discharge Patient Disposition: Xfer SNF Condition: Stable Prescriptions: Continued ferrous sulfate [iron] 325 mg (65 mg iron) tablet 325 mg PO DAILY aspirin [Adult Aspirin Regimen] 81 mg tablet,delayed release (DR/EC) 81 mg PO DAILY calcium 500 mg PO BID citalopram 40 mg tablet See Rx Instructions .ROUTE .COMPLEX Qty: 45 11RF Dose Instruction: TAKE 1 AND 1/2 TABLETS BY MOUTH DAILY Rx Instructions: TAKE 1 AND 1/2 TABLETS BY MOUTH DAILY pantoprazole 20 mg tablet,delayed release (DR/EC) See Rx Instructions .ROUTE .COMPLEX Qty: 90 3RF Dose Instruction: Take 1 tablet by mouth once daily Rx Instructions: Take 1 tablet by mouth once daily potassium chloride [Klor-Con M10] 10 mEq tablet,ER particles/crystals 10 meq PO DAILY 30 Days Qty: 30 2RF carvedilol [Coreg] 3.125 mg tablet 3.125 mg PO BID Qty: 180 3RF amlodipine 2.5 mg tablet 2.5 mg PO DAILY Qty: 90 3RF benazepril 40 mg tablet 40 mg PO DAILY Qty: 90 3RF lovastatin 40 mg tablet See Rx Instructions .ROUTE .COMPLEX 90 Days Qty: 90 3RF Dose Instruction: TAKE 1 TABLET BY MOUTH DAILY Rx Instructions: TAKE 1 TABLET BY MOUTH DAILY Eliquis 5 mg tablet 5 mg PO BID Qty: 180 1RF Rx Instructions: 10mg (2 tabs) twice a day for 7 days, then 5mg twice a day Changed clobazam [Onfi] 20 mg tablet 10 mg PO BID Qty: 60 5RF aripiprazole [Abilify] 5 mg tablet 2 mg PO DAILY Qty: 90 2RF Wireworker OK for DC: Neurology Discharge Order = DC NOW: Discharge Order (Routine); Ordered 10/28/24 Ordered By: Ross Anderson Referrals: [facility] [Outside] Cherelle Quinn FNP [Primary Care Provider, Family Practice] Discharge Diet: Usual diet Discharge Activity: As per PT/OT instructions Patient Instructions: Altered Mental Status (ED), Opioid Safety, Pain Management, Patient Portal & Barb Instructions Activity Restrictions/Additional Instructions: Follow CT PK levels until normal. Recommend checking vitamin D level. Follow-up with orthostatic vital signs. Discharge Attestations Time Spent in Discharge Care*: greater than 30 min Quality Metrics Clinical Quality Measures [ No reported AMI, CVA or VTE this stay] Coding Level of Care Code Acute Code for Chg Fwd Diagnoses Orthostatic hypotension I95.1 Chronic bilateral deep vein thrombosis (DVT) of femoral veins I82.513
--- NOTE | 2024-10-28 13:06 | PC.NURSE ---
Attempted to call report to [facility] 4 times.
--- NOTE | 2024-10-28 13:28 | PC.NURSE ---
D/C pending EMS transport. Unsure of ETA.
[2024-10-28 15:56] VITALS: BP 120/71; PULSE 67; RESP 18; TEMP 36.7; O2SAT 95
[2024-10-28 16:53] VITALS: BP 120/71; PULSE 67; O2SAT 95
== END 2024-10-28 16:54 | disposition skilled nursing facility (03) | DRG 312 ==
LOC: ER 22:38 → ICU 23:37 → MEDSURG 10-25 22:24
PROVIDERS: Internal Medicine; Student in an Organized Health Care Education/Training Program; Admitting Provider Family Medicine; Emergency Provider Emergency Medicine; PCP Registered Nurse; Visit Provider Internal Medicine
DX: I95.1 Orthostatic hypotension (principal); I82.509 Chronic embolism and thrombosis of unspecified deep veins of unspecified lower extremity; G40.109 Localization-related (focal) (partial) symptomatic epilepsy and epileptic syndromes with simple partial seizures, not intractable, without status epilepticus; M62.82 Rhabdomyolysis; Z79.01 Long term (current) use of anticoagulants; R79.89 Other specified abnormal findings of blood chemistry; E78.5 Hyperlipidemia, unspecified; I10 Essential (primary) hypertension; F41.9 Anxiety disorder, unspecified; F32.A Depression, unspecified; R41.82 Altered mental status, unspecified; M51.16 Intervertebral disc disorders with radiculopathy, lumbar region; Z79.82 Long term (current) use of aspirin
CPT/HCPCS: 36415; 36600; 70450; 71045; 71275; 74177; 80053; 80061; 80306; 80307; 81001; 82550; 82803; 83036; 83605; 83735; 83880; 84100; 84145; 84443; 84484; 85025; 85610; 85730; 86140; 87040; 87086; 92610; 93005; 93306; 93880; 94664; 96360; 96372; 97110; 97162; 97165; 97530; 97535; 99285; J1650; J1953; J2270; J7030; J9999

== ENCOUNTER 2024-11-13 09:34 | Emergency (ER) | payer MEDICARE, MEDICAID, SELFPAY ==
[2024-11-13] VITALS (8 sets, daily range): BP systolic 96–159; BP diastolic 64–98; PULSE 86–101; RESP 18; TEMP 36.9; O2SAT 93–95; BMI 27.4
--- NOTE | 2024-11-13 09:41 | XRR_ITS ---
PROCEDURE INFORMATION: Exam: XR Chest Exam date and time: 11/13/2024 9:50 AM Age: 69 years old Clinical indication: Cough; Additional info: Dyspnea/cough TECHNIQUE: Imaging protocol: Radiologic exam of the chest. Views: 1 view. COMPARISON: CT angio chest w abd pel w con 10/23/2024 10:14 PM FINDINGS: Lungs: Unremarkable. No consolidation. Pleural spaces: Unremarkable. No pleural effusion. No pneumothorax. Heart/Mediastinum: Unremarkable. No cardiomegaly. Vasculature: Mild uncoiling of the thoracic aorta. Bones/joints: Unremarkable. XR/XR chest 1V portable [id number] IMPRESSION: No acute findings.
--- NOTE | 2024-11-13 09:41 | ECG_ITS ---
[facility]: 2024-[facility]13 Pat Name: Kelly Kwong Department: Room: Gender: Female Mineral Mixer: : 1955 Requested By: Michael Sanchez Order Number: [id number] Betancourt MD: Jasper Grijalva M.D. Measurements Intervals [place] Rate: 92 P: 40 FL: 162 QRS: -10 QRSD: 80 T: 8 QT: 326 QTc: 404 Interpretive Statements SINUS RHYTHM POSSIBLE LEFT ATRIAL ENLARGEMENT [-0.1mV P-WAVE IN V1/V2] POSSIBLE LEFT VENTRICULAR HYPERTROPHY [VOLTAGE CRITERIA PLUS LAE OR QRS WIDENING] Compared to ECG 10/24/2024 23:26:42 Atrial flutter versus atrial tachycardia with variable conduction no longer present Electronically Signed On 11-13-2024 20:16:07 CDT by Jasper Grijalva M.D. [email or web address]
--- OUTSIDE RECORDS SUMMARY | 2024-11-13 09:41 | XMS_ITS | Encounter Summary ---
Author Organization [facility] Address [address] [place] [address] Care Team Providers Care Caddymaster Name Role Phone IVY Beard Sr., Michael [...] on file Legal Sex Female 3:11 AM PARAFFINER Gender Identity Not on file Sexual Orientation Not on file documented as of this encounter Plan of Treatment Not on file documented as of this encounter Visit Diagnoses Diagnosis Closed fracture of upper end of tibia- Primary documented in this encounter Care Teams Caddymaster Relationship Specialty Start Date End Date Reynaldo Beard Sr., FNP [address] [place] [address] PCP - General NURSE PRACTITIONER 05/28/13 documented as of this encounter
--- OUTSIDE RECORDS SUMMARY | 2024-11-13 09:41 | XMS_ITS | Clinical Summary ---
Author Organization [employer] Address [address] Attn: Epic Prelude ADT [place] [address] Care Team Providers Care Recovery Coach Name Role Phone Unavailable Primary Care Provider [...] Active Active Problems No known active problems Encounters Date Type Department Care Team Description 10/23/2024 2:25 AM CDT - 10/23/2024 11:59 PM CDT Hospital Encounter [facility] [address] [place] [address] [address], [facility] Discharge Disposition: Short term general hospital from Last 3 Months Social History Tobacco Use Types Packs/Day Years Used Date Smoking Tobacco: Never Smokeless Tobacco: Never Tobacco Cessation:Counseling Given: Not Answered Alcohol Use Standard Drinks/Week Comments No 0 (1 standard drink = 0.6 oz pur e alcohol) Comments No Sex and Gender Information Value Date Recorded Sex Assigned at Not on file Legal Sex Female 10:52 AM NURSE RESEARCH Gender Identity Not on file Sexual Orientation [...] Health Maintenance Due Date Last Done Comments Pre-Diabetes and Diabetes Screening 1955 DTAP/TDAP/TD VACCINES (1 - Tdap) 05/05/1975 COLORECTAL SCREENING 2001 Colorectal Cancer Screening 2001 FIT-DNA Q 3 years 2001 FIT/FOBT Q 1 year 2001 Flex Sig/CT Colonography Q 5 years 2001 PNEUMOCOCCAL VACCINE 50+ YEA RS (1 of 1 - PCV) 2006 ZOSTER VACCINE (1 of 2) 2006 BREAST CANCER SCREENING 05/08/2010 05/08/2009, 05/08 RSV VACCINE (60+ or ) (1 - Risk 60-74 years 1-dose series) 2016 OSTEOPOROSIS SCREENING 2021 INFLUENZA VACCINE (#1) 2024 Procedures Procedure Name Priority Date/Time Associated Diagnosis Comments MAMMO SCREENING BILAT Routine 05/08/2009 8:36 AM NURSE RESEARCH Other screening mammogram from Last 3 Months or Most Recently Relevant to Health Maintenance Results * MAMMO SCREENING BILAT (05/08/2009 8:36 AM NURSE RESEARCH) Anatomical Region Laterality Modality Breast Bilateral Other Narrative 05/09/2009 10:40 AM NURSE RESEARCH Bilateral Mammogram Reason for Exam: Screening Comparison: [...] since the prior mammogram(s). Reynaldo Beard Sr., SLOT MACHINE KEY PERSON MAMMO ORDERABLES Final Result from Last 3 Months or Most Recently Relevant to Health Maintenance Insurance MEDICAID [place] [facility] [id number]
--- OUTSIDE RECORDS SUMMARY | 2024-11-13 09:41 | XMS_ITS | Encounter Summary ---
Author Organization [facility] Address [address] [place] [address] Care Team Providers Care Curator Of Education Name Role Phone IVY Beard Sr., Michael Dave Primary Care Pro vider Reason for Referral * Outpatient Services (Routine) - Closed Specialty Diagnoses / Procedures Referred By [employer] t Referred To Contact Diagnoses Left leg numbness Procedures MRI LUMBAR WO CONTRAST Reynaldo Beard Sr., FNP [address] [place] [id number] Phone: tel: fax: [facility] [address] [place] [address] Phone: tel: fax: Referral ID Status Reason Start Date Expiration Date Visits Re quested Visits Authorized [id number] Closed 08/20/2012 09/19/2012 1 1 Encounter Details Date Type Department Care Team (Latest Contact Info) Description 08/20/2012 Ancillary Orders [facility] Scheduling [address] [place] [address] Reynaldo Beard Sr., FNP [address] [place] [address] [phone] Left leg numbness (Primary Dx) Social History Tobacco Use Types Packs/Day Years Used Date Smoking Tobacco: Never Assessed Comments Unknown Sex and Gender Information Value Date Recorded Sex Assigned at Not on file Legal Sex Female 3:11 AM FAMILY SERVICES COORDINATOR Gender Identity Not on file Sexual Orientation [...] sensation documented in this encounter Care Teams Curator Of Education Relationship Specialty Start Date End Date Kisha Weaver, IVY Hayward [address] [place] [address] PCP - General NURSE PRACTITIONER 05/28/13 documented as of this encounter
--- OUTSIDE RECORDS SUMMARY | 2024-11-13 09:41 | XMS_ITS | Encounter Summary ---
Author Organization [facility] Address [address] [place] [address] Care Team Providers Care Safety Lead Name Role Phone IVY Beard Sr., Michael Dave Primary Care Pro vider Encounter Details Date Type Department Care Team (Latest Contact Info) Description 03/16/2003 Outpatient Historical [facility]3] Orthopedics- [address] [place] [address] FX UPPER END TIBIA-CLOSE (Primary Dx) Social History Tobacco Use Types Packs/Day Years Used Date Smoking Tobacco: Never Assessed Comments Unknown Sex and Gender Information Value Date Recorded Sex Assigned at Not on file Legal Sex Female 3:11 AM DAIRY EQUIPMENT INSTALLER Gender Identity Not on file Sexual Orientation Not on file documented as of this encounter Plan of Treatment Not on file documented as of this encounter Visit Diagnoses Diagnosis Closed fracture of upper end of tibia- Primary documented in this encounter Care Teams Safety Lead Relationship Specialty Start Date End Date Reynadlo Beard Sr., FNP [address] [place] [address] PCP - General NURSE PRACTITIONER 05/28/13 documented as of this encounter
--- OUTSIDE RECORDS SUMMARY | 2024-11-13 09:41 | XMS_ITS | Encounter Summary ---
Author Organization [facility] Address [address] [place] [address] Care Team Providers Care Hvac Sales Representative Name Role Phone IVY Beard Sr., Michael Dave Primary Care Pro vider Encounter Details Date Type Department Care Team (Latest Contact Info) Description 05/18/2003 Outpatient Historical [facility] Orthopedics- [address] [place] [address] FX UPPER END TIBIA-CLOSE (Primary Dx); BONE & CARTILAGE DIS NOS Social History Tobacco Use Types Packs/Day Years Used Date Smoking Tobacco: Never Assessed Comments Unknown Sex and Gender Information Value Date Recorded Sex Assigned at Not on file Legal Sex Female 3:11 AM PACK MASTER Gender Identity Not on file Sexual Orientation Not on file documented as of this encounter Plan of Treatment Not on file documented as of this encounter Visit Diagnoses Diagnosis Closed fracture of upper end of tibia- Primary Disorder of bone and cartilage, unspecified documented in this encounter Care Teams Hvac Sales Representative Relationship Specialty Start Date End Date Reynaldo Beard Sr., FNP [address] [place] [address] PCP - General NURSE PRACTITIONER 05/28/13 documented as of this encounter
--- OUTSIDE RECORDS SUMMARY | 2024-11-13 09:41 | XMS_ITS | Encounter Summary ---
Author Organization [employer] [facility] Address [address] [place] [address] Care Team Providers Care Cutter And Presser Name Role Phone Kisha Weaver, IVY, Reynaldo Shaw Primary Care Pro vider Encounter Details Date Type Department Care Team (Late st Contact Info) Description 09/15/2017 Ancillary Orders [facility] [address] [place] [address] Cherelle Quinn, IVY [address] [place] [address] Pain and swelling of right wrist Social History Tobacco Use Types Packs/Day Years Used Date Smoking Tobacco: Never Alcohol Use Standard Drinks/Week Comments No 0 (1 standard drink = 0.6 oz pur e alcohol) Comments No Sex and Gender Information Value Date Recorded Sex Assigned at Not on file Legal Sex Female 3:11 AM RN POST PARTUM Gender Identity Not on file Sexual Orientation [...] to advanced first carpometacarpal joint degenerative changes. [id number] Narrative 09/15/2017 8:14 PM CDT Exam: XR [...] to advanced first carpometacarpal joint degenerative changes. [id number] Cherelle [facility] ORDER[facility] ES Final Result documented in this encounter Visit Diagnoses Diagnosis Pain and swelling of right wrist Pain and swelling of right wrist documented in this encounter Care Teams Cutter And Presser Relationship Specialty Start Date End Date Kisha Weaver, IVY [facility] [address] [place] [address] PCP - General NURSE PRACTITIONER 05/28/13 documented as of this encounter
--- OUTSIDE RECORDS SUMMARY | 2024-11-13 09:41 | XMS_ITS ---
Author Organization [facility] Care Team Providers Care Technical Marketing Engineer Name Role Phone Francisco Gallego Unavailable Unavailable Shivani Salinas Unavailable Unavailable Allergies and adverse reactions Code CodeSystem Substance Reaction Severity StartDate Concern Status 2001 RXNORM carBAMazepine Unknown 10/28/2024 active Care Team Name Role Address Phone Organization Dates Francisco Gallego PCP [address] [place], [address], [place] (Office): [facility] 10/28/2024 - present Shivani Salinas [address] [place], [address], [facility] (Office): : [facility] 10/28/2024 - present Encounters EncounterType Code CodeSystem Description Performer ServiceDe liveryLocation Date Ambulatory Encounter CPT Code = [id number] Localization-r elated idiopathic epilepsy [facility] Address: [address] [place] [address], [address], [facility]. 10/28 Ambulatory Encounter CPT Code = [id number] Rhabdomyolysis [facility] Address: [address] [place] [address], [address], [facility]. 10/28 Ambulatory Encounter CPT Code = [address] Orthostatic hypotension [facility] Address: [address] [place] [address], [address] [place] [address]. 10/28 Ambulatory Encounter CPT Code = [address] Disorder of vein of lower extremity [facility] Address: [address] [place] [address], [address] [place] [address]. 10/28 Ambulatory Encounter CPT Code = [address]278 [address] Depressive disorder [facility] Address: [address] [place] [address], [address] [place] [address]. 10/28 Ambulatory Encounter CPT Code = [address] Anxiety disorder [facility] Address: [address] [place] [address], [address] [place] [address]. 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 10/28 Ambulatory Encounter CPT Code = [address] Essential hypertension [facility] Address: [address] [place] [address], [address] [place] [address]. 10/28 Ambulatory Encounter CPT Code = 54060 1950609 [address] Cerebral infarction [facility] Address: [address] [place] [address], [address] [place] [address]. 10/28 Ambulatory Encounter CPT Code = [address] Altered mental status [facility] Address: [address] [place] [address], [address] [place] [address]. 10/28 Ambulatory Encounter CPT Code = [id number] Syncope and collapse [facility] Address: [address] [place] [address], [address] [place] [address]. 10/28 Ambulatory Encounter CPT Code = [address] Abnormal [facility] Address: [address] [place] [address], [address] [place] [address]. 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 10/28 Ambulatory Encounter CPT Code = [address] Constipation [facility] Address: [address] [place] [address], [address] [place] [address]. 10/28 Ambulatory Encounter CPT Code = [address] Preventive procedure [facility] Address: [address] [place] [address], [address] [place] [address]. 10/28 Ambulatory Encounter CPT Code = [address] Hyperlipidemia [facility] Address: [address] [place] [address], [address] [place] [address]. 10/28 Ambulatory Encounter CPT Code = [address] Gastroesophage al reflux disease without esophagitis [facility] Address: [address] [place] [address], [address] [place] [address]. 10/28 Goals Section Goals Description Status Target Date All goals will be reviewed a nd updated as needed with completion of the assessment process of the [facility] unless otherwise stated in the individualized goal Active 02/06/2025 Kelly will improve mobility a nd regain the ability to return to community through the review date. Active 02/06/2025 Resident Will Be Free of Pain / Discomfort Activ e 02/06/2025 Resident Will Not Experience Seizure Activity Ac tive 02/06/2025 Resident will not have adver se effects r/t usage of medications with Black Box Warnings. Active 02/06/2025 Resident will remain free fr om s/s Covid-19 virus through review date Active 02/06/2025 The resident will be free fr om discomfort or adverse reactions related to anticoagulant use through the review date. Active 02/06/2025 The resident will be free fr om discomfort or adverse reactions related to antidepressant therapy through the review date. Active 02/06/2025 The resident will be free fr om injury from seizure activity through the review date. Active 02/06/2025 The resident will be free of minor injury throug h the review date. Active 02/06/2025 The resident will be free of symptoms of dehydration and maintain moist mucous membranes, good skin turgor. Active 02/06/2025 The resident will be/remain free of psychotropic drug related complications, including movement disorder, discomfort, hypotension, gait disturbance, constipation/impaction or cognitive/behavioral impairment through review date. Active 1 04/09/2024 The resident will be/remain free of seizure activity through review date. Active 02/06/2025 The resident will have intac t skin, free of redness, blisters or discoloration by/through review date. Active 02/06/2025 The resident will maintain l ab values within therapeutic range per MD through review date. Active 02/06/2025 The resident will not sustai n serious injury through the review date. Active 02/06/2025 The resident will remain ruben e from injury related to seizure activity through review date. Active 02/06/2025 The resident will remain ruben e from skin breakdown due to incontinence and brief use through the review date. Active The resident's risk for sept icemia will be minimized/prevented via prompt recognition and treatment of symptoms of UTI through the review date. Active 02/06/2025 Will be free from skin issues through review yohan e. Active 02/06/2025 Functional Status Code Name Recorded Time Value Entered By Ambulation 11/12/2024 Extensive Assistance samwade Ambulation 11/12/2024 Extensive Assistance samwade Ambulation 11/12/2024 Extensive Assistance samwade Ambulation 11/12/2024 Extensive Assistance samwade Bathing 11/02/2024 Extensive Assistance samwade Dressing 11/12/2024 [facility] Fe[facility] or Eating 11/12/2024 Independent [facility] To[facility]ting 11/13/2024 Supervision nellie Transferring 11/12/[address] [facility] Immunizations Immunization Status Vaccine Details Vaccine Code CodeSystem Yohan e Notes Influenza cancelled Influenza, high-dose, split virus, quadrivalent, injectable, preservative free 197 CVX created date: 10/29/2024 consent date: 10/28/2024 TB 2 Step Mantoux Skin Test completed tuberculin skin test; unspecified formulation lotNumber: [id number] expiry: 12/15/2025 Mfg: PAR Given 0.1 ml Left Forearm intradermally Step 1 of Multi-step with next step required 98 CVX created date: 10/29/2024 consent date: 10/28/2024 administere d date: 10/29/2024 TB 2 Step Mantoux Skin Test new tuberculin skin test; unspecified formulation 98 CVX created date: 10/30/2024 consent date: 10/28/2024 SARS-COV-2 (COVID-19) cancelled created date: 10/29/2024 consent date: 10/28/2024 Pneumococcal conjugate PCV 13 cancelled pneumococcal conjugate vaccine, 13 valent 133 CVX created date: 10/29/2024 consent date: 10/28/2024 Medications Section Medication Name Status Code CodeSystem Dose Route Frequency Admin Type Sig Text Start Date End Date Indication Bisacodyl Suppository 10 MG active 9 RXNORM 1 suppo sitor y Rectal as needed PRN Inser t 1 suppo sitor y recta lly every 24 hours as neede d for Const ipati on 2024 - Constipatio n Fleet Enema Enema 7-19 GM/118ML active 13284 5 RXNORM 1 appli catio n Rectal as needed PRN Inser t 1 appli catio n recta lly every 24 hours as neede d for const ipati on 2024 - constipatio n Pantoprazol e Sodium Tablet Delayed Release 20 MG active 56286 2 RXNORM 1 table t Oral one time a day Routin e Give 1 table t by mouth one time a day relat ed to GASTR O-ESO PHAGE AL REFLU X DISEA SE WITHO UT ESOPH AGITI S (K21. 9) 2024 - - Benazepril HCl Oral Tablet 40 MG aborted 06514 9 RXNORM 40 mg Oral one time a day Routin e Give 40 mg by mouth one time a day relat ed to GURMEET ORDOÑEZ ([place]) HYPER TENSI ON (I10) Hold for SBP<1 00, DBP<5 0, Pulse <50 11/10 - cloBAZam Oral Tablet 10 MG active 0 RXNORM 10 mg Oral two times a day Routin e Give 10 mg by mouth two times a day relat ed to EPILE PSY, UNSPE CIFIE D, INTRA CTABL E, WITHO UT STATU S EPILE PTICU S (G40. 919) 2024 - - Milk of Magnesia Suspension 400 MG/5ML active 37517 7 RXNORM 30 ml Oral as needed PRN Give 30 ml by mouth every 24 hours as neede d for const ipati on 2024 - constipatio n Lovastatin Oral Tablet 40 MG active 5 RXNORM 40 mg Oral one time a day Routin e Give 40 mg by mouth one time a day relat ed to HYPER LIPID EMIA, UNSPE CIFIE D (E78. 5) 2024 - - Eliquis Oral Tablet active 10 mg Oral two times a day Routin e Give 10 mg by mouth two times a day relat ed to CHRON IC EMBOL ISM AND THROM BOSIS OF UNSPE CIFIE D DEEP VEINS OF LOWER EXTRE MITY, BILAT ERAL (I82. 503) for 7 Days AND Give 5 mg by mouth two times a day relat ed to CHRON IC EMBOL ISM AND THROM BOSIS OF UNSPE CIFIE D DEEP VEINS OF LOWER EXTRE MITY, BILAT ERAL (I82. 503) 11/05 - 5 mg Oral two times a day Routin e Give 10 mg by mouth two times a day relat ed to CHRON IC EMBOL ISM AND THROM BOSIS OF UNSPE CIFIE D DEEP VEINS OF LOWER EXTRE MITY, BILAT ERAL (I82. 503) for 7 Days AND Give 5 mg by mouth two times a day relat ed to CHRON IC EMBOL ISM AND THROM BOSIS OF UNSPE CIFIE D DEEP VEINS OF LOWER EXTRE MITY, BILAT ERAL (I82. 503) 2024 - - Magnesium Citrate Oral Solution active 04798 60 RXNORM 296 ml Oral as needed PRN Give 296 ml by mouth every 24 hours as neede d for Const ipati on 2024 - Constipatio n Carvedilol Tablet 3.125 MG aborted 31963 4 RXNORM 1 table t Oral two times a day Routin e Give 1 table t by mouth two times a day for Hyper tensi on relat ed to [facility] TIA ([place]) HYPER TENSI ON (I10) Hold for SBP<1 00, DBP<5 0, Pulse <50 11/03 Hypertensio n amLODIPine Besylate Oral Tablet 2.5 MG aborted 36903 6 RXNORM 2.5 mg Oral one time a day Routin e Give 2.5 mg by mouth one time a day relat ed to [facility] ([place]) HYPER TENSI ON (I10) Hold for SBP<1 00, DBP<5 0, Pulse <50 11/03 - Ferrous Sulfate Oral Tablet 325 (65 Fe) MG active 39086 5 RXNORM 1 table t Oral one time a day Routin e Give 1 table t by mouth one time a day relat ed to ENCOU NTER FOR PROPH YLACT IC MEASU RES, UNSPE CIFIE D (Z29. 9) 2024 - - Klor-Con M10 Oral Tablet Extended Release 10 MEQ active 95233 99 RXNORM 10 mEq Oral one time a day Routin e Give 10 mEq by mouth one time a day relat ed to ENCOU NTER FOR PROPH YLACT IC MEASU RES, UNSPE CIFIE D (Z29. 9) 2024 - - Citalopram Hydrobromid e Oral Tablet 40 MG aborted 89630 4 RXNORM 1.5 table t Oral one time a day Routin e Give 1.5 table t by mouth one time a day relat ed to DEPRE SSION , UNSPE CIFIE D (F32. A) 10/28 - Aspirin Oral Tablet Delayed Release 81 MG active 64183 6 RXNORM 81 mg Oral one time a day Routin e Give 81 mg by mouth one time a day relat ed to CHRON IC EMBOL ISM AND THROM BOSIS OF [facility] AL VEIN, BILAT ERAL (I82. 513) 2024 - - ARIPiprazol e Oral Tablet 2 MG active 45654 4 RXNORM 2 mg Oral one time a day Routin e Give 2 mg by mouth one time a day relat ed to DEPRE SSION , UNSPE CIFIE D (F32. A) 2024 - - MiraLax Oral Powder 17 GM/SCOOP active 09438 5 RXNORM 1 scoop Oral as needed PRN Give 1 scoop by mouth every 24 hours as neede d for Const ipati on Disso lve in 4-8 0z of liqui d 2024 - Constipatio n Tuberculin PPD Solution 5 UNIT/0.1ML active 06419 2 RXNORM 0.1 ml Intrad ermal one time a day Routin e Injec t 0.1 ml intra derma lly one time a day for TB (Tube rculo sis) Scree lanre for 1 Admin istra tions AND Injec t 0.1 ml intra derma lly one time a day every 14 day(s ) for TB (Tube rculo sis) Scree lanre for 1 Admin istra tions 10/29 TB (Tuberculos is) Screening 12092 2 RXNORM 0.1 ml Intrad ermal one time a day Routin e Injec t 0.1 ml intra derma lly one time a day for TB (Tube rculo sis) Scree lanre for 1 Admin istra tions AND Injec t 0.1 ml intra derma lly one time a day every 14 day(s ) for TB (Tube rculo sis) Scree lanre for 1 Admin istra tions 11/25 TB (Tuberculos is) Screening Citalopram Hydrobromid e Oral Tablet 40 MG active 74295 4 RXNORM 1.5 table t Oral one time a day Routin e Give 1.5 table t by mouth one time a day relat ed to DEPRE SSION , UNSPE CIFIE D (F32. A) 1 and 03/04 tab 2024 - - Calcium Oral Tablet 500 MG active 500 mg Oral two times a day Routin e Give 500 mg by mouth two times a day relat ed to ENCOU NTER FOR PROPH YLACT IC MEASU RES, UNSPE CIFIE D (Z29. 9) 2024 - - Tylenol Oral Capsule 325 MG active 97793 39 RXNORM 2 capsu le Oral as needed PRN Give 2 capsu le by mouth every 6 hours as neede d for Pain - Mild 2024 - Pain - Mild Benazepril HCl Oral Tablet active 20 mg Oral one time a day Routin e Give 20 mg by mouth one time a day relat ed to GURMEET ORDOÑEZ ([place]) HYPER TENSI ON (I10) Hold for SBP<1 00, DBP<5 0, Pulse <50 2024 - - Mental Status Section Date Assessment Total Score Description 11/04/2024 BIMS 15 cognitively int act CAM 0 No delirium ind icated PHQ-9 00 11/04/2024 BIMS 15 cognitively int act CAM 0 No delirium ind icated PHQ-9 00 Plan of Treatment Section Interventions Intervention Code Code System Display Name Proposed D ate Problems Problem # Description Date of onset Resolved Date Code CodeSystem Concern Status 1 ALTERED MENTAL STATUS, UNSPECIFIED 10/28/[address] active 2 ANXIETY DISORDER, UNSPECIFIED 10/28/[address] active 3 CEREBRAL INFARCTION, UNSPECIFIED 10/28/[address] active 4 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, BILATERAL 10/28/[address] active 5 CHRONIC EMBOLISM AND THROMBOSIS OF UNSPECIFIED DEEP VEINS OF LOWER EXTREMITY, BILATERAL 10/28/[address] active 6 CONSTIPATION, UNSPECIFIED 10/28/[address] active 7 DEPRESSION, UNSPECIFIED 10/28/[address] active 8 ENCOUNTER FOR PROPHYLACTIC MEASURES, UNSPECIFIED 10/28/[address] active 9 EPILEPSY, UNSPECIFIED, INTRACTABLE, WITHOUT STATUS EPILEPTICUS 10/28/[address] active 10 ESSENTIAL (PRIMARY) HYPERTENSION 10/28/[address] active 11 GASTRO-ESOPHAGEAL REFLUX DISEASE WITHOUT ESOPHAGITIS 10/28/[address] active 12 HYPERLIPIDEMIA, UNSPECIFIED 10/28/[address] active 13 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, NOT INTRACTABLE, WITHOUT STATUS EPILEPTICUS 10/28/[address] active 14 ORTHOSTATIC HYPOTENSION 10/28/[address] active 15 OTHER SPECIFIED ABNORMAL FINDINGS OF BLOOD CHEMISTRY 10/28/[address] active 16 RHABDOMYOLYSIS 10/28/[address] ac tive 17 SYNCOPE AND COLLAPSE 10/28/[address] active Reason for Referral No Reasons for Referral Entered Diagnostic Results Result Code Code System Date Test Result Interpretation Reference Range Status Notes FS5233-5 LOINC 11/10 BMP / Complete Blood Count / Cogent- Completed Result for: Kelly Kwong ( 195 7, F) 1239999 9-9 LOINC 11/08 Cogent- Value: See Attachment Units: Normal Final 788-0 LOINC 11/08 RDW Value: 13.9 Units: % Normal 11.7-14.4 Final 5905-5 LOINC 11/08 MONO% Value: 8.1 Units: % Normal 4.7-12.5 Final 54325-6 LOINC 11/08 LYMPH% Value: 20.4 Units: % Normal 19.3-51.7 Final 770-8 LOINC 11/08 NEUT% Value: 68.3 Units: % Normal 34.0-71.1 Final 706-2 LOINC 11/08 BASO% Value: 1.1 Units: % Normal 0.1-1.2 Final 713-8 LOINC 11/08 EOS% Value: 2.1 Units: % Normal 0.7-5.8 Final 4544-3 LOINC 11/08 HCT Value: 40.6 Units: % Normal 34.1-44.9 Final 3097-3 LOINC 11/08 BUN/CREAT RATIO Value: 22.7 Units: {calc} High 10-20 Final 787-2 LOINC 11/08 MCV Value: 98.4 Units: fL High 79.4-94.8 Final 777-3 LOINC 11/08 MPV Value: 8.6 Units: fL Low 9.4-12.3 Final 785-6 LOINC 11/08 MCHC Value: 32.9 Units: g/dL Normal 32.2-35.5 Final 718-7 LOINC 11/08 HGB Value: 13.3 Units: g/dL Normal 11.2-15.7 Final 71556-6 [facility] 11/08 ANION GAP Value: 13.2 Units: mEq/L Normal 8-16 Final 2951-2 [facility] 11/08 SODIUM Value: 138 Units: mEq/L Normal 136-145 Final 2823-3 [facility] 11/08 POTASSIUM Value: 5.2 Units: mEq/L High 3.5-5.1 Final 2075-0 [facility] 11/08 CHLORIDE Value: 102 Units: mEq/L Normal 98-107 Final 9 [facility] 11/08 CARBON DIOXIDE (BICARB) Value: 28 Units: mEq/L Normal 21-31 Final 96441-0 [facility] 11/08 CALCIUM Value: 10.1 Units: mg/dL Normal 8.6-10.2 Final 3094-0 [facility] 11/08 BLOOD UREA NITROGEN (BUN) Value: 15.9 Units: mg/dL Normal 7.0-25.0 Final 2345-7 [facility] 11/08 GLUCOSE Value: 91 Units: mg/dL Normal 74-109 Final 2160-0 [facility] 11/08 CREATININE Value: 0.70 Units: mg/dL Normal 0.6-1.3 Final 46127-8 [facility] 11/08 Estimated GFR AA Value: >60.0 Units: mL/min/{1.7 3_m2} Normal >60.0 Final 00317-0 [facility] 11/08 Estimated GFR Value: >60.0 Units: mL/min/{1.7 3_m2} Normal >60.0 Final 785-6 [facility] 11/08 MCH Value: 32.3 Units: pg High 25.6-32.2 Final 777-3 [facility] 11/08 PLT Value: 446 Units: x10^3/uL High 182-369 Final 736-9 [facility] 11/08 LYMPH# Value: 1.7 Units: x10^3/uL Normal 1.18-3.74 Final 751-8 [facility] 11/08 NEUT# Value: 5.6 Units: x10^3/uL Normal 1.56-6.13 Final 704-7 [facility] 11/08 BASO# Value: 0.1 Units: x10^3/uL High 0.01-0.08 Final 711-2 [facility] 11/08 EOS# Value: 0.2 Units: x10^3/uL Normal 0.04-0.36 Final 742-7 [facility] 11/08 MONO# Value: 0.7 Units: x10^3/uL High 0.24-0.36 Final 6690-2 [facility] 11/08 WBC Value: 8.2 Units: x10^3/uL Normal 3.98-10.04 Final 789-8 [facility] 11/08 RBC Value: 4.13 Units: 10*6/uL Normal 3.93-5.22 Final Test Code Code System Name Date 11/08/2024 Complete Blood Count 025 BMP 11/08/2024 Complete Blood Count 025 BMP 11/08/2024 Complete Blood Count 025 Social History Social History Observation Description Start Date End Date Code Code System Current Smoking Status Tobacco smoking consumption unknown 166791220 SNOMED CT Sex Assigned At Female 1955 13466-0 [facility] Gender Identity Sexual Orientation Vital Signs Code Code System Vitals Name Values and Units Timing Information 9279-1 [facility] Respiratory Rate Value=18.0 Units=/m in 11/13/2024 8310-5 [facility] Body Temperature Value=98.3 Units= F 11/13/2024 8867-4 [facility] Heart rate Dvkji=991.0 Units=/min 11/13/2024 76415-0 [facility] O2 % dC Oximetry Value=95.0 Units= % 11/13/2024 8462-4 [facility] Blood Pressure-Diastolic Value=91 Un its=mmHg 11/13/2024 8480-6 [facility] Blood Pressure-Systolic Eodcb=371 Un its=mmHg 11/13/2024 11599-3 [facility] Pain Level Value=0.0 11/13/2024 66266-7 [facility] Weight Rcnta=911.0 Units=Lbs 12/2024 8302-2 [facility] Height Value=62.0 Units=Inches 10/29/2024
--- OUTSIDE RECORDS SUMMARY | 2024-11-13 09:41 | XMS_ITS | Encounter Summary ---
Author Organization [facility] Address [address] [place] [address] Care Team Providers Care Press Helper Name Role Phone IVY Beard Sr., Michael Dave Primary Care Pro vider Encounter Details Date Type Department Care Team (Late st Contact Info) Description 05/08/2009 Ancillary Orders [facility] Imaging External Read [address] [place] [id number] Reynaldo Beard Sr., FNP [address] [place] [address] Screening Mammogram Social History Tobacco Use Types Packs/Day Years Used Date Smoking Tobacco: Never Assessed Comments Unknown Sex and Gender Information Value Date Recorded Sex Assigned at Not on file Legal Sex Female 3:11 AM LABEL FOLDER Gender Identity Not on file Sexual Orientation Not on file documented as of this encounter Plan of Treatment Not on file documented as of this encounter Results * MAMMO SCREENING BILAT (05/08/2009 8:36 AM LABEL FOLDER) Anatomical Region Laterality Modality Breast Bilateral Mammography Narrative 05/09/2009 10:40 AM LABEL FOLDER Bilateral Mammogram Reason for Exam: Screening Comparison: [...] mammogram documented in this encounter Care Teams Press Helper Relationship Specialty Start Date End Date Reynaldo Beard Sr., FNP [address] [place] [address] PCP - General NURSE PRACTITIONER 05/28/13 documented as of this encounter
--- OUTSIDE RECORDS SUMMARY | 2024-11-13 09:41 | XMS_ITS | Encounter Summary ---
Author Organization [facility] Address [address] [place] [address] Care Team Providers Care Commercial Driver'S License Driver Name Role Phone IVY Beard Sr., Michael Dave Primary Care Pro vider Encounter Details Date Type Department Care Team (Latest Contact Info) Description 10/06/2002 Inpatient Historical [facility] Emergency Department [address] [place] [address] Papi White III, MD [address] [address] FX SHAFT TIBIA W FIB-OPEN (Primary Dx) Social History Tobacco Use Types Packs/Day Years Used Date Smoking Tobacco: Never Assessed Comments Unknown Sex and Gender Information Value Date Recorded Sex Assigned at Not on file Legal Sex 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
--- OUTSIDE RECORDS SUMMARY | 2024-11-13 09:41 | XMS_ITS | Encounter Summary ---
Author Organization [employer] Address [address] [facility] Attn: [place] [address] Care Team Providers Care Armature Straightener Name Role Phone IVY Beard Sr., Reynaldo Shaw Primary Care Pro vider Encounter Details Date Type Department Care Team (Late st Contact Info) Description 04/10/2001 Outpatient Historical Louisa Marquez, DO [address] [place], [place] [address] Social History Tobacco Use Types Packs/Day Years Used Date Smoking Tobacco: Never Assessed Comments Unknown Sex and Gender Information Value Date Recorded Sex Assigned at Not on file 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
--- OUTSIDE RECORDS SUMMARY | 2024-11-13 09:41 | XMS_ITS | Encounter Summary ---
Author Organization [facility] Address [address] [place] [address] Care Team Providers Care Auto Air Conditioning Installer Name Role Phone IVY Beard Sr., Michael Dave Primary Care Pro vider Encounter Details Date Type Department Care Team (Latest Contact Info) Description 11/17/2002 Outpatient Historical [facility] Orthopedics- 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
--- OUTSIDE RECORDS SUMMARY | 2024-11-13 09:41 | XMS_ITS | Encounter Summary ---
Author Organization [facility] Address [address] [place] [address] Care Team Providers Care Videotape Sales Representative Name Role Phone IVY Beard Sr., Michael Dave Primary Care Pro vider Encounter Details Date Type Department Care Team (Latest Contact Info) Description 02/02/2003 Outpatient Historical [facility] Orthopedics- 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
--- OUTSIDE RECORDS SUMMARY | 2024-11-13 09:41 | XMS_ITS | Clinical Summary ---
Author Organization [facility] Address [address] [place] [address] Phone Care Team Providers Care Contracts Officer Name Role Phone Kisha Weaver, IVY, Reynaldo [...] on file Legal Sex Female 3:11 AM SOFTBALL WINDER Gender Identity Not on file Sexual Orientation [...] MAMMO SCREENING BILAT Routine 05/08/2009 8:36 AM SOFTBALL WINDER Screening Mammogram from Last 3 Months or Most Recently Relevant to Health Maintenance Results * MAMMO SCREENING BILAT (05/08/2009 8:36 AM SOFTBALL WINDER) Anatomical Region Laterality Modality Breast Bilateral Mammography Narrative 05/09/2009 10:40 AM SOFTBALL WINDER Bilateral Mammogram Reason for Exam: Screening Comparison: [...] Health Maintenance Insurance [place] Care Teams Contracts Officer Relationship Specialty Start Date End Date Reynaldo Beard Sr., FNP [address] [place] [address] PCP - General NURSE PRACTITIONER 05/28/13
--- OUTSIDE RECORDS SUMMARY | 2024-11-13 09:41 | XMS_ITS ---
Author Organization Unknown Problems Date Problem Result OnSetDate Icd10 SnomedCode Severity Cu stom 11/03/2024 12:00:00 AM Chronic deep venous thrombosis of upper extremity 11/03/2024 12:00:00 AM [id number] 11/03/2024 12:00:00 AM Seizure disorder 11/03/2024 12:00:00 AM [id number] 11/03/2024 12:00:00 AM Post-discharge follow-up 11/03/2024 12:00:00 AM [id number] 11/03/2024 12:00:00 AM Orthostatic hypotension 11/03/2024 12:00:00 AM [id number]
--- OUTSIDE RECORDS SUMMARY | 2024-11-13 09:41 | XMS_ITS | Encounter Summary ---
Author Organization [facility] Address [address] [place] [address] Care Team Providers Care Occupational Health Technician Name Role Phone IVY Beard Sr., Michael Dave Primary Care Pro vider Encounter Details Date Type Department Care Team (Latest Contact Info) Description 10/06/2002 Outpatient Historical [facility] [address] 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
--- OUTSIDE RECORDS SUMMARY | 2024-11-13 09:41 | XMS_ITS | Encounter Summary ---
Author Organization [facility] Address [address] [place] [address] Care Team Providers Care Photolithographic Stripper Name Role Phone IVY Beard Sr., Michael Dave Primary Care Pro vider Encounter Details Date Type Department Care Team (Latest Contact Info) Description 10/27/2002 Outpatient Historical [facility] Orthopedics- 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
--- OUTSIDE RECORDS SUMMARY | 2024-11-13 09:41 | XMS_ITS | Encounter Summary ---
Author Organization [facility] Address [address] [place] [address] Care Team Providers Care Business Center Manager Name Role Phone IVY Beard Sr., Michael Dave Primary Care Pro vider Encounter Details Date Type Department Care Team (Latest Contact Info) Description 12/23/2002 Outpatient Historical [facility] Operating Room [address] [place] [address] Papi White III, MD [address] [address] OTHER ORTHOPEDIC AFTERCARE (Primary Dx) Social History Tobacco Use Types Packs/Day Years Used Date Smoking Tobacco: Never Assessed Comments Unknown Sex and Gender Information Value Date Recorded Sex Assigned at Not on file Legal 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
--- OUTSIDE RECORDS SUMMARY | 2024-11-13 09:41 | XMS_ITS | Encounter Summary ---
Author Organization [facility] Address [address] [place] [address] Care Team Providers Care Business Leader Name Role Phone IVY Beard Sr., Michael Dave Primary Care Pro vider Encounter Details Date Type Department Care Team (Latest Contact Info) Description 12/17/2002 Outpatient Historical [facility] Orthopedics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
--- OUTSIDE RECORDS SUMMARY | 2024-11-13 09:41 | XMS_ITS | Encounter Summary ---
Author Organization [facility] Address [address] [place] [address] Care Team Providers Care Offbearer Name Role Phone IVY Beard Sr., Michael Dave Primary Care Pro vider Reason for Referral * Outpatient Services (Routine) - Closed Specialty Diagnoses / Procedures Referred By Contac t Referred To Contact Radiology Diagnoses Abdominal pain Procedures US ABDOMEN LIMITED Reynaldo Beard Sr., FNP [address] [place] [address] Phone: tel: fax: [facility] [address] [place] [address] Phone: tel: fax: Referral ID Status Reason Start Date Expiration Date V isits Requested Visits Authorized [id number] Closed MTN View CTS to Schedule (SGF) 07/12/2013 08/12/2014 1 1 Encounter Details Date Type Department Care Team (Latest Contact Info) Description 07/12/2013 Ancillary Orders [facility] Centralized Scheduling [address] [place] [address] Reynaldo Beard Sr., FNP [address] [place], [place] [address] Abdominal pain (Primary Dx) Social History Tobacco Use Types Packs/Day Years Used Date Smoking Tobacco: Never Alcohol Use Standard Drinks/Week Comments No 0 (1 standard drink = 0.6 oz pur e alcohol) Comments No Sex and Gender Information Value Date Recorded Sex Assigned at Not on file Legal 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
--- OUTSIDE RECORDS SUMMARY | 2024-11-13 09:41 | XMS_ITS | Encounter Summary ---
Author Organization [facility] Address [address] [place] [address] Care Team Providers Care Fish Hatchery Supervisor Name Role Phone IVY Beard Sr., Michael Dave Primary Care Pro vider Encounter Details Date Type Department Care Team (Latest Contact Info) Description 12/29/2002 Outpatient Historical [facility] Orthopedics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
--- NOTE | 2024-11-13 09:56 | ED_ITS ---
HPI - Arrhythmia/Palpitations 2 General: Chief Complaint: Arrhythmia/Palpitations Stated Complaint: tachycardia; back pain Time Seen by Provider: 11/13/24 09:38 History of Present Illness: 69-year-old female presents emergency ro om from the residential via ambulance complaining of rapid heart rate and shortness of breath. When EMS first encountered patient she was in SVT, heart rate in the 180s and was treated with adenosine she converted to the 90s she remains in the 90s at this time. Planing some chest and back pain. She normally wears 2 L by nasal cannula maintaining her sats with that. Related Data Home Medications ?Medication ?Instructions ?Recorded ?Confirmed ferrous sulfate 325 mg (65 mg 325 mg PO DAILY 03/15/19 11/13/24 iron) tablet (iron) aspirin 81 mg tablet,delayed 81 mg PO DAILY 07/23/21 0 11/13/24 release (Adult Aspirin Regimen) acetaminophen 325 mg tablet 650 mg PO QID PRN Pain 11/13/24 (Tylenol) aripiprazole 2 mg tablet 2 mg PO DAILY 11/13/2411/13 benazepril 20 mg tablet 20 mg PO DAILY 11/13/2411/01 bisacodyl 10 mg rectal suppository 10 mg UT DAILY PRN Constipation 11/13/24 11/13/24 calcium carbonate 500 mg PO BID 11/13/2411/13 magnesium citrate 296 ml PO DAILY PRN constipa tion 11/13/24 11/13/24 magnesium hydroxide 400 mg/5 mL 30 ml PO DAILY PRN Con stipation 11/13/24 11/13/24 oral suspension (Milk of Magnesia) polyethylene glycol 3350 17 17 g PO DAILY 11/13/24 gram/dose oral powder (Miralax) sodium phosphates 19 gram-7 118 ml UT DAILY PRN consti pation 11/13/24 11/13/24 gram/118 mL enema (Fleet Enema) tuberculin PPD 5 tub. unit/0.1 mL 0.1 ml intradermal Q 14D 11/13/24 11/13/24 intradermal injection solution Previous Rx's ?Medication ?Instructions ?Recorded potassium chloride 10 mEq 10 meq PO DAILY 30 days #30 tabs 07/08/24 tablet,extended release(part/cryst) (Klor-Con M) lovastatin 40 mg tablet See Rx Instructions .Route 0 08/18/24 .COMPLEX 90 days #90 tabs apixaban 5 mg tablet (Eliquis) 5 mg PO BID #180 tabs 0 09/14/24 citalopram 40 mg tablet See Rx Instructions .Route 0 09/22/24 .COMPLEX #45 tabs pantoprazole 20 mg tablet,delayed See Rx Instructions .Route 09/22/24 release .COMPLEX #90 tabs clobazam 20 mg tablet (Onfi) 10 mg (1/2 x 20 mg) PO BI D #60 tabs 10/28/24 cephalexin 500 mg capsule 500 mg PO TID 7 days #21 cap s 11/13/24 metoprolol succinate 25 mg 12.5 mg (1/2 x 25 mg) PO DA ELLIE #15 11/13/24 tablet,extended release 24 hr tabs Allergies Allergy/AdvReac Type Severity Reaction Status Date / Time carbamazepine (From Allergy itching Verified 09/22/24 09:59 [place]) Review of Systems 2 Const: Denies: fever(s) or chills Card: Reports: palpitations; Denies: chest pain Resp: Denies: dyspnea GI: Denies: abdominal pain : Denies: dysuria, urinary frequency or urinary urgency Musc: Denies: neck pain or back pain Skin/Breast: Denies: rash PFSH ED 2 PFSH: Medical History Orthostatic hypotension Chronic deep vein thrombosis (DVT) Syncope Elevated troponin Focal 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 started Eliquis 09/14/24 Anxiety and depression Lumbar disc disease with radiculopathy Hyperlipidemia Hypertension Surgical History History of open reduction and internal fixation (ORIF) procedure Family History Other CAD (coronary artery disease) Social History Smoking and tobacco/nicotine status: never used tobacco/nicotine Second hand smoke exposure: No Alcohol intake: never Substance/Drug Use: never Adopted: No Caregiver/support person: No Lives independently: Yes Do you think of yourself as: Straight/Heterosexual Current gender identity: Female Physical Exam 2 Const: GENERAL APPEARANCE: cooperative ORIENTATION/CONSCIOUSNESS: Yes awake, Yes oriented to person, Yes oriented to place and Yes oriented to time HENMT: COMMON NORMALS: normocephalic, atraumatic and hearing grossly normal bilaterally HEAD & SCALP: normocephalic and atraumatic Resp: COMMON NORMALS: normal respiratory effort, No retractions, No use of accessory muscles and clear to auscultation bilaterally AUSCULTATION: clear to auscultation bilaterally Cardio: COMMON NORMALS: regular rate, regular rhythm and No murmurs present (Cardio) RATE: regular rate RHYTHM: regular rhythm GI: COMMON NORMALS: Soft to palpation and No hepatosplenomegaly present A USCULTATION: Yes normoactive bowel sounds PALPATION: Yes Soft to palpation, No Tenderness to palpation present (GI), No Guarding due to palpation present (GI) and Yes No hepatosplenomegaly present Extremity: COMMON NORMALS: normal to inspection, capillary refill normal, no clubbing, cyanosis or edema, no calf tenderness and no pedal edema Neuro: SENSORIUM/ORIENTATION: Yes oriented to person, Yes oriented to place and Yes oriented to time Skin: COMMON NORMALS: no rashes or lesions noted GENERAL SKIN EXAM: no rashes or lesions noted Course 2 Vital Signs: Vital signs: Vital Signs Temperature 98.5 F 11/13/24 09:35 Pulse Rate 86 11/13/24 16:10 Respiratory Rate 18 11/13/24 09:35 Blood Pressure 159/98 11/13/24 16:10 Pulse Oximetry 94 11/13/24 16:10 Oxygen Delivery Me thod Nasal Cannula 11/13/24 16:00 Oxygen Flow Rate 2 11/13/24 16:00 MDM - Arrhythmia/Palpitations Medical Decision Making Patient converted in the field with adenosine she has been mildly tachycardic whenever she gets up but seen some heart rates up to 105 and 110. Her laboratory tests are unremarkable BUN and creatinine are normal urine spec gravity is actually on the low side. She is on anticoagulation for chronic DVT. Patient observed for time labs reviewed. BUN and creatinine are normal spec graph on the urine is normal. With the patient gets mildly tachycardic. Discussed with the hospitalist observation, he asked we give her IV fluids start metoprolol and discharge. Patient given IV fluids low-dose metoprolol. Continue to observe. Discharged home on metoprolol extended release 12.5 mg once daily. Medical Records I reviewed the patient's medical records. Lab Data I reviewed the patient's lab results. 11/13/24 09:52 11/13/24 09:52 Radiology Impressions Chest X-Ray 11/13/24 09:41 IMPRESSION: No acute findings. Laboratory Results WBC 7.34 10^3/uL (3.29-11.43) 11/13/24 09:52 RBC 3.73 10^6/uL (3.85-5.65) L 11/13/24 09:52 Hgb 11.60 g/dL (11.27-16.99) 11/13/24 09:52 Hct 36.9 % (36-47) 11/13/24 09:52 MCV 98.9 fl (85-98) H 11/13/24 09:52 MCH 31.1 pg (27-33) 11/13/24 09:52 MCHC 31.4 g/dL (30-55) 11/13/24 09:52 RDW 12.3 % (12.1-15.1) 11/13/24 09:52 Plt Count 453 10^3/cmm (157-399) H 11/13/24 09:52 MPV 9.3 fL (7.4-10.4) 11/13/24 09:52 Neut % (Auto) 71.5 % 11/13/24 09:52 Lymph % (Auto) 16.8 % 11/13/24 09:52 [place] % (Auto) 8.9 % 11/13/24 09:52 Eos % (Auto) 1.1 % 11/13/24 09:52 Baso % (Auto) 1.0 % 11/13/24 09:52 Neut # (Auto) 5.26 10^3/uL (1.8-7.7) 11/13/24 09:52 Lymph # (Auto) 1.2 10^3/uL (0.8-4.8) 11/13/24 09:52 [place] # (Auto) 0.7 10^3/uL (0.2-0.9) 11/13/24 09:52 Eos # (Auto) 0.1 10^3/uL (0.0-0.8) 11/13/24 09:52 Baso # (Auto) 0.1 10^3/uL (0.0-0.1) 11/13/24 09:52 Nucleated RBC % (auto) 0 % 11/13/24 09:52 Nucleated RBCs # 0.0 /100WBC 11/13/24 09:52 Sodium 139 mmol/L (136-145) 11/13/24 09:52 Potassium 4.7 mmol/L (3.5-5.1) 11/13/24 09:52 Chloride 103 mmol/L (98-107) 11/13/24 09:52 Carbon Dioxide 24 mmol/L (22-29) 11/13/24 09:52 Anion Gap 16.7 (5-19) 11/13/24 09:52 BUN 13 mg/dL (8-23) 11/13/24 09:52 Creatinine 0.6 mg/dL (0.5-0.9) 11/13/24 09:52 GFR Calculation 99.4 mL/min (90-130) 11/13/24 09:52 Glucose 112 mg/dL (65-115) 11/13/24 09:52 Calculated Osmolality 289 mOsm/kg (285-295) 11/13/24 09:52 Lactic Acid 0.9 mmol/L (0.5-2.2) 11/13/24 12:33 Calcium 10.4 mg/dL (8.5-10.5) 11/13/24 09:52 Total Bilirubin 0.2 mg/dL (0.15-1.2) 11/13/24 09:52 AST 28 U/L (0-32) 11/13/24 09:52 ALT 51 U/L (0-33) H 11/13/24 09:52 Alkaline Phosphatase 132 U/L (35-105) H 11/13/24 09:52 Troponin T Baseline 57 ng/L (0-10) H 11/13/24 09:52 Troponin T 120 Minute 56.93 ng/L (0-10) H 11/13/24 12:33 Delta Troponin T -0.07 ABS# (0-10) L 11/13/24 12:33 Total Protein 7.0 g/dL (6.6-8.7) 11/13/24 09:52 Albumin 3.6 g/dL (3.5-5.2) 11/13/24 09:52 Globulin 3.4 g/dL (1.3-4.6) 11/13/24 09:52 Urine Color Yellow (Yellow) 11/13/24 10:54 Urine Appearance Cloudy (CLEAR) A 11/13/24 10:54 Urine pH 6.0 (5-7) 11/13/24 10:54 Ur Specific [place] 1.012 (1.005-1.030) 11/13/24 10:54 Urine Protein Negative (Negative) 11/13/24 10:54 Urine Glucose (UA) Negative (Normal) 11/13/24 10:54 Urine Ketones Negative (Negative) 11/13/24 10:54 Urine Blood Trace (Negative) A 11/13/24 10:54 Urine Nitrate Negative (Negative) 11/13/24 10:54 Urine Bilirubin Negative (Negative) 11/13/24 10:54 Urine Urobilinogen 1.0 mg/dL (Negative) 11/13/24 10:54 Ur Leukocyte Esterase 3+ (Negative) A 11/13/24 10:54 Urine RBC 0-2 /hpf (0-2) 11/13/24 10:54 Urine WBC >100 /hpf (0-5) H 11/13/24 10:54 Ur Squamous Epith Cells 0-5 /hpf (0-5) 11/13/24 10:54 Amorphous Sediment Not Reportable 11/13/24 10:54 Urine Bacteria 4+ /hpf (NONE) H 11/13/24 10:54 Hyaline Casts 1.21 /lpf 11/13/24 10:54 All radiology interpretation(s) finalized by discharge EKG Data EKG 1: Interpretation: EKG 11/13/2004 9:43 AM sinus rhythm rate 92 UT interval 162 QTc 404. EKG compared to 10/24/2004 patient previously in a flutter no longer in flutter. Other EKG comments: Chest X-Ray 11/13/24 09:41 IMPRESSION: No acute findings. EKG 2: Interpretation: EKG 913 04/2024 1250. Sinus rhythm rate 88 UT interval 137 [address]Tc 424[address] No acute [address] changes no significant change from EKG done earlier same day Other EKG comments: Chest X-Ray 11/13/24 09:41 IMPRESSION: No acute findings. EKG 3: Interpretation: EKG 11/13/2024 sinus rhythm rate of 88 UT interval [address]Tc 422[address] No acute ST elevation. No change from EKGs done earlier same day Other EKG comments: Chest X-Ray 11/13/24 09:41 IMPRESSION: No acute findings. Discharge Plan Discharge Patient Disposition: Home Clinical Impression: Supraventricular tachycardia Condition: Stable Prescriptions: New metoprolol succinate 25 mg tablet extended release 24 hr 12.5 mg PO DAILY Qty: 15 0RF cephalexin 500 mg capsule 500 mg PO TID 7 Days Qty: 21 0RF No Action ferrous sulfate [iron] 325 mg (65 mg iron) tablet 325 mg PO DAILY aspirin [Adult Aspirin Regimen] 81 mg tablet,delayed release (DR/EC) 81 mg PO DAILY citalopram 40 mg tablet See Rx Instructions .ROUTE .COMPLEX Qty: 45 11RF Dose Instruction: TAKE 1 AND 1/2 TABLETS BY MOUTH DAILY Rx Instructions: TAKE 1 AND 1/2 TABLETS BY MOUTH DAILY pantoprazole 20 mg tablet,delayed release (DR/EC) See Rx Instructions .ROUTE .COMPLEX Qty: 90 3RF Dose Instruction: Take 1 tablet by mouth once daily Rx Instructions: Take 1 tablet by mouth once daily potassium chloride [Klor-Con M10] 10 mEq tablet,ER particles/crystals 10 meq PO DAILY 30 Days Qty: 30 2RF lovastatin 40 mg tablet See Rx Instructions .ROUTE .COMPLEX 90 Days Qty: 90 3RF Dose Instruction: TAKE 1 TABLET BY MOUTH DAILY Rx Instructions: TAKE 1 TABLET BY MOUTH DAILY Eliquis 5 mg tablet 5 mg PO BID Qty: 180 1RF Rx Instructions: 10mg (2 tabs) twice a day for 7 days, then 5mg twice a day clobazam [Onfi] 20 mg tablet 10 mg PO BID Qty: 60 5RF tuberculin PPD 5 tub. unit /0.1 mL Solution 0.1 ml INTRADERMAL Q14D acetaminophen [Tylenol] 325 mg Tablet 650 mg PO QID PRN (Reason: Pain) magnesium hydroxide [Milk of Magnesia] 400 mg/5 mL Suspension 30 ml PO DAILY PRN (Reason: Constipation) calcium carbonate [Calcium 500] 500 mg calcium (1,250 mg) Tablet 500 mg PO BID bisacodyl 10 mg Suppository 10 mg UT DAILY PRN (Reason: Constipation) Fleet Enema 19-7 gram/118 mL Enema 118 ml UT DAILY PRN (Reason: constipation ) magnesium citrate Solution 296 ml PO DAILY PRN (Reason: constipation ) benazepril 20 mg Tablet 20 mg PO DAILY polyethylene glycol 3350 [Miralax] 17 gram/dose Powder 17 g PO DAILY aripiprazole 2 mg Tablet 2 mg PO DAILY Discharge Orders: Discharge ED (Routine); Ordered 11/13/24 Ordered By: Michael Viveros Referrals: Cherelle Quinn, INDUSTRIAL RELATIONS ANALYST [Primary Care Provider, Family Practice] Discharge Diet: Usual diet Discharge Activity: Resume usual activity Patient Instructions: Opioid Safety, Pain Management, Patient Portal & Barb Instructions Activity Restrictions/Additional Instructions: [facility]. It is very important that you follow up as instructed or that you return to the Emergency Department should you have concerns or if your condition changes or worsens in any way. Emergency department visits are focused on emergent conditions, in some cases you may require further evaluation on an outpatient basis. You were seen in the emergency room after an episode of SVT. You are converted with appropriate medications in the field. We started you on metoprolol here in the emergency room. Recommend you follow-up with your primary care doctor as an outpatient within the next week. We also noted you have a bladder infection and recommend starting oral antibiotics. (Please note that included in your discharge packet is information concerning opioid safety and pain management. This information is given to all patients were discharged from the ER regardless of their discharge diagnosis or the medicines they usually take or are prescribed.) Print Language: South African Coding Level of Care Code ED Telecommunications Field Technician for Shayy Guardado
[2024-11-13 09:57] LABS: Hematocrit 36.9 % (36-47); Hemoglobin 11.60 g/dL (11.27-16.99); Mean Corpuscular HGB Conc 31.4 g/dL (30-55); Mean Corpuscular Hemoglobin 31.1 pg (27-33); Mean Corpuscular Volume 98.9 fl (85-98); Nucleated Red Blood Cells % 0 %; Platelet Count 453 10^3/cmm (157-399); Red Blood Count 3.73 10^6/uL (3.85-5.65); White Blood Count 7.34 10^3/uL (3.29-11.43)
[2024-11-13 10:12] LABS: Alanine Aminotransferase 51 U/L (0-33); Albumin Level 3.6 g/dL (3.5-5.2); Alkaline Phosphatase 132 U/L (35-105); Anion Gap 16.7 (5-19); Aspartate Amino Transferase 28 U/L (0-32); Blood Urea Nitrogen 13 mg/dL (8-23); Calcium 10.4 mg/dL (8.5-10.5); Carbon Dioxide 24 mmol/L (22-29); Chloride 103 mmol/L (98-107); Creatinine Clr Calc Pharmacy 60.8553; Globulin 3.4 g/dL (1.3-4.6); Glucose 112 mg/dL (65-115); Osmolality Calculated 289 mOsm/kg (285-295); Potassium 4.7 mmol/L (3.5-5.1); Sodium 139 mmol/L (136-145); Total Protein 7.0 g/dL (6.6-8.7)
[2024-11-13 11:02] LABS: Glucose Urine UA Negative (Normal); Nitrate Urine Negative (Negative); Specific Gravity, Urine 1.012 (1.005-1.030)
[2024-11-13 11:07] LABS: Add Urine Microscopic? YES
[2024-11-13] MEDS: cefTRIAXone 1,000 mg SDV 1000 MG IVP (12:41)
--- NOTE | 2024-11-13 12:50 | ECG_ITS ---
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 Measurements Intervals [place] Rate: 88 P: 21 ND: 137 QRS: -9 QRSD: 86 T: 0 QT: 350 QTc: 424 Interpretive Statements SINUS RHYTHM MINIMAL VOLTAGE CRITERIA FOR LVH, CONSIDER NORMAL VARIANT [MEETS CRITERIA IN ONE OF: R(aVL), S(V1), R(V5), R(V5/V6)+S(V1)] Compared to ECG 11/13/2024 09:43:43 No significant changes Electronically Signed On 11-13-2024 18:50:57 CDT by Jasper Grijalva M.D. [email or web address]
[2024-11-13 13:02] LABS: Troponin 5 2HR 56.93 ng/L (0-10)
[2024-11-13 13:02] LABS: Troponin(5th) Baseline 57 ng/L (0-10)
[2024-11-13 13:04] LABS: Troponin 5 2HR Delta -0.07 ABS# (0-10)
[2024-11-13 13:05] LABS: Lactic Sepsis W/Reflex 0.9 mmol/L (0.5-2.2)
--- NOTE | 2024-11-13 14:48 | ECG_ITS ---
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 Measurements Intervals [place] Rate: 88 P: 39 NJ: 156 QRS: -9 QRSD: 84 T: 6 QT: 347 QTc: 422 Interpretive Statements SINUS RHYTHM POSSIBLE LEFT ATRIAL ENLARGEMENT [-0.1mV P-WAVE IN V1/V2] POSSIBLE LEFT VENTRICULAR HYPERTROPHY [VOLTAGE CRITERIA PLUS LAE OR QRS WIDENING] Compared to ECG 11/13/2024 12:50:36 No significant changes Electronically Signed On 11-13-2024 20:30:39 CDT by Jasper Grijalva M.D. [email or web address]
== END 2024-11-13 16:12 | disposition home or self-care (01) ==
PROVIDERS: Emergency Provider Family Medicine; PCP Registered Nurse
DX: I47.10 Supraventricular tachycardia, unspecified (principal); Z79.82 Long term (current) use of aspirin; Z79.01 Long term (current) use of anticoagulants; E78.5 Hyperlipidemia, unspecified; I10 Essential (primary) hypertension
CPT/HCPCS: 36415; 71045; 80053; 81001; 83605; 84484; 85025; 87040; 87086; 87186; 93005; 96361; 96374; 99285; J0696; J7030; J7040; J9999

== ENCOUNTER 2024-12-01 10:04 | Outpatient (CLI) | payer MEDICARE, MEDICAID, SELFPAY ==
--- NOTE | 2024-12-01 10:15 | USCV_ITS ---
Kelly Kwong Age: 69 Gender: F : 1955 Exam Date: 12/01/2024 10:26 Ordering Phys: Ana Wells Technologist: MARYLU [place] [facility] [place]ication: CHRONIC DVT VISUALIZED IN PRIOR IMAGING HISTORY: CHRONIC DVT PROCEDURES: Comparison:. 09/14/24 Venous duplex imaging was performed in bilateral lower extremities. The following venous structures were evaluated: common femoral vein, profunda vein, proximal portion of the greater saphenous vein, superficial femoral vein, and the popliteal vein. In addition, the posterior tibial and peroneal trunk were evaluated. FINDINGS: Reidentified chronic DVT bilateral from popliteal veins into the mid SFV. Partially occlusive with no acute DVT seen. CONCLUSIONS No acute DVT. Chronic, stable partially occlusive DVT bilateral popliteal to mid SFV. Dr. Jessica Emery DO (Electronically Signed) Final Date: 01 December 2024 11:18 S
== END 2024-12-01 10:05 | disposition home or self-care (01) ==
LOC: RAD 10:05
PROVIDERS: PCP Registered Nurse; Visit Provider Nurse Practitioner Family
DX: R60.0 Localized edema (principal); I82.513 Chronic embolism and thrombosis of femoral vein, bilateral; I82.533 Chronic embolism and thrombosis of popliteal vein, bilateral
CPT/HCPCS: 93970